=== PATIENT | female | born 1940 | race Caucasian/White ===

== ENCOUNTER 2017-02-04 12:27 | Emergency (ER) | payer MEDICARE ==
[2017-02-04 12:51] VITALS: BP 131/76
[2017-02-04] MEDS ORDERED: HYDROcodone/ACETAMIN 5-325 MG* 1 TAB PO ONE (12:58)
--- NOTE | 2017-02-04 13:11 | UC ---
Back Pain HPI - HPI Summary HPI Summary: 77 yo female with LBP radiating down both legs x 1-2 days onset after trimming trees hx spinal stenosis hx DDD sees Dr. Ford at pain [facility] for steroid injections it's been a long time since she has needed one no fever or chill no uti symptoms her symptoms are typical of her spinal stenosis when it flares - History of Current Complaint Chief Complaint: UCBackPain Stated Complaint: BACK PAIN Time Seen by Provider: 02/04/17 12:51 Hx Obtained From: Patient Hx Last Menstrual Period: n/a Onset/Duration: Sudden Onset, Lasting Days Timing: Constant Severity Initially: Severe Severity Currently: Severe - 8 Pain Scale Used: 0-10 Numeric Back Pain: Is Diffuse, Radiates To - down both legs Character: Dull, Aching Aggravating: Movement Alleviating: Nothing Related History: Similar Episode Dx As - spinal stenosis - Allergies/Home Medications Allergies/Adverse Reactions: Allergies Allergy/AdvReac Type Severity Reaction Status Date / Time Azithromycin [From Zithromax] Allergy Severe Swelling Verified 02/04/17 12:34 Of Face,Lips,& Throat Losartan Allergy Severe Swelling Verified 02/04/17 12:34 Of Face,Lips,& Throat Sulfa Antibiotics Allergy Severe Swelling Verified 02/04/17 12:34 Of Face,Lips,& Throat Cephalosporins Allergy Unknown Verified 02/04/17 12:34 Reaction Details Clarithromycin [From Biaxin] Allergy Unknown Verified 02/04/17 12:34 Reaction Details Fentanyl Allergy Unknown Verified 02/04/17 12:34 Reaction Details Lisinopril Allergy Unknown Verified 02/04/17 12:34 Reaction Details Ofloxacin Allergy Unknown Verified 02/04/17 12:34 Reaction Details Silver Sulfadiazine Allergy Unknown Verified 02/04/17 12:34 Reaction Details Soybean-containing Drug Allergy Unknown Verified 02/04/17 12:34 Products Reaction Details Tramadol Allergy Unknown Verified 02/04/17 12:34 Reaction Details PMH/Surg Hx/FS Hx/Imm Hx Endocrine History: Diabetes, Dyslipidemia Cardiovascular History: Hypertension Respiratory History: COPD GI/ History: Gastroesophageal Reflux Psychological History: Depression - Surgical History Surgical History: Yes Surgery Procedure, Year, and Place: [facility] KNEE [facility]PLACED([facility] ONE KNEE REPLACED IN [place]; parathyroid(2009, [facility] [place] gallbladder LONG TIME AGO. LEON CARPAL TUNNEL RELEASE; HYSTERECTOMY - Family History Known Family History: Positive: Hypertension - Social History Alcohol Use: None Substance Use Type: None Smoking Status (MU): Never Smoked Tobacco Have You Smoked in the Last Year: No - Immunization History Most Recent Influenza Vaccination: 2016 Most Recent Tetanus Shot: UTD Most Recent Pneumonia Vaccination: UTD Review of Systems Constitutional: Negative Skin: Negative Eyes: Negative ENT: Negative Respiratory: Negative Cardiovascular: Negative Gastrointestinal: Negative Genitourinary: Negative Motor: Negative Neurovascular: Negative Musculoskeletal: Arthralgia, Myalgia Neurological: Negative Psychological: Negative All Other Systems Reviewed And Are Negative: Yes Physical Exam Triage Information Reviewed: Yes Appearance: Well-Appearing, No Pain Distress, Well-Nourished Vital Signs: Initial Vital Signs Temp 97.4 F 02/04/17 12:41 Pulse 83 02/04/17 12:41 Resp 18 02/04/17 12:41 BP 131/76 02/04/17 12:41 Pulse Ox 95 02/04/17 12:41 Vital Signs Reviewed: Yes Eyes: Positive: Conjunctiva Clear ENT: Positive: Hearing grossly normal. Negative: Nasal congestion, Nasal drainage, Trismus, Muffled/hoarse voice Neck: Positive: Supple, Nontender Respiratory: Positive: Lungs clear, Normal breath sounds, No respiratory distress, No accessory muscle use Cardiovascular: Positive: RRR, No Murmur. Negative: Tachycardia, Bradycardia Musculoskeletal: Positive: Strength Intact, No Edema Neurological: Positive: Alert, Muscle Tone Normal Psychological Exam: Normal Skin Exam: Normal Back Pain Course/Dx - Differential Dx/Diagnosis Provider Diagnoses: acute exacerbation of spinal stenosis/DDD Discharge - Discharge Plan Condition: Stable Disposition: HOME Prescriptions: HYDROcodone/ACETAMIN 5-325 MG* [[place] 5-325 TAB*] 1 tab PO Q4H PRN #15 tab MDD 5 PRN Reason: Pain Patient Education Materials: Lumbar Spinal Stenosis (ED), Degenerative Disc Disease (ED) Referrals: Sinan Juarez MD [Primary Care Provider] - If Needed Additional Instructions: call your pain specialist for follow up (Dr. Ford)
== END 2017-02-04 13:15 | disposition home or self-care (01) ==
LOC: UCCORT 12:27
DX: M48.06 Spinal stenosis, lumbar region (principal); M51.36 Other intervertebral disc degeneration, lumbar region; Z88.1 Allergy status to other antibiotic agents; Z88.2 Allergy status to sulfonamides; Z88.8 Allergy status to other drugs, medicaments and biological substances
CPT/HCPCS: 99212; G0463

== ENCOUNTER 2017-12-30 09:10 | Emergency (ER) | payer MEDICARE ==
--- OUTSIDE RECORDS SUMMARY | 2017-12-30 09:20 | XMS REPORT ---
:1940 External Reference #:[id number] Author Organization [facility] Address [address] [address] Phone [phone] Care Team Providers Name Role Phone iSnan Juarez MD Care Team Information Area Counselor Unavailable Payers Type Date Identification Numbers Payment Provider Subscriber Commercial Effective: Policy Number: BCBS Medicare Jadyn Correa 2014 [id number] [facility] Number: [id number] [address] [address] PayID: [id number] JEFF Burris [phone] Problems Date Description Provider Status Onset: 01/08/2014 Allergic rhinitis Sinan Juarez MD Active Onset: 05/07/2013 Disorder of magnesium metabolism Sinan Juarez MD Active Onset: 10/11/2012 Mixed hyperlipidemia Sinan Juarez MD Active Onset: 04/11/2012 Urinary incontinence Sinan Juarez MD Active Onset: 10/20/2010 Type 2 diabetes mellitus Sinan Juarez MD Active Onset: 12/16/2009 Vitamin D deficiency Sinan Juarez MD Active Onset: 06/16/2009 Degenerative joint disease Sinan Juarez MD Active involving multiple joints Onset: 07/10/2005 Irritable bowel syndrome Active Onset: 07/10/2005 Peripheral venous insufficiency Active Onset: 07/10/2005 Lumbosacral spondylosis without Active myelopathy Onset: 10/28/2004 Hormone replacement therapy Sinan Juarez MD Active Onset: 07/05/2014 Hypoxemia Sinan Juarez MD Active Onset: 02/19/2015 Obstructive sleep apnea syndrome Sinan Juarez MD Active Onset: 02/19/2015 Essential tremor Sinan Juarez MD Active Onset: 06/16/2015 Essential hypertension Sinan Juarez MD Active Onset: 03/24/2016 Mild recurrent major depression Sinan Juarez MD Active Onset: 10/28/2004 Gastroesophageal reflux disease Sinan Juarez MD Active Onset: 12/19/2006 Depressive disorder Sinan Juarez MD Inactive Inactive: 03/24/2016 Onset: 07/19/2005 Angioedema Sinan Juarez MD Inactive Inactive: 03/24/2016 Onset: 09/03/2011 Acute sinusitis Inactive Inactive: 03/24/2016 Onset: 07/10/2005 Pure hypercholesterolemia Inactive Inactive: 03/24/2016 Onset: 07/10/2005 Morbid obesity Inactive Inactive: 03/24/2016 Onset: 11/19/2014 Type II diabetes mellitus Sinan Juarez MD Inactive uncontrolled Inactive: 03/24/2016 Onset: 07/05/2014 Benign essential hypertension Sinan Juarez MD Inactive Inactive: 03/24/2016 Onset: 10/05/2007 Localized, primary osteoarthritis Sinan Juarez MD Resolved of the lower leg Resolved: 10/13/2017 Onset: 07/27/2007 Primary hyperparathyroidism Sinan Juarez MD Resolved Resolved: 10/13/2017 Social History Type Date Description Comments Marital Status Lives With Alone Occupation Retired Cigarette Use Never Smoked Cigarettes ETOH Use Rarely consumes alcohol Smoking Patient has never smoked Allergies, Adverse Reactions, Alerts Date Description Reaction Status Severity Comments 07/04/2014 Cephalosporins active SOB/Angioedema 10/20/2010 Ofloxacin insomnia active 01/26/2014 Clarithromycin active 02/14/2006 Fentanyl active Throat Swelling 01/12/2005 Silver Sulfadiazine active Edema 07/04/2014 Biaxin active ? RXN 07/05/2014 Azithromycin active ? RXN 07/05/2014 Ofloxacin active Insomnia 05/12/2016 Soybean-containing Drug Anaphylaxis active Severe Products 05/12/2016 Tramadol lip swelling active 05/12/2016 Lisinopril eye swelling active Medications Medication Date Status Form Strength Qnty SIG Indications Ordering Provider Doxycycline 12/26 Hx Capsules 100mg 20cap 1 by mouth R05 Digiovann Monohydrate /2017 s twice a day a, - for 10 days Mia, 01/05 - only fill PHOTOGRAPHY MANAGER if worsening by 7/4 or not improving by 7/6 Citalopram 10/17 Active Tablets 20mg 90tab 1 by mouth F33.0 Digiovann Hydrobromide s every day aSinan MD Cholestyramine 04/04 Active Packet 4gm 60uni Take 1 K58.9 Digiovann ts Packet By a, Mouth Daily Sinan In Evening as Directed Estropipate 04/01 Active Tablets 0.75mg 180ta 2 pills by Z79.890 Digiovann bs mouth once a a, day MD Sinan Clotrimazole 01/27 Active Cream 1% 15gm 1 R21 King, application Aranza to affected PA area twice daily Fluticasone 11/26 Active Suspension 50mcg/Act 1unit 1 spray each J06.9 Digiovann Propionate /2016 s nostril a, daily Mia, PHOTOGRAPHY MANAGER J30.9 Freestyle 11/15/2016 Active Strips 100units use as E11.9 Digiovanna, Lite Test directed MD Sinan twice a day Amlodipine 10/21/2016 Active Tablets 5m 90tabs take one I10 Digiovanna, Besylate g tablet by MD Sinan mouth every day Ventolin HFA 06/14/2016 Active Aerosol 10 8gm 2 puffs every J45.40 Digiovanna, 8( 4 hours as MD Sinan 90 needed Ba se ) mc g/ Ac t Aspirin 03/10/[address] 81 OTC 1 by mouth Digiovanna, mg every day MD Sinan Glucometer 11/19/2014 Active 1units Check E11.65 Digiovanna, fingerstick MD Sinan blood sugar each moring, fasting E11.9 Test Strips For 11/19/2014 Active 50units Check blood E11.65 Ann, Glucometer sugar each am MD Sinan - fasting E11.9 Lancets For 11/19/2014 Active 50units Use each am to E11.65 Ann, Glucometer check fasting MD Sinan blood sugar E11.9 Metformin HCL 11/19/2014 Active Tablets 850mg 180tabs take one E11.65 Digiovanna, tablet by MD Sinan mouth twice a day with a meal E11.9 Glipizide ER 11/19/2014 Active Tablets ER 10mg 90tabs take one E11.65 Digiovanna, 24HR tablet by MD Sinan mouth every day E11.9 Nystatin-Triamcinolone 10/11/2014 Active Ointment 046363-1.1Unit/GM-% 60gm apply to B37.2 King, veronica Aranza, opal PA bid-tid Albuterol Sulfate 04/18/2014 Active Nebulizer (2.5mg/3ML) 0.083% 75ml 1 vial J20.9 Digiovann via a, nebulizer Sinan, every 4 MD hours as needed wheezing J45.40 [facility] Vitamin D3 04/11/2012 Active Capsules 1000Unit 1 po qd E55.9 Sinan Juarez MD Nabumetone 07/14/2011 Active Tablets 500mg 180t take one M15.0 Digiovanna, abs tablet by MD Sinan mouth twice a day with food M15.9 Simvastatin 12/11/2008 Active Tablets 20mg 90tabs take one E78.2 Digiovanna, tablet by MD Sinan mouth every day E78.0 Desloratadine Active Tablets 5mg 1 by mouth T78.3xxD Unknown every day Levocetirizine Active Tablets 5mg 90tab 1 by mouth T78.3xxD Digiovanna, Dihydrochloride s every day MD Sinan J30.9 Epinephrine Active Solution 0.3mg/0.3ML 2units inject T78.3xxD Ann, Auto-Inject if MD Sinan needed then call 911. Famotidine Active Tablets 20mg 90tabs one by K21.9 Niiovandarrick, mouth MD Sinan once a day Diphenhydram Active Capsules 25mg 1 by Unknown ine HCL mouth every 6 hours as needed itching Hydroxyzine Active Tablets 25mg 270tabs 3 Digiovanna, HCL tablet MD Sinan before bed Metoprolol Active Tablets ER 50mg 90tabs 1 by I10 Digdaniele , Succinate ER 24HR mouth MD Sinan every at night G25.0 Oxybutynin Active Tablets ER 5mg 90tabs take one R32 Digiovanna, Chloride ER 24HR tablet by MD Sinan mouth every day Torsemide Active Tablets 10mg 90tabs take one I10 Digiovanna , tablet by MD Sinan mouth every day R60.9 Citalopram Hx Tablets 10mg 90tabs take one tablet F33.0 Digiovan Hydrobromide 018 - by mouth every na, day Daphne Menon MD Doxycycline Hyclate Hx Tablets 100mg 20tabs 1 by mouth twice J01.90 Digiovan 017 - a day x 10 days na, (w/ food but not Gatito Menon milk) Premarin Hx Tablets 0.3mg 90tabs 1 pill by mouth Z79.89 Digiovan 017 - once a day 0 na, Gatito Menon MD Mucus Relief ER Hx Tablets ER 600mg 60tabs 1 by mouth every J06.9 Digiovan 017 - 12HR 12 hours for 5 na, days then as Mia 017 needed for , PHOTOGRAPHY MANAGER persistent congestion Unisom Hx Tablets 25mg 1 by mouth every Digiovan 017 - night na, Gatito Menon MD Magnesium Hx Tablets 400mg 1 by mouth every E83.40 Digiovan 017 - day na, Gatito Menon MD Doxycycline Hyclate Hx Capsules 100mg 20caps 1 tablet by J01.00 Gatito Malik - mouth twice Aranza, daily for 10 PA 017 days J20.9 Amoxicillin 06/10/2016 - Hx Tablets 500mg 20tabs 1 by mouth R05 Schafer, 06/20/2016 twice a day DO Pola Amlodipine 04/08/2016 - Hx Tablets 2.5mg 90tabs 1 by mouth I10 Digiovanna Besylate 10/21/2016 every day , MD Sinan Prednisone 03/22/2016 - Hx Tablets 10mg as directed T78.3 Unknown 03/25/2016 x 3 Days xxD Diphenoxylate-Atro 03/10/2016 - Hx Tablets 2.5-0.0 1 qid prn R19.7 Digiovanna pine 06/21/2017 25mg loose stools , MD Sinan Freestyle Lite 01/05/2016 - Hx Strip 50units use to test E11.9 Digiovanna Test 11/15/2016 each morning , MD Sinan Magnesium Oxide 11/04/2015 - Hx Tablets 420mg 1 a day E83.4 Digiovanna 03/28/2017 2 Sinan MD Nebulizer 10/02/2015 - Hx Misc 1units Nebulizer + J20.9 Digiovanna 03/10/2016 tubing , MD Sinan Prednisone 10/02/2015 - Hx Tablets 20mg 10tabs 1 pill by J20.9 Digiovanna 10/12/2015 mouth twice , Sinan, a day with MD food for 5 days Mucinex 05/06/2015 - Hx Tablets ER 600mg 40tabs 1 by mouth R06.2 Digiovanna 05/15/2015 12HR every 12 , hours for 5 Mia, days then as PHOTOGRAPHY MANAGER needed for persistent congestion Tramadol 05/06/2015 - Hx Tablets 37.5-32 30tabs 1 by mouth B02.9 Digiovanna Hydrochloride/Acet 06/21/2017 5mg every 8 , Sinan, aminophen hours as MD needed for pain Famciclovir 04/30/2015 - Hx Tablets 500mg 21tabs 1 by mouth B02.9 Digiovanna 05/07/2015 every 8 , hours for 7 Mia, days PHOTOGRAPHY MANAGER Levofloxacin 04/23/2015 - Hx Tablets 250mg 5tabs 1 pill by J01.9 Digiovanna 04/28/2015 mouth once 0 , Sinan, daily for 5 MD days Prednisone 04/23/2015 - Hx Tablets 20mg 4tabs 1 pill by J20.9 Digiovanna 04/25/2015 mouth twice , Sinan, a day with food for 2 days Levofloxacin 04/13/2015 - Hx Tablets 750mg 7tabs 1 by mouth Digiovanna 04/20/2015 every day , MD Sinan Zostavax 02/19/2015 - Hx Solution 85914Tn 1units 1 dose Digiovanna 03/01/2015 Rec t/0.65M , Cely Menon MD Cyclobenzaprine 12/10/2014 - Hx Tablets 5mg 30tabs 1-2 by mouth S33.5 Digiovanna HCL 03/10/2016 every 8 xxA , Sinan, hours as MD needed for pain Fluconazole 10/25/2014 - Hx Tablets 100mg 3tabs 1 by mouth 616.1 Schafer, 10/28/2014 daily as 0 Pola, needed DO Triamcinolone 10/25/2014 - Hx Cream 0.1% 30gm apply to 616.1 Schafer, Acetonide 11/03/2014 affected 0 Pola, area bid-tid DO Hydrocodone-Acetam 10/25/2014 - Hx Tablets 5-325mg 30tabs 1/2 or 1 by M15.0 Digiovanna inophen 06/16/2015 mouth every , Sinan, 8 hours as MD needed for severe back pain M47.26 Discontinue 10/12/2014 - Hx 799.02 Digiovandarrick, Home Oxygen 10/19/2014 MD Sinan Aleve 07/22/2014 - Hx Capsules 220 OTC 2 by mouth Digiovanna, 03/10/2016 mg twice a day MD Sinan as needed Albuterol 07/08/2014 - Hx Nebulizer (2. 25unit use 1 vial 786.09 Digiovanna, Sulfate 06/21/2014 5mg s in nebulizer MD Sinan /3M every 3 L) hours if 0.0 needed for 83% sob Albuterol 07/05/2014 - Hx Nebulizer (5m 25unit 1 vial via Digiovanna, Sulfate 07/08/2014 g/M s nebulizer MD Sinan L) every 3 0.5 hours as % needed for wheezing or SOB Proair HFA 07/05/2014 - Hx Aerosol 108 1units 2 puffs J45.40 Digiovanna , 06/14/2016 (90 every 3 MD Sinan Bas hours as e) needed mcg /Ac t Metoprolol 06/18/2014 - Hx Tablets ER 25m Once Daily Unknown Succinate ER 10/11/2014 24HR g Premarin 05/14/2014 - Hx Tablets 0.6 30tabs take one Z79.890 Digiovanna , 03/28/2017 25m tablet by MD Sinan g mouth every day Pindolol 04/29/2014 - Hx Tablets 5mg 135tab 1 by mouth 401.1 Arun Allen MD 10/11/2014 s every in the morning and 1 by mouth every at night 333.1 Anexsia 01/14/2014 - Hx Tablets 5-325mg 30tabs 1/2 or 1 Digiovanna, 11/18/2014 tablet by Sinan He MD mouth every 8 hours as needed for severe arthritis or back pain Montelukast 11/02/2013 - Hx Tablets 10mg 90tabs take 1 Digiovanna, Sodium 06/21/2014 tablet by Sinan He MD mouth at bedtime Ventolin HFA 01/04/2013 - Hx Aerosol 108mcg/Act 1units 2 puffs by Ann, 07/05/2014 mouth every MD Sinan 3 hours as needed sob Loratadine 12/12/2012 - Hx Tablets 10mg 30tabs Take One J3 Digiovanna, 03/10/2016 Tablet By 0. MD Sinan Mouth Every 9 Day Vesicare 04/11/2012 - Hx Tablets 10mg 30tabs 1 by mouth 78 Digiovanna, 06/27/2012 every day 8. Sinan He MD 30 Citalopram 11/17/2011 - Hx Tablets D10 mg 90tabs take one F3 Digiovanna , Hydrobromide 08/09/2017 tablet by 3. MD Sinan mouth every 0 day Pantoprazole 07/14/2011 - Hx Tablets DR 40mg 30tabs Take One 53 Digiovanna, Sodium 05/15/2015 Tablet By 0. MD Sinan Mouth Every 81 Morning Losartan 12/16/2009 - Hx Tablets 100mg 90tabs 1 by mouth I1 Digiovanna, Potassium 03/24/2016 every day 0 MD Sinan Epinephrine 07/19/2005 - Hx Solution 0.3mg/0.3M 1Pack as directed Digiovanna, 03/10/2016 Auto-Inject L Sinan He MD Toprol XL - Hx Tablets ER 25mg 1 by mouth 40 Arun Allen 07/05/2014 24HR qam; 2 PO 1. MD qpm 1 Metoprolol - Hx 50mg 1 opo qAM, 40 Hubert Bassett 01/21/2015 2 po qPM 1. MD 1 Venlafaxine HCL - Hx Tablets 37.5mg Unknown 06/21/2014 Premarin - Hx Solution 25mg Unknown 11/18/2014 Rec Anexsia - Hx Tablets 7.5-650mg Q8HR prn Unknown 10/25/2014 Pain Pindolol - Hx Tablets 5mg 1 by mouth 40 Ann, 02/19/2015 every in 1. MD Sinan the morning 1 and 1 by mouth every at night 333.1 Toprol XL - Hx Tablets ER 25mg 1 by mouth Hubert Bassett 01/21/2015 24HR qam; 2 PO MD qpm Metoprolol - Hx Tablets ER 100mg 1 by mouth I10 Elian Bassetta Succinate ER 10/15/2016 24HR each PM G25.0 Metoprolol - Hx Tablets ER 50mg 1 by mouth G25.0 Elian Bassetta Succinate ER 10/13/2015 24HR every Am I10 Advair Diskus - Hx Aerosol 100-50mcg/Dose 1 puff twice J45.40 Unknown 03/10/2016 a day Prednisone - Hx Tablets 20mg 2 tablets Unknown 03/10/2016 daily for 5 days. Epipen 2-Jordan - Hx Solution 0.3mg/0.3ML use as Serjio 03/10/2016 Auto-Inject directed as Allergy needed for and reaction to Asthma yellow jacket sting Breo Ellipta - Hx Aerosol 100-25mcg/Inh 1 inhalation J45.40 Unknown 03/28/2017 qd Immunizations CPT Code Status Date Vaccine Reaction Lot # [id number] Given 03/24/2017 Fluzone Highdose Age 65 And Over Preservative & Antibiotic Free 92534 Given 02/19/2015 Prevnar 13 Pneumococal Conjugate [facility]# [id number] [id number] Vaccine 96470 Given 05/06/2013 Afluria Or Fluvirin Flu Vac Intramuscular 29372 Given 04/11/2012 Afluria Or Fluvirin Flu Vac Intramuscular 02210 Given 04/05/2011 Afluria Or Fluvirin Flu Vac Intramuscular 27674 Given 03/23/2010 Afluria Or Fluvirin Flu Vac Intramuscular 99964 Given 04/11/2008 Afluria Or Fluvirin Flu Vac Intramuscular 61696 Given 03/29/2007 Afluria Or Fluvirin Flu Vac Intramuscular 77955 Given 05/16/2006 Afluria Or Fluvirin Flu Vac Intramuscular 04314 Given 12/29/2005 Tetanus And Diptheria Toxoids For Adult Use-preservative free 15657 Given 04/22/2005 Pneumococcal 23 Immunization Adult Or Immunosuppressed Patient 14076 Given 04/22/2005 Pneumococcal 23 Immunization Adult Or Immunosuppressed Patient 08140 Given 04/22/2005 Afluria Or Fluvirin Flu Vac Intramuscular 36048 Given 04/22/2005 Afluria Or Fluvirin Flu Vac Intramuscular 98979 Given 04/30/2004 Afluria Or Fluvirin Flu Vac Intramuscular Vital Signs Date Vital Result Comment 12/26/2017 Body Temperature 97.5 F Heart Rate 80 /min BP Systolic 140 mmHg BP Diastolic 80 mmHg Respiratory Rate 18 /min Height 64.5 inches 5'4.50" O2 % BldC Oximetry 95 % Ra 10/13/2017 Weight 215.00 lb Heart Rate 72 /min BP Systolic 120 mmHg BP Diastolic 76 mmHg Respiratory Rate 18 /min Height 64.5 inches 5'4.50" BMI (Body Mass Index) 36.3 kg/m2 06/22/2017 Body Temperature 97.8 F Heart Rate 87 /min BP Systolic 130 mmHg BP Diastolic 76 mmHg Respiratory Rate 18 /min O2 % BldC Oximetry 92 % Ra 05/13/2017 Body Temperature 99.0 F Heart Rate 94 /min BP Systolic 120 mmHg BP Diastolic 80 mmHg Respiratory Rate 18 /min O2 % BldC Oximetry 92 % Ra 04/19/2017 Heart Rate 74 /min BP Systolic 130 mmHg BP Diastolic 80 mmHg Respiratory Rate 18 /min 03/28/2017 Weight 219.00 lb Heart Rate 72 /min BP Systolic 122 mmHg BP Diastolic 76 mmHg Respiratory Rate 18 /min 01/27/2017 Heart Rate 68 /min BP Systolic 130 mmHg BP Diastolic 70 mmHg Respiratory Rate 18 /min 01/18/2017 Body Temperature 98.2 F Heart Rate 76 /min BP Systolic 140 mmHg BP Diastolic 80 mmHg Respiratory Rate 18 /min Height 65 inches 5'5" O2 % BldC Oximetry 9394 % 01/04/2017 Weight 220.00 lb Heart Rate 74 /min BP Systolic 120 mmHg BP Diastolic 80 mmHg Respiratory Rate 18 /min Height 65 inches 5'5" BMI (Body Mass Index) 36.6 kg/m2 12/17/2016 Weight 219.00 lb Heart Rate 78 /min BP Systolic 138 mmHg BP Diastolic 88 mmHg Height 65 inches 5'5" BMI (Body Mass Index) 36.4 kg/m2 11/26/2016 Body Temperature 97.2 F Heart Rate 83 /min BP Systolic 122 mmHg BP Diastolic 68 mmHg Respiratory Rate 18 /min Height 65 inches 5'5" O2 % BldC Oximetry 86 % recheck 98% 11/15/2016 Heart Rate 18 /min BP Systolic 134 mmHg BP Diastolic 74 mmHg Respiratory Rate 18 /min Height 65 inches 5'5" 10/05/2016 Weight 228.00 lb Heart Rate 74 /min BP Systolic 122 mmHg BP Diastolic 80 mmHg Respiratory Rate 18 /min Height 65 inches 5'5" BMI (Body Mass Index) 37.9 kg/m2 09/27/2016 Body Temperature 97.8 F Heart Rate 80 /min BP Systolic 136 mmHg BP Diastolic 70 mmHg Respiratory Rate 20 /min O2 % BldC Oximetry 94 % 06/14/2016 Body Temperature 97.3 F Heart Rate 72 /min BP Systolic 136 mmHg BP Diastolic 80 mmHg Respiratory Rate 18 /min 06/10/2016 Body Temperature 97.8 F Heart Rate 68 /min BP Systolic 130 mmHg BP Diastolic 70 mmHg Respiratory Rate 18 /min Height 65 inches 5'5" 04/11 O2 % BldC Oximetry 92 % 05/12/2016 Heart Rate 72 /min BP Systolic 126 mmHg BP Diastolic 74 mmHg Respiratory Rate 16 /min Height 65 inches 5'5" 04/1104/29/2016 Body Temperature 98.0 F Heart Rate 76 /min BP Systolic 140 mmHg BP Diastolic 80 mmHg BP Systolic Recheck 132 mmHg BP Diastolic Recheck 82 mmHg Respiratory Rate 18 /min Height 65 inches 04/1104/22/2016 Heart Rate 76 /min BP Systolic 132 mmHg 136/102 BP Diastolic 100 mmHg 136/102 Respiratory Rate 18 /min 04/08/2016 Body Temperature 97.4 F Heart Rate 77 /min BP Systolic 162 mmHg BP Diastolic 90 mmHg BP Systolic Recheck 152 mmHg BP Diastolic Recheck 100 mmHg Respiratory Rate 18 /min Height 64.5 inches 5'4.50" O2 % BldC Oximetry 95 % 03/24/2016 Weight 224.00 lb Heart Rate 74 /min BP Systolic 130 mmHg BP Diastolic 80 mmHg Respiratory Rate 18 /min Height 64.5 inches 5'4.50" BMI (Body Mass Index) 37.9 kg/m2 03/10/2016 Body Temperature 97.5 F Weight 225.00 lb Heart Rate 76 /min BP Systolic 132 mmHg BP Diastolic 82 mmHg Respiratory Rate 18 /min 02/11/2016 Heart Rate 76 /min BP Systolic 140 mmHg BP Diastolic 90 mmHg Respiratory Rate 18 /min 12/22/2015 Body Temperature 97.9 F Heart Rate 72 /min BP Systolic 134 mmHg BP Diastolic 78 mmHg Respiratory Rate 18 /min Height 64.6 inches 5'4.60" 11/04/2015 Heart Rate 74 /min BP Systolic 120 mmHg BP Diastolic 80 mmHg Respiratory Rate 18 /min Height 64.6 inches 5'4.60" 10/15/2015 Body Temperature 97.5 F Weight 229.00 lb Heart Rate 73 /min BP Systolic 132 mmHg BP Diastolic 74 mmHg Respiratory Rate 18 /min Height 64.6 inches 5'4.60" O2 % BldC Oximetry 9697 % BMI (Body Mass Index) 38.6 kg/m2 10/02/2015 Weight 228.00 lb Heart Rate 82 /min BP Systolic 120 mmHg BP Diastolic 70 mmHg Respiratory Rate 20 /min Height 64.6 inches 5'4.60" O2 % BldC Oximetry 93 % Ra/Has Nail Arabic On O2 Saturation Level with Exercise 90 % Ra w/ walking BMI (Body Mass Index) 38.4 kg/m2 06/16/2015 Heart Rate 68 /min BP Systolic 152 mmHg L/Reg BP Diastolic 98 mmHg L/Reg BP Systolic Recheck 138 mmHg L at rest seated BP Diastolic Recheck 88 mmHg L at rest seated Respiratory Rate 21 /min Height 64.6 inches 5'4.60" 05/15/2015 Body Temperature 97.0 F Heart Rate 64 /min BP Systolic 142 mmHg BP Diastolic 90 mmHg Respiratory Rate 18 /min O2 % BldC Oximetry 9394 % 05/06/2015 Body Temperature 96.9 F Heart Rate 80 /min BP Systolic 138 mmHg BP Diastolic 78 mmHg O2 % BldC Oximetry 9394 % Ra 04/30/2015 Body Temperature 98.5 F Heart Rate 76 /min BP Systolic 144 mmHg BP Diastolic 84 mmHg Respiratory Rate 19 /min 04/23/2015 Body Temperature 97.6 F Heart Rate 78 /min BP Systolic 152 mmHg L/LG BP Diastolic 82 mmHg L/LG Respiratory Rate 20 /min 04/18/2015 Body Temperature 97.4 F Heart Rate 88 /min BP Systolic 132 mmHg L/Reg BP Diastolic 82 mmHg L/Reg Respiratory Rate 18 /min O2 % BldC Oximetry 96 % Ra 03/11/2015 Weight 220.00 lb Heart Rate 78 /min BP Systolic 132 mmHg BP Diastolic 80 mmHg Respiratory Rate 18 /min 02/19/2015 Weight 220.00 lb Heart Rate 74 /min BP Systolic 134 mmHg BP Diastolic 82 mmHg Respiratory Rate 18 /min 12/20/2014 Weight 213.00 lb Up 3# Heart Rate 78 /min BP Systolic 136 mmHg R/Reg BP Diastolic 82 mmHg R/Reg Respiratory Rate 22 /min Height 64.6 inches 5'4.60" BMI (Body Mass Index) 35.9 kg/m2 12/10/2014 Heart Rate 72 /min BP Systolic 128 mmHg BP Diastolic 76 mmHg Respiratory Rate 18 /min Height 64.25 inches 5'4.25" 11/19/2014 Weight 210.00 lb Down 6# Heart Rate 74 /min BP Systolic 182 mmHg L/Reg BP Diastolic 96 mmHg L/Reg BP Systolic Recheck 160 mmHg L at rest BP Diastolic Recheck 90 mmHg L at rest Respiratory Rate 22 /min Height 64.25 inches 5'4.25" BMI (Body Mass Index) 35.8 kg/m2 10/25/2014 Weight 216.00 lb Heart Rate 70 /min BP Systolic 144 mmHg BP Diastolic 80 mmHg Respiratory Rate 18 /min Height 64.5 inches 5'4.50" BMI (Body Mass Index) 36.5 kg/m2 10/11/2014 Weight 221.00 lb Down 24# Heart Rate 74 /min BP Systolic 120 mmHg BP Diastolic 80 mmHg Height 64.5 inches 5'4.50" O2 % BldC Oximetry 95 % BMI (Body Mass Index) 37.3 kg/m2 07/19/2014 Body Temperature 97.1 F Heart Rate 84 /min BP Systolic 116 mmHg BP Diastolic 66 mmHg Respiratory Rate 22 /min Height 64.5 inches 5'4.50" O2 Saturation Level with Exercise 95 % 07/05/2014 Heart Rate 90 /min BP Systolic 136 mmHg BP Diastolic 82 mmHg Respiratory Rate 20 /min Height 64.5 inches 5'4.50" O2 % BldC Oximetry 9093 % Ra 06/14/2014 Body Temperature 97.1 F Weight 245.00 lb Heart Rate 82 /min BP Systolic 130 mmHg BP Diastolic 90 mmHg Respiratory Rate 22 /min Height 64.5 inches 5'4.50" O2 % BldC Oximetry 91 % 06/06/2014 Body Temperature 97.0 F Heart Rate 78 /min BP Systolic 142 mmHg BP Diastolic 88 mmHg Respiratory Rate 18 /min Height 64.5 inches 5'4.50" 05/14/2014 BP Systolic 140 mmHg BP Diastolic 80 mmHg 05/14/2014 Weight 240.00 lb Up 14# Heart Rate 74 /min BP Systolic 146 mmHg L/LG BP Diastolic 92 mmHg L/LG Respiratory Rate 22 /min Height 64.5 inches 5'4.50" 05/03/2014 Body Temperature 95.8 F Heart Rate 72 /min BP Systolic 138 mmHg BP Diastolic 92 mmHg Respiratory Rate 18 /min Height 64.5 inches 5'4.50" O2 % BldC Oximetry 92 % 04/10/2014 Heart Rate 76 /min BP Systolic 150 mmHg BP Diastolic 100 mmHg Respiratory Rate 20 /min Height 64.5 inches 5'4.50" 01/08/2014 BP Systolic 132 mmHg L at rest BP Diastolic 88 mmHg L at rest 01/08/2014 Weight 226.00 lb Heart Rate 84 /min BP Systolic 144 mmHg L/LG BP Diastolic 88 mmHg L/LG Respiratory Rate 21 /min Height 64.5 inches 5'4.50" 11/24/2013 Body Temperature 97.5 F Heart Rate 80 /min BP Systolic 146 mmHg BP Diastolic 82 mmHg Respiratory Rate 20 /min Height 64.5 inches 5'4.50" 11/02/2013 Body Temperature 97.7 F Heart Rate 70 /min BP Systolic 142 mmHg BP Diastolic 80 mmHg Respiratory Rate 18 /min Height 64.5 inches 5'4.50" 10/26/2013 Body Temperature 97.7 F Heart Rate 74 /min BP Systolic 152 mmHg L/LG BP Diastolic 84 mmHg L/LG Respiratory Rate 18 /min Height 64.5 inches 5'4.50" 10/05/2013 Body Temperature 97.8 F Heart Rate 72 /min BP Systolic 130 mmHg BP Diastolic 80 mmHg Respiratory Rate 18 /min Height 64.5 inches 5'4.50" 09/28/2013 Body Temperature 96.6 F Heart Rate 84 /min BP Systolic 132 mmHg BP Diastolic 88 mmHg Respiratory Rate 20 /min 09/03/2013 BP Systolic 136 mmHg L at rest BP Diastolic 86 mmHg L at rest 09/03/2013 Heart Rate 78 /min BP Systolic 142 mmHg L/LG BP Diastolic 92 mmHg L/LG Height 64.25 inches 5'4.25" Results Test Date Test Result H/L Range Note Laboratory test finding 10/19/2017 Tryptase 9.3 ug/L 2.2-13.2 1, 2 Immunoglobulin E,Total 60 IU/mL 0-100 1, 3 Complement C1Q, Quantitative 14.2 mg/dL 11.8-24.4 1, 4 Complement C4, Serum 31 mg/dL 14-44 1, 5 C1 Esterase Inhibitor 29 mg/dL 21-39 1, 6 C1 Esterase Inhibitor Function > 86 %meanno . 1, 7 [place] <0.10 kU/L Class 0 1, 8 Soybean <0.10 kU/L Class 0 1, 9 Hazelnut Tree T004 Ige <0.10 kU/L Class 0 1, 10 [place] Nut F018 <0.10 kU/L Class 0 1, 11 [place] Nut F203 <0.10 kU/L Class 0 1, 12 Cashew Nut F202 <0.10 kU/L Class 0 1, 13 F010 Sesame Seed <0.10 kU/L Class 0 1, 14 [place] Ige T010 <0.10 kU/L Class 0 1, 15 Macadamia Nut, Ige < 0.10 kU/L Class 0 1, 16 CBS W/Automated Diff 10/19/2017 White Blood Count 8.3 K/uL 3.1-10.7 1 Red Blood Count 4.87 M/uL 3.90-5.40 1 Hemoglobin 14.1 gm/dL 11.6-15.8 1 Hematocrit 41.7 % 36.0-46.1 1 Mean Cell Volume 85.6 fl 80.9-99.0 1 Mean Corpuscular HGB 29.0 pg 25.9-32.7 1 Mean Corpuscular HGB Conc 33.8 g/dL 30.8-34.3 1 Platelet Count 251 K/uL 155-360 1 Red Cell Distri Width SD 40.9 fl 3-47 1 Red Cell Distri Width %CV 13.3 % 11.7-14.4 1 Mean Platelet Volume 10.1 fL 8.9-12.4 1 Neut% 63.8 % 40.4-72.8 1 Lymph % 24.9 % 20.0-42.0 1 [place] % 6.3 % 4.3-13.2 1 Eo% 4.8 % 0.0-6.6 1 Bas% 0.2 % 0.0-1.1 1 Neut# 5.31 K/uL 1.8-7.0 1 Lymph # 2.07 K/uL 1.0-4.0 1 [place] # 0.52 K/uL 0.3-0.9 1 Eos # 0.40 K/uL 0.0-0.5 1 Baso # 0.02 K/uL 0.0-0.1 1 Basic (BMP) 10/07/2017 Sodium 137 mmol/L 135-146 17, 18 Potassium 4.6 mmol/L 3.5-5.2 17 Chloride# 100 mmol/L 97-110 17, 19 Carbon Dioxide 29 mmol/L 24-34 17 Glucose 113 mg/dL High 70-105 17 BUN 29 mg/dL High 6-26 17 Creatinine 0.9 mg/dL 0.5-1.4 17 Calcium 9.6 mg/dL 8.5-10.2 17 Non Pamela Egfr >60 >60 17, 20 Pamela Egfr >60 >60 17, 21 Anion Gap 8 mmol/L 5-15 17, 22 Lipid Treatment 10/07/2017 Cholesterol 179 mg/dL 50-199 17 Triglycerides 252 mg/dL High 30-200 17 HDL 54 mg/dL 35-85 17, 23 Chol/ HDL Ratio 3.3 ratio Low 3.7-5.6 17 VLDL 50 mg/dL High 2-29 17 LDL (Calc) 74 mg/dL 20-99 17, 24 Alt 12 U/L 3-42 17 Ast 12 U/L 8-42 17 Hemoglobin A1c 10/07/2017 Hemoglobin A1c 6.3 % High 4.1-5.9 17 Estimated Average Glucose Calc 134 mg/dL 71-140 17 CBC With Auto Diff 06/22/2017 WBC 14.6 K/uL High 4.1-11.0 25 RBC 4.80 M/uL 4.00-5.40 25 Hemoglobin 14.0 gm/dL 12.0-16.0 25 Hematocrit 41.6 % 36.0-47.0 25 MCV 86.8 fL 80.0-97.0 25 MCH 29.2 pg 27.0-32.0 25 MCHC 33.6 g/dL 32.0-36.0 25 RDW 14.1 % 11.5-14.5 25 PLT Count 335 K/ul 140-400 25 MPV 9.2 FL 7.1-10.7 25 Neutrophil 89.9 % High 35.0-75.0 25 Lymphocyte 6.5 % Low 16.0-52.0 25 Monocyte 1.9 % Low 2.0-10.0 25 Eosinophil 1.0 % 0.0-5.0 25 Basophil 0.7 % 0.0-4.0 25 Abs Neutrophils 13.1 K/uL High 2.1-8.0 25 Abs Lymphocytes 0.9 K/uL 0.8-5.5 25 Abs Monocytes 0.3 K/uL 0.1-1.0 25 Abs Eosinophils 0.1 K/uL 0.0-0.5 25 Abs Basophils 0.1 K/uL 0.0-0.3 25 Comprehensive Met Panel-FCM 06/22/2017 Sodium 134 mmol/L Low 135-146 25 , 26 Potassium 4.7 mmol/L 3.5-5.2 25 Chloride# 98 mmol/L 97-110 25, 27 Carbon Dioxide 22 mmol/L Low 24-34 25 Glucose 180 mg/dL High 70-105 25 Creatinine 1.0 mg/dL 0.5-1.4 25 Calcium 9.7 mg/dL 8.5-10.2 25 Total Protein 6.8 g/dL 6.0-8.0 25 Albumin 4.5 g/dL 3.6-4.9 25 Globulin 2.3 g/dL 2.0-3.5 25 A/G Ratio 2.0 Ratio 1.0-2.2 25 Total Bilirubin 0.4 mg/dL 0.1-1.3 25 Alkaline Phosphatase 67 U/L 24-140 25 Alt 16 U/L 3-42 25 Ast 13 U/L 8-42 25 Pamela Egfr >60 >60 25, 28 Non Pamela Egfr 55 Low >60 25, 29 Anion Gap 14 mmol/L 7-16 25, 30 BUN 38 mg/dL High 6-26 25 Laboratory test finding 06/22/2017 Esr 37 mm/hr High 0-20 25 CPK 20 U/L 12-199 25 Laboratory test finding 06/22/2017 Troponin I <0.06 ng/mL (0.00-0.10) 25 , 31 Laboratory test finding 04/28/2017 Vit D25oh 31 ng/mL 31-100 32 Magnesium 1.8 mg/dL 1.5-2.7 32 TSH 2.94 uIU/mL 0.35-4.94 32 Basic (BMP) 04/28/2017 Sodium 140 mmol/L 135-146 32, 33 Potassium 4.2 mmol/L 3.5-5.2 32 Chloride# 104 mmol/L 97-110 32, 34 Carbon Dioxide 28 mmol/L 24-34 32 Glucose 107 mg/dL High 70-105 32 Creatinine 0.9 mg/dL 0.5-1.4 32 Calcium 9.1 mg/dL 8.5-10.2 32 Non Pamela Egfr 60 Low >60 32, 35 Pamela Egfr >60 >60 32, 36 Anion Gap 8 mmol/L 7-16 32, 37 BUN 31 mg/dL High 6-26 32 Lipid Treatment 04/28/2017 Cholesterol 194 mg/dL 50-199 32 Triglycerides 189 mg/dL 30-200 32 HDL 63 mg/dL 35-85 32, 38 Chol/ HDL Ratio 3.1 ratio Low 3.7-5.6 32 VLDL 38 mg/dL High 2-29 32 LDL (Calc) 93 mg/dL 20-99 32, 39 Alt 16 U/L 3-42 32 Ast 12 U/L 8-42 32 Hemoglobin A1c 04/28/2017 Hemoglobin A1c 6.4 % High 4.1-5.9 32 Estimated Average Glucose Calc 137 71-140 32 CBC With Auto Diff 04/28/2017 WBC 10.2 K/uL 4.1-11.0 32 RBC 4.59 M/uL 4.00-5.40 32 Hemoglobin 13.7 gm/dL 12.0-16.0 32 Hematocrit 40.4 % 36.0-47.0 32 MCV 88.1 fL 80.0-97.0 32 MCH 29.8 pg 27.0-32.0 32 MCHC 33.9 g/dL 32.0-36.0 32 RDW 13.2 % 11.5-14.5 32 PLT Count 253 K/ul 140-400 32 MPV 8.6 FL 7.1-10.7 32 Neutrophil 66.6 % 35.0-75.0 32 Lymphocyte 24.8 % 16.0-52.0 32 Monocyte 5.0 % 2.0-10.0 32 Eosinophil 3.1 % 0.0-5.0 32 Basophil 0.5 % 0.0-4.0 32 Abs Neutrophils 6.8 K/uL 2.1-8.0 32 Abs Lymphocytes 2.5 K/uL 0.8-5.5 32 Abs Monocytes 0.5 K/uL 0.1-1.0 32 Abs Eosinophils 0.3 K/uL 0.0-0.5 32 Abs Basophils 0.1 K/uL 0.0-0.3 32 Comprehensive Metabolic Panel 02/27/2017 Glucose 129 mg/dL High 74-106 40 BUN 30 mg/dL High 7-18 40 Creatinine 0.9 mg/dL 0.6-1.3 40 Glom Filtration Rate, Estimate >60 mL/min >60 40 If >60 mL/min >60 40, 41 BUN/Creat 33.3 ratio 40 Sodium 135 mmol/L Low 136-145 40 Potassium 4.0 mmol/L 3.5-5.1 40 Chloride 101 mmol/L 98-107 40 Carbon Dioxide 26 mmol/L 21-32 40 Anion Gap 8 mEq/L 8-16 40 Calcium 8.2 mg/dL Low 8.5-10.1 40 Total Protein 7.0 g/dL 6.4-8.2 40 Albumin 3.2 g/dL Low 3.4-5.0 40 Globulin 3.8 g/dL 1.9-4.3 40 Alb/Glob 0.8 ratio 40 Bilirubin,Total 0.4 mg/dL 0.2-1.0 40 Sgot/Ast 11 U/L Low 15-37 40, 42 SGPT/Alt 19 U/L 12-78 40 Alkaline Phosphatase 68 U/L 45-117 40 Laboratory test finding 02/27/2017 CK 26 U/L 26-192 40 Troponin-I < 0.015 ng/mL 40, 43 CBS W/Automated Diff 02/27/2017 White Blood Count 14.2 K/uL High 3.1-10.7 40 Red Blood Count 4.27 M/uL 3.90-5.40 40 Hemoglobin 12.6 gm/dL 11.6-15.8 40 Hematocrit 35.9 % Low 36.0-46.1 40 Mean Cell Volume 84.1 fl 80.9-99.0 40 Mean Corpuscular HGB 29.5 pg 25.9-32.7 40 Mean Corpuscular HGB Conc 35.1 g/dL High 30.8-34.3 40 Platelet Count 288 K/uL 150-400 40 Red Cell Distri Width SD 41.5 fl 3-47 40 Red Cell Distri Width %CV 13.9 % 11.7-14.4 40 Mean Platelet Volume 10.2 fL 8.9-12.4 40, 44 Neut# 10.83 K/uL High 1.8-7.0 40 Lymph # 1.93 K/uL 1.0-4.0 40 [place] # 1.28 K/uL High 0.3-0.9 40 Eos # 0.10 K/uL 0.0-0.5 40 Baso # 0.02 K/uL 0.0-0.1 40 Slide Review 02/27/2017 Slide Review DIFF ORDERED 40 Differential-WBC Confirm 02/27/2017 Total Cells Counted 100 #CELLS 40 Neutrophils% 73 % 33-73 40 Lymph% 17 % Low 20-42 40 Monocyte% 9 % 0-10 40 Eosinophil% 1 % 0-5 40 Platelet Estimate NORMAL 40 Hypochromia 0-1+ 40 Anisocytosis 0-1+ 40 Microcytosis 1+ 40 CBC With Auto Diff 01/27/2017 WBC 10.5 K/uL 4.1-11.0 RBC 4.89 M/uL 4.00-5.40 Hemoglobin 13.8 gm/dL 12.0-16.0 Hematocrit 42.3 % 36.0-47.0 MCV 86.5 fL 80.0-97.0 MCH 28.3 pg 27.0-32.0 MCHC 32.7 g/dL 32.0-36.0 RDW 13.7 % 11.5-14.5 PLT Count 305 K/ul 140-400 Neutrophil 71.4 % 35.0-75.0 Lymphocyte 17.9 % 16.0-52.0 Monocyte 5.7 % 2.0-10.0 Eosinophil 4.4 % 0.0-5.0 Basophil 0.6 % 0.0-4.0 Abs Neutrophils 7.5 K/uL 2.1-8.0 Abs Lymphocytes 1.9 K/uL 0.8-5.5 Abs Monocytes 0.6 K/uL 0.1-1.0 Abs Eosinophils 0.5 K/uL 0.0-0.5 Abs Basophils 0.1 K/uL 0.0-0.3 Lyme Igm/Igg AB -RL 01/27/2017 Lyme Igm/Igg AB @ NEGATIVE (Neg) 45 Basic (BMP) 12/31/2016 Sodium 143 mmol/L 135-146 46, 47 Potassium 4.5 mmol/L 3.5-5.2 46 Chloride# 104 mmol/L 97-110 46, 48 Carbon Dioxide 28 mmol/L 24-34 46 Glucose 89 mg/dL 70-105 46 BUN 23 mg/dL 6-26 46 Creatinine 0.8 mg/dL 0.5-1.4 46 Calcium 9.2 mg/dL 8.5-10.2 46 Non Pamela Egfr >60 >60 46, 49 Pamela Egfr >60 >60 46, 50 Anion Gap 16 mmol/L 7-16 46, 51 Lipid Treatment 12/31/2016 Cholesterol 176 mg/dL 50-199 46 Triglycerides 249 mg/dL High 30-200 46 HDL 58 mg/dL 35-85 46, 52 Chol/ HDL Ratio 3.0 ratio Low 3.7-5.6 46 VLDL 50 mg/dL High 2-29 46 LDL (Calc) 68 mg/dL 20-99 46, 53 Alt 12 U/L 3-42 46 Ast 11 U/L 8-42 46 Hemoglobin A1c 12/31/2016 Hemoglobin A1c 6.7 % High 4.1-5.9 46 Estimated Average Glucose Calc 146 High 71-140 46 Laboratory test finding 12/31/2016 Magnesium 1.6 mg/dL 1.5-2.7 46 Laboratory test finding 09/28/2016 TSH 3.69 uIU/mL 0.35-4.94 54 Hemoglobin A1c 8.3 % High 4.1-5.9 54 Lipid Treatment 09/28/2016 Cholesterol 182 mg/dL 50-199 54 Triglycerides 351 mg/dL High 30-200 54 HDL 45 mg/dL 35-85 54, 55 Chol/ HDL Ratio 4.1 ratio 3.7-5.6 54 VLDL 70 mg/dL High 2-29 54 LDL (Calc) 67 mg/dL 20-99 54, 56 Alt 14 U/L 3-42 54 Ast 14 U/L 8-42 54 Laboratory test finding 09/28/2016 Vit D,25 Hydroxy 27 ng/mL Low 31-100 54 Magnesium 1.3 mg/dL Low 1.5-2.7 54 CBC With Auto Diff 09/28/2016 WBC 9.1 K/uL 4.1-11.0 54 RBC 4.27 M/uL 4.00-5.40 54 Hemoglobin 12.7 gm/dL 12.0-16.0 54 Hematocrit 37.2 % 36.0-47.0 54 MCV 87.1 fL 80.0-97.0 54 MCH 29.8 pg 27.0-32.0 54 MCHC 34.2 g/dL 32.0-36.0 54 RDW 12.9 % 11.5-14.5 54 PLT Count 208 K/ul 140-400 54 Neutrophil 62.0 % 35.0-75.0 54 Lymphocyte 26.1 % 16.0-52.0 54 Monocyte 6.2 % 2.0-10.0 54 Eosinophil 4.8 % 0.0-5.0 54 Basophil 0.9 % 0.0-4.0 54 Abs Neutrophils 5.6 K/uL 2.1-8.0 54 Abs Lymphocytes 2.4 K/uL 0.8-5.5 54 Abs Monocytes 0.6 K/uL 0.1-1.0 54 Abs Eosinophils 0.4 K/uL 0.0-0.5 54 Abs Basophils 0.1 K/uL 0.0-0.3 54 Basic (BMP) 09/28/2016 Sodium 140 mmol/L 135-146 54, 57 Potassium 4.5 mmol/L 3.5-5.2 54 Chloride# 103 mmol/L 97-110 54, 58 Carbon Dioxide 28 mmol/L 24-34 54 Glucose 181 mg/dL High 70-105 54 BUN 22 mg/dL 6-26 54 Creatinine 0.9 mg/dL 0.5-1.4 54 Calcium 9.0 mg/dL 8.5-10.2 54 Non Pamela Egfr >60 >60 54, 59 Pamela Egfr >60 >60 54, 60 Anion Gap 14 mmol/L 7-16 54, 61 CBC With Auto Diff 06/10/2016 WBC 11.0 K/uL 4.1-11.0 RBC 4.53 M/uL 4.00-5.40 Hemoglobin 13.7 gm/dL 12.0-16.0 Hematocrit 40.3 % 36.0-47.0 MCV 89.0 fL 80.0-97.0 MCH 30.2 pg 27.0-32.0 MCHC 33.9 g/dL 32.0-36.0 RDW 13.2 % 11.5-14.5 PLT Count 309 K/ul 140-400 Neutrophil 67.5 % 35.0-75.0 Lymphocyte 21.2 % 16.0-52.0 Monocyte 6.7 % 2.0-10.0 Eosinophil 4.0 % 0.0-5.0 Basophil 0.6 % 0.0-4.0 Abs Neutrophils 7.4 K/uL 2.1-8.0 Abs Lymphocytes 2.3 K/uL 0.8-5.5 Abs Monocytes 0.7 K/uL 0.1-1.0 Abs Eosinophils 0.4 K/uL 0.0-0.5 Abs Basophils 0.1 K/uL 0.0-0.3 Comprehensive Metabolic (CMP) 06/10/2016 Sodium 137 mmol/L 134-142 Potassium 4.3 mmol/L 3.5-5.2 Chloride 101 mmol/L 97-109 Carbon Dioxide 27 mmol/L 24-34 Glucose 191 mg/dL High 70-105 BUN 41 mg/dL High 6-26 Creatinine 1.1 mg/dL 0.5-1.4 Calcium 9.4 mg/dL 8.5-10.2 Total Protein 6.7 g/dL 6.0-8.0 Albumin 4.2 g/dL 3.6-4.9 Globulin 2.5 g/dL 2.0-3.5 A/G Ratio 1.7 Ratio 1.0-2.2 Total Bilirubin 0.3 mg/dL 0.1-1.3 Alkaline Phosphatase 66 U/L 24-140 Alt 16 U/L 3-42 Ast 14 U/L 8-42 Anion Gap 13 mmol/L 6-14 Pamela Egfr 57 Low >60 62 Non Pamela Egfr 47 Low >60 63 Laboratory test finding 06/10/2016 TSH 2.55 uIU/mL 0.35-4.94 CBS W/Automated Diff 05/09/2016 White Blood Count 9.3 K/uL 3.1-10.7 64 Red Blood Count 4.25 M/uL 3.90-5.40 64 Hemoglobin 12.9 gm/dL 11.6-15.8 64 Hematocrit 38.0 % 36.0-46.1 64 Mean Cell Volume 89.4 fl 80.9-99.0 64 Mean Corpuscular HGB 30.4 pg 25.9-32.7 64 Mean Corpuscular HGB Conc 33.9 g/dL 30.8-34.3 64 Platelet Count 242 K/uL 155-360 64 Red Cell Distri Width SD 42.5 fl 3-47 64 Red Cell Distri Width %CV 13.2 % 11.7-14.4 64 Mean Platelet Volume 10.6 fL 8.9-12.4 64 Neut% 60.1 % 40.4-72.8 64 Lymph % 27.5 % 17.0-46.1 64 [place] % 6.2 % 4.3-13.2 64 Eo% 5.8 % 0.0-6.6 64 Bas% 0.4 % 0.0-1.1 64 Neut# 5.59 K/uL 1.8-7.0 64 Lymph # 2.56 K/uL 1.8-7.0 64 [place] # 0.58 K/uL 0.3-0.9 64 Eos # 0.54 K/uL High 0.0-0.5 64 Baso # 0.04 K/uL 0.0-0.1 64 Comprehensive Metabolic Panel 05/09/2016 Glucose 157 mg/dL High 74-106 64 BUN 24 mg/dL High 7-18 64 Creatinine 0.8 mg/dL 0.6-1.3 64 Glom Filtration Rate, Estimate >60 mL/min >60 64 If >60 mL/min >60 64, 65 BUN/Creat 30.0 ratio 64 Sodium 141 mmol/L 136-145 64 Potassium 3.7 mmol/L 3.5-5.1 64 Chloride 106 mmol/L 98-107 64 Carbon Dioxide 25 mmol/L 21-32 64 Anion Gap 10 mEq/L 8-16 64 Calcium 8.3 mg/dL Low 8.5-10.1 64 Total Protein 6.7 g/dL 6.4-8.2 64 Albumin 3.3 g/dL Low 3.4-5.0 64 Globulin 3.4 g/dL 1.9-4.3 64 Alb/Glob 1.0 ratio 64 Bilirubin,Total 0.4 mg/dL 0.2-1.0 64 Sgot/Ast 13 U/L Low 15-37 64, 66 SGPT/Alt 18 U/L 12-78 64 Alkaline Phosphatase 72 U/L 45-117 64 Basic (BMP) 10/13/2015 Sodium 135 mmol/L 134-142 67 Potassium 4.4 mmol/L 3.5-5.2 67 Chloride 101 mmol/L 97-109 67 Carbon Dioxide 28 mmol/L 24-34 67 Glucose 148 mg/dL High 70-105 67 BUN 30 mg/dL High 6-26 67 Creatinine 0.9 mg/dL 0.5-1.4 67 Calcium 9.3 mg/dL 8.5-10.2 67 Anion Gap 10 mmol/L 6-14 67 Non Pamela Egfr 59 Low >60 67, 68 Pamela Egfr >60 >60 67, 69 Laboratory test finding 10/13/2015 Hemoglobin A1c 7.0 % High 4.1-5.9 67 CBC With Auto Diff 10/13/2015 WBC 8.9 K/uL 4.1-11.0 67 RBC 4.60 M/uL 4.00-5.40 67 Hemoglobin 13.7 gm/dL 12.0-16.0 67 Hematocrit 40.6 % 36.0-47.0 67 MCV 88.3 fL 80.0-97.0 67 MCH 29.7 pg 27.0-32.0 67 MCHC 33.6 g/dL 32.0-36.0 67 RDW 12.5 % 11.5-14.5 67 PLT Count 254 K/ul 140-400 67 Neutrophil 61.4 % 35.0-75.0 67 Lymphocyte 23.6 % 16.0-52.0 67 Monocyte 8.1 % 2.0-10.0 67 Eosinophil 6.1 % High 0.0-5.0 67 Basophil 0.8 % 0.0-4.0 67 Abs Neutrophils 5.5 K/uL 2.1-8.0 67 Abs Lymphocytes 2.1 K/uL 0.8-5.5 67 Abs Monocytes 0.7 K/uL 0.1-1.0 67 Abs Eosinophils 0.5 K/uL 0.0-0.5 67 Abs Basophils 0.1 K/uL 0.0-0.3 67 Lipid Treatment 10/13/2015 Cholesterol 183 mg/dL 50-199 67 Triglycerides 350 mg/dL High 30-200 67 HDL 41 mg/dL 35-85 67, 70 Chol/ HDL Ratio 4.5 ratio 3.7-5.6 67 VLDL 70 mg/dL High 2-29 67 LDL (Calc) 72 mg/dL 20-99 67, 71 Alt 11 U/L 3-42 67 Ast 9 U/L 8-42 67 Laboratory test finding 10/13/2015 Vit D,25 Hydroxy 33 ng/mL 31-100 67 Magnesium 1.5 mg/dL 1.5-2.7 67 Comprehensive Metabolic Panel 09/26/2015 Glucose 120 mg/dL High 74-106 BUN 20 mg/dL High 7-18 Creatinine 0.8 mg/dL 0.6-1.3 Glom Filtration Rate, Estimate >60 mL/min >60 If >60 mL/min >60 72 BUN/Creat 25.0 ratio Sodium 143 mmol/L 136-145 Potassium 4.1 mmol/L 3.5-5.1 Chloride 106 mmol/L 98-107 Carbon Dioxide 28 mmol/L 21-32 Anion Gap 9 mEq/L 8-16 Calcium 8.3 mg/dL Low 8.5-10.1 Total Protein 7.0 g/dL 6.4-8.2 Albumin 3.6 g/dL 3.4-5.0 Globulin 3.4 g/dL 1.9-4.3 Alb/Glob 1.1 ratio Bilirubin,Total 0.3 mg/dL 0.2-1.0 Sgot/Ast 12 U/L Low 15-37 73 SGPT/Alt 19 U/L 12-78 Alkaline Phosphatase 71 U/L 45-117 Laboratory test finding 09/26/2015 CK 94 U/L 26-192 Troponin-I < 0.015 ng/mL 74 CBC W/Automated Diff 09/26/2015 White Blood Count 9.4 K/uL 3.1-10.7 Red Blood Count 4.17 M/uL 3.90-5.40 Hemoglobin 12.8 gm/dL 11.6-15.8 Hematocrit 37.3 % 36.0-46.1 Mean Cell Volume 89.4 fl 80.9-99.0 Mean Corpuscular HGB 30.7 pg 25.9-32.7 Mean Corpuscular HGB Conc 34.3 g/dL 30.8-34.3 Platelet Count 208 K/uL 155-360 Red Cell Distri Width SD 41.2 fl 3-47 Red Cell Distri Width %CV 13.0 % 11.7-14.4 Mean Platelet Volume 10.3 fL 8.9-12.4 Neut% 66.5 % 40.4-72.8 Lymph % 23.3 % 17.0-46.1 [place] % 7.8 % 4.3-13.2 Eo% 2.0 % 0.0-6.6 Bas% 0.4 % 0.0-1.1 Neut# 6.27 K/uL 1.8-7.0 Lymph # 2.20 K/uL 1.8-7.0 [place] # 0.74 K/uL 0.3-0.9 Eos # 0.19 K/uL 0.0-0.5 Baso # 0.04 K/uL 0.0-0.1 Laboratory test finding 09/26/2015 NT-proBNP 729.0 pg/mL High <450 Liver Function Tests 06/10/2015 Total Protein 6.8 g/dL 6.4-8.2 75 Albumin 3.4 g/dL 3.4-5.0 75 Globulin 3.4 g/dL 1.9-4.3 75 Alb/Glob 1.0 ratio 75 Bilirubin,Total 0.6 mg/dL 0.2-1.0 75 Bilirubin,Direct 0.1 mg/dL 0.0-0.2 75 Bilirubin,Indirect 0.5 mg/dL 0.0-0.9 75 Sgot/Ast 13 U/L Low 15-37 75, 76 SGPT/Alt 19 U/L 12-78 75 Alkaline Phosphatase 75 U/L 45-117 75 Basic Metabolic Panel 06/10/2015 Glucose 143 mg/dL High 74-106 75 BUN 17 mg/dL 7-18 75 Creatinine 0.7 mg/dL 0.6-1.3 75 Glom Filtration Rate, Estimate >60 mL/min >60 75 If >60 mL/min >60 75, 77 BUN/Creat 24.2 ratio 75 Sodium 139 mmol/L 136-145 75 Potassium 4.5 mmol/L 3.5-5.1 75 Chloride 106 mmol/L 98-107 75 Carbon Dioxide 25 mmol/L 21-32 75 Anion Gap 8 mEq/L 8-16 75 Calcium 9.0 mg/dL 8.5-10.1 75 Laboratory test finding 06/10/2015 Magnesium 1.7 mg/dL Low 1.8-2.4 75 LDL Cholesterol Profile 06/10/2015 Cholesterol 184 mg/dL <200 75, 78 Triglycerides 207 mg/dL High <150 75, 79 HDL Cholesterol 56 mg/dL >40 75, 80 LDL-Cholesterol 87 mg/dL < 100 75, 81 Glycohemoglobin A1c 06/10/2015 Glycohemoglobin (A1c) 7.3 % High 4.2-6.3 75, 82 eAG 163 mg/dL 75 Laboratory test 06/10/2015 Vitamin D,25-Hydroxy 22.3 ng/mL Low 30.0-100.0 75, 83 finding CBC With Auto Diff 05/15/2015 WBC 11.3 K/uL High 4.1-11.0 RBC 4.71 M/uL 4.00-5.40 Hemoglobin 13.9 gm/dL 12.0-16.0 Hematocrit 41.6 % 36.0-47.0 MCV 88.3 fL 80.0-97.0 MCH 29.5 pg 27.0-32.0 MCHC 33.4 g/dL 32.0-36.0 RDW 12.7 % 11.5-14.5 PLT Count 267 K/ul 140-400 Neutrophil 71.8 % 35.0-75.0 Lymphocyte 19.8 % 16.0-52.0 Monocyte 5.4 % 2.0-10.0 Eosinophil 2.3 % 0.0-5.0 Basophil 0.7 % 0.0-4.0 Abs Neutrophils 8.1 K/uL High 2.1-8.0 Abs Lymphocytes 2.2 K/uL 0.8-5.5 Abmon 0.6 K/uL 0.1-1.0 Abs Eosinophils 0.3 K/uL 0.0-0.5 Abs Basophils 0.1 K/uL 0.0-0.3 Basic ([facility]) 05/15/2015 Sodium 141 mmol/L 134-142 Potassium 5.2 mmol/L 3.5-5.2 Chloride 103 mmol/L 97-109 Carbon Dioxide 31 mmol/L 24-34 Glucose 113 mg/dL High 70-105 BUN 23 mg/dL 6-26 Creatinine 0.7 mg/dL 0.5-1.4 Calcium 9.4 mg/dL 8.5-10.2 Anion Gap 12 mmol/L 6-14 Non Pamela Egfr >60 >60 84 Pamela Egfr >60 >60 85 Basic ([facility]) 02/12/2015 Sodium 140 mmol/L 134-142 86 Potassium 4.5 mmol/L 3.5-5.2 86 Chloride 104 mmol/L 97-109 86 Carbon Dioxide 27 mmol/L 24-34 86 Glucose 136 mg/dL High 70-105 86 BUN 19 mg/dL 6-26 86 Creatinine 0.7 mg/dL 0.5-1.4 86 Calcium 9.0 mg/dL 8.5-10.2 86 Anion Gap 14 mmol/L 6-14 86 Non Pamela Egfr >60 >60 86, 87 Pamela Egfr >60 >60 86, 88 Laboratory test finding 02/12/2015 Hemoglobin A1c 6.6 % High 4.1-5.9 86 Lipid Treatment 02/12/2015 Cholesterol 175 mg/dL 50-199 86 Triglycerides 231 mg/dL High 30-200 86 HDL 40 mg/dL 35-85 86, 89 Chol/ HDL Ratio 4.4 ratio 3.7-5.6 86 VLDL 46 mg/dL High 2-29 86 LDL (Calc) 89 mg/dL 20-99 86, 90 Alt 11 U/L 3-42 86 Ast 10 U/L 8-42 86 Laboratory test finding 02/12/2015 Magnesium 1.5 mg/dL 1.5-2.7 86 Laboratory test finding 11/12/2014 Hemoglobin A1c 13.0 % High 4.1-5.9 91 Magnesium 1.4 mg/dL Low 1.5-2.7 91 Vit D,25 Hydroxy 29 ng/mL Low 31-100 91 TSH 3.91 uIU/mL 0.35-4.94 91 Lipid Treatment 11/12/2014 Cholesterol 190 mg/dL 50-199 91 Triglycerides 367 mg/dL High 30-200 91 HDL 42 mg/dL 35-85 91, 92 Chol/ HDL Ratio 4.5 ratio 3.7-5.6 91 VLDL 73 mg/dL High 2-29 91 LDL (Calc) 75 mg/dL 20-99 91, 93 Alt 9 U/L 3-42 91 Ast 10 U/L 8-42 91 Basic (BMP) 11/12/2014 Sodium 134 mmol/L 134-142 91 Potassium 4.4 mmol/L 3.5-5.2 91 Chloride 97 mmol/L 97-109 91 Carbon Dioxide 30 mmol/L 24-34 91 Glucose 245 mg/dL High 70-105 91 BUN 18 mg/dL 6-26 91 Creatinine 0.8 mg/dL 0.5-1.4 91 Calcium 9.5 mg/dL 8.5-10.2 91 Anion Gap 11 mmol/L 6-14 91 Non Pamela Egfr >60 >60 91, 94 Pamela Egfr >60 >60 91, 95 CBS W/Automated Diff 06/17/2014 Baso # 0.01 K/uL 0.0-0.1 Eos # 0.00 K/uL 0.0-0.5 Hematocrit 35.2 % Low 36.0-46.1 Hemoglobin 11.8 gm/dL 11.6-15.8 Lymph # 0.58 K/uL Low 0.8-3.4 Mean Cell Volume 90.3 fl 80.9-99.0 Mean Corpuscular HGB 30.3 pg 25.9-32.7 Mean Corpuscular HGB Conc 33.5 g/dL 30.8-34.3 Mean Platelet Volume 10.5 fL 8.9-12.4 [place] # 0.42 K/uL 0.3-0.9 Neut# 10.57 K/uL High 1.0-7.0 Platelet Count 301 K/uL 155-360 Red Blood Count 3.90 M/uL 3.90-5.40 Red Cell Distri Width %CV 13.0 % 11.7-14.4 Red Cell Distri Width SD 41.6 fl 3-47 White Blood Count 11.6 K/uL High 3.1-10.7 Laboratory test finding 06/17/2014 Alb/Glob 0.9 ratio Albumin 3.1 g/dL Low 3.4-5.0 Alkaline Phosphatase 93 U/L 45-117 Anion Gap 12 mEq/L 8-16 BUN 19 mg/dL High 7-18 BUN/Creat 19.0 ratio Band% 4 % 0-8 Bilirubin,Total 0.3 mg/dL 0.2-1.0 Calcium 8.6 mg/dL 8.5-10.1 Carbon Dioxide 24 mmol/L 21-32 Chloride 102 mmol/L 98-107 Creatinine 1.0 mg/dL 0.6-1.3 Globulin 3.6 g/dL 1.9-4.3 Glom Filtration Rate, Estimate 57 mL/min >60 Glucose 290 mg/dL High 74-106 If >60 mL/min >60 96 Lymph% 7 % Low 17-56 Monocyte% 3 % 0-10 Neutrophils% 86 % High 33-73 Platelet Estimate Normal Potassium 4.2 mmol/L 3.5-5.1 RBC Morphology Normal SGPT/Alt 25 U/L 12-78 Sgot/Ast 11 U/L Low 15-37 97 Sodium 134 mmol/L Low 136-145 Total Cells Counted 100 #CELLS Total Protein 6.7 g/dL 6.4-8.2 Laboratory test finding 06/03/2014 Ceruloplasmin 27.4 mg/dL 16.0-45.0 Copper, Serum 113 g/dL 72-166 98 Folic Acid 18.5 ng/mL High 3.1-17.5 99 Methylmalonic Acid (S) 207 nmol/L 0-378 100 Vitamin B12 569.0 pg/mL 200.0-900.0 Lipid Panel 05/08/2014 Chol/HDL Ratio 3.1 ratio Cholesterol 179.0 mg/dL 50.0-199.0 HDL 58.0 mg/dL 29.0-86.0 LDL, Calculated 74.4 mg/dL 20.0-129.0 Triglycerides 233.0 mg/dL 30.0-249.0 vLDL 46.6 ng/dL Laboratory test finding 05/08/2014 % A1c 6.4 % 4.1-6.5 Alt 21.0 U/L 9.0-52.0 Ast 17.0 U/L 14.0-36.0 BUN 19.0 mg/dL High 7.0-18.0 BUN/Creat Ratio 27.1 ratio High 12.0-20.0 Calcium 9.0 mg/dL 8.7-10.5 Chloride 104.0 mmol/L 98.0-107.0 Co2 25.0 mmol/L 22.0-30.0 Creatinine-Serum 0.7 mg/dL 0.7-1.2 Glucose 105.0 mg/dL 75.0-110.0 Magnesium 1.5 Low 1.7-2.3 Potasium 4.4 mmol/L 3.6-5.0 Sodium 138.0 mmil/L 137.0-145.0 eGFR 86.5 Laboratory test finding 01/08/2014 Culture Urine See Note 101, 102 Lipid Panel 01/02/2014 Chol/HDL Ratio 3.2 ratio Cholesterol 187.0 mg/dL 50.0-199.0 HDL 58.0 mg/dL 29.0-86.0 LDL, Calculated 85.0 mg/dL 20.0-129.0 Triglycerides 220.0 mg/dL 30.0-249.0 vLDL 44.0 ng/dL Laboratory test finding 01/02/2014 % A1c 6.9 % High 4.1-6.5 Alt 13.0 U/L 9.0-52.0 Ast 12.0 U/L Low 14.0-36.0 BUN 13.0 mg/dL 7.0-18.0 BUN/Creat Ratio 18.6 ratio 12.0-20.0 Calcium 9.1 mg/dL 8.7-10.5 Chloride 105.0 mmol/L 98.0-107.0 Co2 27.0 mmol/L 22.0-30.0 Creatinine-Serum 0.7 mg/dL 0.7-1.2 Glucose 136.0 mg/dL High 75.0-110.0 Magnesium 1.5 Low 1.7-2.3 Potasium 4.7 mmol/L 3.6-5.0 Sodium 140.0 mmil/L 137.0-145.0 Vitamin D 28.5 ng/mL Low 30.0-100.0 eGFR 86.7 Laboratory test finding 07/31/2013 Afb Concentrate Smear See Note 103 Afb Culture See Note 104 Afb Smear And Culture See Note 105 Fungal Culture; Other Sources See Note 106 Fungal Fluorochrome Stain See Note 107 Laboratory test finding 07/31/2013 % A1c 7.5 % High 4.1-6.5 BUN 24.0 mg/dL High 7.0-18.0 BUN/Creat Ratio 30.0 ratio High 12.0-20.0 Calcium 9.3 mg/dL 8.7-10.5 Chloride 104.0 mmol/L 98.0-107.0 Co2 26.0 mmol/L 22.0-30.0 Creatinine-Serum 0.8 mg/dL 0.7-1.2 Glucose 121.0 mg/dL High 75.0-110.0 Magnesium 1.5 1.7-2.3 Potasium 4.3 mmol/L 3.6-5.0 Sodium 139.0 mmil/L 137.0-145.0 eGFR 74.3 1 [id number] J30.89 J45.30 G47.30 2 PLEASE FAX RESULTS TO [phone] PLEASE FAX RESULTS TO [phone] PLEASE FAX RESULTS TO [phone] PLEASE FAX RESULTS TO [phone] 6 PLEASE FAX RESULTS TO [phone] INFCE Result Units: %mean normal Abnormal <41 Equivocal 41 - 67 Normal >67 8 PLEASE FAX RESULTS TO [phone] Levels of Specific IgE Class Description of Class ----- < 0.10 0 Negative 0.10 - 0.31 0/I Equivocal/Low 0.32 - 0.55 I Low 0.56 - 1.40 II Moderate 1.41 - 3.90 III High 3.91 - 19.00 IV Very High 19.01 - 100.00 V Very High >100.00 Very High 10 Test(s) [id number] [employer] were developed and had performance characteristics determined by [employer]. These tests have not been cleared or approved by the [place]. Food and Drug Administration. The FDA has determined that such clearance or approval is not necessary. These tests are used for clinical purposes. These should not be regarded as investigational or for research. 11 PLEASE FAX RESULTS TO [phone] 12 PLEASE FAX RESULTS TO [phone] 13 PLEASE FAX RESULTS TO [phone] 14 PLEASE FAX RESULTS TO [phone] 15 PLEASE FAX RESULTS TO [phone] 16 Performed at: - [facility] [address] [id number] Journalism Professor: Lindsey Lopez MD, Phone: [phone] Performed at: - [facility] [address] [id number] Journalism Professor: Benjamin Holbrook MD, Phone: [phone] 17 10/12 preOV 18 Updated reference range on new analyzer 19 Updated reference range on new analyzer 20 Concerning GFR Guidelines: Normal function or mild renal disease, if clinically at risk: >/=60 mL/min Moderately decreased: 30-59 Severely decreased: 15-29 Renal failure: <15 Glomerular Filtration Rate (GFR) is estimated based on the MDRD equation, which assumes a steady state for creatinine as recommended by the National Kidney Disease Education Program in conjunction with the National Institutes of Health and the National Kidney Foundation. Clinical conditions in which it may be necessary to measure GFR by using clearance methods include extremes of age and body size, severe malnutrition or obesity, diseases of skeletal muscle, paraplegia or quadriplegia, vegetarian diet, rapidly changing kidney function, and calculation of the dose of potentially toxic drugs that are excreted by the kidneys. 21 Concerning GFR Guidelines for Americans: Normal function or mild renal disease, if clinically at risk: >/=60 mL/min Moderately decreased: 30-59 Severely decreased: 15-29 Renal failure: <15 22 Updated Reference Range 23 Per NCEP ATP III Guidelines: Results lower than 40 mg/dL are suggestive of increased risk for coronary artery disease. Results > or=to 60 mg/dL are considered a negative risk factor. 24 Per NCEP ATP III Guidelines: Normal Population <130 Patients with medical conditions: CHD/DM Optimal: <100 Borderline high: 130-159 High: 160-189 Very high: >189 25 labs today results to Dr Juarez 26 Updated reference range on new analyzer 27 Updated reference range on new analyzer 28 Concerning GFR Guidelines for Americans: Normal function or mild renal disease, if clinically at risk: >/=60 mL/min Moderately decreased: 30-59 Severely decreased: 15-29 Renal failure: <15 29 Concerning GFR Guidelines: Normal function or mild renal disease, if clinically at risk: >/=60 mL/min Moderately decreased: 30-59 Severely decreased: 15-29 Renal failure: <15 Glomerular Filtration Rate (GFR) is estimated based on the MDRD equation, which assumes a steady state for creatinine as recommended by the National Kidney Disease Education Program in conjunction with the National Institutes of Health and the National Kidney Foundation. Clinical conditions in which it may be necessary to measure GFR by using clearance methods include extremes of age and body size, severe malnutrition or obesity, diseases of skeletal muscle, paraplegia or quadriplegia, vegetarian diet, rapidly changing kidney function, and calculation of the dose of potentially toxic drugs that are excreted by the kidneys. 30 Updated reference range on new analyzer 31 TROPONIN LEVELS TWO TIMES THE UPPER LIMIT OF NORMAL ARE MORE PREDICTIVE OF MYOCARDIAL INJURY THAN LESSER ELEVATIONS. ([facility] 361:9, 2009) Unless otherwise specified, testing performed by [facility] [place] [address] 32 05/13 preOV 33 Updated reference range on new analyzer 34 Updated reference range on new analyzer 35 Concerning GFR Guidelines: Normal function or mild renal disease, if clinically at risk: >/=60 mL/min Moderately decreased: 30-59 Severely decreased: 15-29 Renal failure: <15 Glomerular Filtration Rate (GFR) is estimated based on the MDRD equation, which assumes a steady state for creatinine as recommended by the National Kidney Disease Education Program in conjunction with the National Institutes of Health and the National Kidney Foundation. Clinical conditions in which it may be necessary to measure GFR by using clearance methods include extremes of age and body size, severe malnutrition or obesity, diseases of skeletal muscle, paraplegia or quadriplegia, vegetarian diet, rapidly changing kidney function, and calculation of the dose of potentially toxic drugs that are excreted by the kidneys. 36 Concerning GFR Guidelines for Americans: Normal function or mild renal disease, if clinically at risk: >/=60 mL/min Moderately decreased: 30-59 Severely decreased: 15-29 Renal failure: <15 37 Updated reference range on new analyzer 38 Per NCEP ATP III Guidelines: Results lower than 40 mg/dL are suggestive of increased risk for coronary artery disease. Results > or=to 60 mg/dL are considered a negative risk factor. 39 Per NCEP ATP III Guidelines: Normal Population <130 Patients with medical conditions: CHD/DM Optimal: <100 Borderline high: 130-159 High: 160-189 Very high: >189 40 BACK PAIN 41 Note: Persistent reduction for 3 months or more in an eGFR <60 mL/min/1.73 m2 defines CKD. Patients with eGFR values >/=60 mL/min/1.73 m2 may also have CKD if evidence of persistent proteinuria is present. The original MDRD equation for estimated GFR is not valid for patients less than 18 years of age. Additional information may be found at www.kdoqi.org. 42 Values below the stated reference ranges of AST and ALT can be seen in normal populations. Clinical correlation is suggested. 43 0.0 - 0.045 ng/mL: Normal 0.046 - 0.5 ng/mL: Suggestive 0.6 - 1.5 ng/mL: Consistent 44 02/27/17 0441: NEUT% previously reported as: 76.6 H % Amended result called to: [] - 02/27/17 at 0441 02/27/17 0441: LYMPH % previously reported as: 13.6 L % Amended result called to: [] - 02/27/17 at 0441 02/27/17 0441: MONO % previously reported as: 9.0 % Amended result called to: [] - 02/27/17 at 0441 02/27/17 0441: EO% previously reported as: 0.7 % Amended result called to: [] - 02/27/17 at 0441 02/27/17 0441: BAS% previously reported as: 0.1 % Amended result called to: [] - 02/27/17 at 0441 45 A Negative serologic test for Lyme Disease indicates no serologic evidence of infection with B burgdorferi at the time this specimen was collected. A repeat specimen should be collected in 2 to 4 weeks if clinically indicated. Unless otherwise specified, testing performed by [facility] [address] [place] [id number] 46 01/10 preOV 47 Updated reference range on new analyzer 48 Updated reference range on new analyzer 49 Concerning GFR Guidelines: Normal function or mild renal disease, if clinically at risk: >/=60 mL/min Moderately decreased: 30-59 Severely decreased: 15-29 Renal failure: <15 Glomerular Filtration Rate (GFR) is estimated based on the MDRD equation, which assumes a steady state for creatinine as recommended by the National Kidney Disease Education Program in conjunction with the National Institutes of Health and the National Kidney Foundation. Clinical conditions in which it may be necessary to measure GFR by using clearance methods include extremes of age and body size, severe malnutrition or obesity, diseases of skeletal muscle, paraplegia or quadriplegia, vegetarian diet, rapidly changing kidney function, and calculation of the dose of potentially toxic drugs that are excreted by the kidneys. 50 Concerning GFR Guidelines for Americans: Normal function or mild renal disease, if clinically at risk: >/=60 mL/min Moderately decreased: 30-59 Severely decreased: 15-29 Renal failure: <15 51 Updated reference range on new analyzer 52 Per NCEP ATP III Guidelines: Results lower than 40 mg/dL are suggestive of increased risk for coronary artery disease. Results > or=to 60 mg/dL are considered a negative risk factor. 53 Per NCEP ATP III Guidelines: Normal Population <130 Patients with medical conditions: CHD/DM Optimal: <100 Borderline high: 130-159 High: 160-189 Very high: >189 spring preOV 55 Per NCEP ATP III Guidelines: Results lower than 40 mg/dL are suggestive of increased risk for coronary artery disease. Results > or=to 60 mg/dL are considered a negative risk factor. 56 Per NCEP ATP III Guidelines: Normal Population <130 Patients with medical conditions: CHD/DM Optimal: <100 Borderline high: 130-159 High: 160-189 Very high: >189 57 Updated reference range on new analyzer 58 Updated reference range on new analyzer 59 Concerning GFR Guidelines: Normal function or mild renal disease, if clinically at risk: >/=60 mL/min Moderately decreased: 30-59 Severely decreased: 15-29 Renal failure: <15 Glomerular Filtration Rate (GFR) is estimated based on the MDRD equation, which assumes a steady state for creatinine as recommended by the National Kidney Disease Education Program in conjunction with the National Institutes of Health and the National Kidney Foundation. Clinical conditions in which it may be necessary to measure GFR by using clearance methods include extremes of age and body size, severe malnutrition or obesity, diseases of skeletal muscle, paraplegia or quadriplegia, vegetarian diet, rapidly changing kidney function, and calculation of the dose of potentially toxic drugs that are excreted by the kidneys. 60 Concerning GFR Guidelines for Americans: Normal function or mild renal disease, if clinically at risk: >/=60 mL/min Moderately decreased: 30-59 Severely decreased: 15-29 Renal failure: <15 61 Updated reference range on new analyzer 62 Concerning GFR Guidelines for Americans: Normal function or mild renal disease, if clinically at risk: >/=60 mL/min Moderately decreased: 30-59 Severely decreased: 15-29 Renal failure: <15 63 Concerning GFR Guidelines: Normal function or mild renal disease, if clinically at risk: >/=60 mL/min Moderately decreased: 30-59 Severely decreased: 15-29 Renal failure: <15 Glomerular Filtration Rate (GFR) is estimated based on the MDRD equation, which assumes a steady state for creatinine as recommended by the National Kidney Disease Education Program in conjunction with the National Institutes of Health and the National Kidney Foundation. Clinical conditions in which it may be necessary to measure GFR by using clearance methods include extremes of age and body size, severe malnutrition or obesity, diseases of skeletal muscle, paraplegia or quadriplegia, vegetarian diet, rapidly changing kidney function, and calculation of the dose of potentially toxic drugs that are excreted by the kidneys. 64 ALLERGIC REACTION, FACIAL SWELLING 65 Note: Persistent reduction for 3 months or more in an eGFR <60 mL/min/1.73 m2 defines CKD. Patients with eGFR values >/=60 mL/min/1.73 m2 may also have CKD if evidence of persistent proteinuria is present. The original MDRD equation for estimated GFR is not valid for patients less than 18 years of age. Additional information may be found at www.kdoqi.org. 66 Values below the stated reference ranges of AST and ALT can be seen in normal populations. Clinical correlation is suggested. 67 late 10/10 preOC 68 Concerning GFR Guidelines: Normal function or mild renal disease, if clinically at risk: >/=60 mL/min Moderately decreased: 30-59 Severely decreased: 15-29 Renal failure: <15 Glomerular Filtration Rate (GFR) is estimated based on the MDRD equation, which assumes a steady state for creatinine as recommended by the National Kidney Disease Education Program in conjunction with the National Institutes of Health and the National Kidney Foundation. Clinical conditions in which it may be necessary to measure GFR by using clearance methods include extremes of age and body size, severe malnutrition or obesity, diseases of skeletal muscle, paraplegia or quadriplegia, vegetarian diet, rapidly changing kidney function, and calculation of the dose of potentially toxic drugs that are excreted by the kidneys. 69 Concerning GFR Guidelines for Americans: Normal function or mild renal disease, if clinically at risk: >/=60 mL/min Moderately decreased: 30-59 Severely decreased: 15-29 Renal failure: <15 70 Per NCEP ATP III Guidelines: Results lower than 40 mg/dL are suggestive of increased risk for coronary artery disease. Results > or=to 60 mg/dL are considered a negative risk factor. 71 Per NCEP ATP III Guidelines: Normal Population <130 Patients with medical conditions: CHD/DM Optimal: <100 Borderline high: 130-159 High: 160-189 Very high: >189 72 Note: Persistent reduction for 3 months or more in an eGFR <60 mL/min/1.73 m2 defines CKD. Patients with eGFR values >/=60 mL/min/1.73 m2 may also have CKD if evidence of persistent proteinuria is present. The original MDRD equation for estimated GFR is not valid for patients less than 18 years of age. Additional information may be found at www.kdoqi.org. 73 Values below the stated reference ranges of AST and ALT can be seen in normal populations. Clinical correlation is suggested. 74 0.0 - 0.045 ng/mL: Normal 0.046 - 0.5 ng/mL: Suggestive 0.6 - 1.5 ng/mL: Consistent 75 HAS 06/16 76 Values below the stated reference ranges of AST and ALT can be seen in normal populations. Clinical correlation is suggested. 77 Note: Persistent reduction for 3 months or more in an eGFR <60 mL/min/1.73 m2 defines CKD. Patients with eGFR values >/=60 mL/min/1.73 m2 may also have CKD if evidence of persistent proteinuria is present. The original MDRD equation for estimated GFR is not valid for patients less than 18 years of age. Additional information may be found at www.kdoqi.org. 78 Reference Guidelines*: Desirable: ........... < 200 mg/dL Borderline High: ..... 200-239 mg/dL High: ................ >=240 mg/dL * The National Cholesterol Education Program (NCEP) 79 Reference Guidelines*: Normal: ............. < 150 mg/dL Borderline High: .... 150-199 mg/dL High: ............... 200-499 mg/dL Very High: .......... > 500 mg/dL * Source: National Cholesterol Education Program (NCEP) 80 Reference Guidelines*: Low HDL: ..... < 40 mg/dL Normal: ..... 40-60 mg/dL Desirable: ... > 60 mg/dL *The National Cholesterol Education Program(NCEP) 81 Reference Guidelines*: Optimal:........... <100 mg/dL Near Optimal....... 100-129 mg/dL Borderline High.... 130-159 mg/dL High............... 160-189 mg/dL Very High.......... >=190 mg/dL * Source: National Cholesterol Education Program (NCEP) 82 Elevated levels of HbA1c suggest the need for more aggressive treatment of glycemia. The [place] Diabetes Association recommends that a primary goal of therapy should be a HbA1c of <7% and that physicians should re-evaluate the treatment regimen in patients with HbA1c values consistently >8%. 83 Vitamin D deficiency has been defined by the [place] [employer] and an Endocrine Society practice guideline as a level of serum 25-OH vitamin D less than 20 ng/mL (1,2). The Endocrine Society went on to further define vitamin D insufficiency as a level between 21 and 29 ng/mL (2). 1. IOM ([place] [employer]). 2010. Dietary reference intakes for calcium and D. [place]: The National Academies Press. 2. Maddy MF, Bjorn NC, Nancy LAM, et al. Evaluation, treatment, and prevention of vitamin D deficiency: an Endocrine Society clinical practice guideline. JCEM. 2010; 96(7):1911-30. Performed at: RN - [facility] [address] [id number] Journalism Professor: Lindsey Lopez MD, Phone: [phone] 84 Concerning GFR Guidelines: Normal function or mild renal disease, if clinically at risk: >/=60 mL/min Moderately decreased: 30-59 Severely decreased: 15-29 Renal failure: <15 Glomerular Filtration Rate (GFR) is estimated based on the MDRD equation, which assumes a steady state for creatinine as recommended by the National Kidney Disease Education Program in conjunction with the National Institutes of Health and the National Kidney Foundation. Clinical conditions in which it may be necessary to measure GFR by using clearance methods include extremes of age and body size, severe malnutrition or obesity, diseases of skeletal muscle, paraplegia or quadriplegia, vegetarian diet, rapidly changing kidney function, and calculation of the dose of potentially toxic drugs that are excreted by the kidneys. 85 Concerning GFR Guidelines for Americans: Normal function or mild renal disease, if clinically at risk: >/=60 mL/min Moderately decreased: 30-59 Severely decreased: 15-29 Renal failure: <15 86 02/08 preOV 87 Concerning GFR Guidelines: Normal function or mild renal disease, if clinically at risk: >/=60 mL/min Moderately decreased: 30-59 Severely decreased: 15-29 Renal failure: <15 Glomerular Filtration Rate (GFR) is estimated based on the MDRD equation, which assumes a steady state for creatinine as recommended by the National Kidney Disease Education Program in conjunction with the National Institutes of Health and the National Kidney Foundation. Clinical conditions in which it may be necessary to measure GFR by using clearance methods include extremes of age and body size, severe malnutrition or obesity, diseases of skeletal muscle, paraplegia or quadriplegia, vegetarian diet, rapidly changing kidney function, and calculation of the dose of potentially toxic drugs that are excreted by the kidneys. 88 Concerning GFR Guidelines for Americans: Normal function or mild renal disease, if clinically at risk: >/=60 mL/min Moderately decreased: 30-59 Severely decreased: 15-29 Renal failure: <15 89 Per NCEP ATP III Guidelines: Results lower than 40 mg/dL are suggestive of increased risk for coronary artery disease. Results > or=to 60 mg/dL are considered a negative risk factor. 90 Per NCEP ATP III Guidelines: Normal Population <130 Patients with medical conditions: CHD/DM Optimal: <100 Borderline high: 130-159 High: 160-189 Very high: >189 91 preOV 11/08 92 Per NCEP ATP III Guidelines: Results lower than 40 mg/dL are suggestive of increased risk for coronary artery disease. Results > or=to 60 mg/dL are considered a negative risk factor. 93 Per NCEP ATP III Guidelines: Normal Population <130 Patients with medical conditions: CHD/DM Optimal: <100 Borderline high: 130-159 High: 160-189 Very high: >189 94 Concerning GFR Guidelines: Normal function or mild renal disease, if clinically at risk: >/=60 mL/min Moderately decreased: 30-59 Severely decreased: 15-29 Renal failure: <15 Glomerular Filtration Rate (GFR) is estimated based on the MDRD equation, which assumes a steady state for creatinine as recommended by the National Kidney Disease Education Program in conjunction with the National Institutes of Health and the National Kidney Foundation. Clinical conditions in which it may be necessary to measure GFR by using clearance methods include extremes of age and body size, severe malnutrition or obesity, diseases of skeletal muscle, paraplegia or quadriplegia, vegetarian diet, rapidly changing kidney function, and calculation of the dose of potentially toxic drugs that are excreted by the kidneys. 95 Concerning GFR Guidelines for Americans: Normal function or mild renal disease, if clinically at risk: >/=60 mL/min Moderately decreased: 30-59 Severely decreased: 15-29 Renal failure: <15 96 Note: Persistent reduction for 3 months or more in an eGFR <60 mL/min/1.73 m2 defines CKD. Patients with eGFR values >/=60 mL/min/1.73 m2 may also have CKD if evidence of persistent proteinuria is present. The original MDRD equation for estimated GFR is not valid for patients less than 18 years of age. Additional information may be found at www.kdoqi.org. 97 Values below the stated reference ranges of AST and ALT can be seen in normal populations. Clinical correlation is suggested. 98 Detection Limit=5 Performed at: [facility] [address] [id number] Journalism Professor: Lindsey Lopez MD, Phone: [phone] Performed at: [facility] [id number] Journalism Professor: Benjamin Holbrook MD, Phone: [phone] QUERY: Is the Patient Fasting? Y 100 Please note reference interval change Performed at: [facility] [id number] Journalism Professor: Benjamin Holbrook MD, Phone: [phone] no rx needed 102 COLONY COUNT ! >100,000 CFU/ml Organism 1 ! MIXED URETHRAL TATIANA 103 NO ACID FAST BACILLI OBSERVED ON SMEAR 104 REFERENCE LAB#:[id number] No acid-fast bacilli isolated after 6 weeks. 105 07/31/13 LAB.[facility] ORDER # 1 PER MICRO 106 REFERENCE LAB#:[id number] Result 1 Paecilomyces species Scant growth Result 2 Cleo albicans Moderate growth Performed at: - [facility] [id number] Journalism Professor: Lindsey Lopez MD, Phone: [phone] 107 NO YEAST OR MOLD OBSERVED ON SMEAR Procedures Date CPT Code Description Status Comment 12/26/2017 06864 Measure Blood Oxygen Level Completed Single Determination 06/22/2017 24161 Measure Blood Oxygen Level Completed Single Determination 06/22/2017 81897 Electrocardiogram Complete Completed 05/13/2017 36518 Measure Blood Oxygen Level Completed Single Determination 01/18/2017 28532 Measure Blood Oxygen Level Completed Single Determination 2017 Colonoscopy Completed (10/2006) 10/31: DR DENSON - HP RECTAL POLYP,REDO 10 YEARS 01/10: DR DENSON - MILD TICS, IH, BX NEG Path: Colon BX, - Colonoscopy 11/26/2016 77795 Measure Blood Oxygen Level Completed Single Determination 11/15/2016 Mammogram Completed 12/08: NORMAL 01/08: NORMAL - Mammogram 11/10:NORMAL Mammogram 09/27/2016 90241 X-Ray Chest Two Views Frontal & Completed Lateral 06/10/2016 92187 Measure Blood Oxygen Level Completed Single Determination 06/10/2016 52610 X-Ray Chest Two Views Frontal & Completed Lateral 04/22/2016 40210 Remove Impacted Cerumen Completed Requiring Instrumentation 04/08/2016 01326 Measure Blood Oxygen Level Completed Single Determination 10/15/2015 38183 Measure Blood Oxygen Level Completed Single Determination 10/02/2015 39184 Measure Blood Oxygen Level Completed Single Determination 05/15/2015 68788 Measure Blood Oxygen Level Completed Single Determination 05/06/2015 34464 Measure Blood Oxygen Level Completed Single Determination 04/18/2015 39121 Measure Blood Oxygen Level Completed Single Determination 04/18/2015 59045 Destruction Lesion/Any Method Completed Premalignant Lesions 03/11/2015 97815 Remove Impacted Cerumen Completed Requiring Instrumentation 02/19/2015 69902 Screening Hearing Test Completed 01/01/2015 Mammogram Completed 07/19/2014 70228 Measure Blood Oxygen Level Completed Single Determination 12/10/2013 48171 Mammography Unilateral Completed 02/07/2013 23561 Spirometry /PFT W/O Completed Bronchodialator 06/16/2009 99764 Electrocardiogram Complete Completed Encounters Type Date Location Provider CPT E/M Dx Office Visit 10/13/2017 10:30a [facility] [place] [place] [address] I10 E78.2 E11.9 E83.40 E55.9 M15.9 R32 J30.9 F33.0 E21.0 G47.33 G25.0 K21.9 T78.3xxD Z68.36 Office Visit 06/22/2017 1:45p [facility] [place] [address] T78.00xA L50.0 R07.2 Office Visit 05/13/2017 11:30a [facility] [place] [address] J01.90 H26.9 I10 E78.2 E11.9 G47.33 E55.9 E83.42 M15.9 K58.9 M47.817 G25.0 K21.9 Z79.890 Office Visit 04/19/2017 11:00a [facility] [place] [address] H26.9 Z01.810 I10 E78.2 E11.9 K58.9 G47.33 K21.9 Office Visit 03/28/2017 2:30p [facility] Sinan Juarez MD G0439 Z00.00 E66.9 Office Visit 01/27/2017 10:30a [facility] [place] [place] [address] R21 Office Visit 01/18/2017 11:15a [facility] [place] [place] [address] R60.0 Z91.018 Office Visit 01/04/2017 3:00p [facility] [place] [address] R10.9 I10 E78.2 E11.9 G47.33 E55.9 E83.42 G25.0 M47.817 T78.3xxD K21.9 Z79.890 F33.0 Office Visit 12/17/2016 9:45a [facility] Francadarrick Mia, JOEY [address] R19.7 Office Visit 11/26/2016 9:30a [facility] [place] [address] J06.9 Office Visit 11/15/2016 9:45a [facility] [place] [address] N64.4 B37.2 Office Visit 10/05/2016 9:00a [facility] [place] [address] I10 E78.2 E11.9 G47.33 E55.9 T78.3xxD E83.40 M47.817 G25.0 J20.9 F33.0 Office Visit 09/27/2016 1:00p [facility] [place] [address] R05 J01.00 Office Visit 06/14/2016 11:15a [facility] [place] [place] [address] K13.79 Office Visit 06/10/2016 1:00p [facility] [place] [address] R61 R05 Office Visit 05/12/2016 2:30p [facility] [place] [place] [address] T78.3xxD Office Visit 04/29/2016 1:00p [facility] [place] [place] [address] T78.3xxD Office Visit 04/22/2016 11:15a [facility] [place] [address] I10 H91.93 H61.21 Office Visit 04/08/2016 1:45p [facility] [place] [address] I10 T78.3xxD Office Visit 03/24/2016 10:45a [facility] Sinan Juarez MD G0438 T78.3xxD I10 Z00.00 Z68.37 G25.0 F33.0 Office Visit 03/10/2016 4:15p [facility] [place] [address] T78.3xxD R19.7 I10 E11.9 E78.2 G47.33 E55.9 E83.42 K21.9 F32.9 Z79.890 J45.40 Office Visit 02/11/2016 9:45a [facility] [place] [address] T78.3xxA M65.341 Office Visit 12/22/2015 11:00a [facility] [place] [address] S50.12xA Office Visit 11/04/2015 1:00p [place] [address] I10 G47.33 I42.2 E55.9 E83.42 K21.9 R32 E78.2 M47.817 R25.1 Office Visit 10/15/2015 9:45a [facility] [place] [address] R53.83 M79.606 R07.89 Office Visit 10/02/2015 10:00a [place] [address] J20.9 I10 Office Visit 06/16/2015 10:45a [place] [address] E11.9 I10 G47.33 E78.0 K21.9 G25.0 E55.9 R32 E83.42 Office Visit 05/15/2015 9:00a [facility] [place] [address] J32.9 E11.9 Office Visit 05/06/2015 2:45p Mia Bullock, JOEY 28099 R06.2 B02.9 Office Visit 04/30/2015 4:00p [place] [address] B02.9 Office Visit 04/23/2015 11:15a [place] [address] J01.90 J20.9 Office Visit 04/18/2015 11:15a [place] [address] J20.9 L57.0 Office Visit 02/19/2015 9:30[place] [address] 250.00 272.2 401.1 530.81 275.2 268.9 715.00 311 327.23 333.1 V07.4 389.9 V03.82 788.30 Office Visit 12/20/2014 10:30a Sinan Bullock [place] [id number] 250.02 847.2 Office Visit 12/10/2014 4:00p [place] [id number] 847.2 Office Visit 11/19/2014 11:30a [facility] [place] [id number] 250.00 250.02 401.1 272.2 275.2 715.00 799.02 530.81 311 Office Visit 10/25/2014 1:15p [facility] [place] [address] 616.10 Office Visit 10/11/2014 10:30a [facility] [place] [address] 455.6 307.49 112.3 Office Visit 07/19/2014 2:30p [facility] Sinan Juarez MD [id number] 799.02 307.49 Office Visit 07/05/2014 4:30p [facility] Sinan Juarez [place] [id number] 799.02 307.49 786.09 401.1 Plan of Care Future Appointment(s):03/13/2018 9:00 am - Schedule, Laboratory at [facility]2017 2:30 pm - Sinan Juarez MD at [facility]12/26/2017 - Mia Juarez , [id number] CoughNew Medication:Doxycycline Monohydrate 100 mgComments:Recommend Mucinex 600mg every 12 hours until symptoms have totally resolved.Increase fluids.Humidifier.Tylenol 1000mg as needed for headache or pain Only fill Doxycycline prescription if symptoms worsen in next 1-2 days or don't improve in next 3-4 days.Follow up:PRN for no improvement in 1-2 weeks
[2017-12-30 09:35] VITALS: BP 119/60
--- NOTE | 2017-12-30 09:42 | UC ---
Back Pain HPI - HPI Summary HPI Summary: PATIENT WOKE UP 2 NIGHTS AGO TO USE THE RESTROOM. HAD SOME SLIGHT DIZZINESS WHICH SHE ATTRIBUTES TO STANDING UP TOO QUICKLY. THAT RESOLVED BUT WHEN SHE WENT TO THE RESTROOM SHE SLIPPED ON SOME WATER AND FELL ON HER BACKSIDE. SHE COMES IN WITH PERSISTENT RIGHT HIP PAIN AND LOW BACK PAIN. SHE DENIES NUMBNESS , TINGLING OR SADDLE ANESTHESIA. NO LOSS OF BOWEL OR BLADDER CONTROL. SHE DOES HAVE A HISTORY OF CHRONIC LOW BACK PAIN. - History of Current Complaint Chief Complaint: UCBackPain Stated Complaint: BACK INJURY S/P FALL Time Seen by Provider: 12/30/17 09:40 Hx Obtained From: Patient, Family/[employer] - DAUGHTER Hx Last Menstrual Period: n/a Onset/Duration: Sudden Onset, Lasting Days, Still Present Timing: Constant Severity Initially: Moderate Severity Currently: Moderate Pain Intensity: 8 Pain Scale Used: 0-10 Numeric Character: Sharp, Aching Aggravating Factor(s): Movement, Bending Alleviating Factor(s): Rest Associated Signs And Symptoms: Negative: Swelling, Redness, Bruising, Fever, Weakness, Numbness, Tingling, Bladder Incontinence, Bowel Incontinence - Allergies/Home Medications Allergies/Adverse Reactions: Allergies Allergy/AdvReac Type Severity Reaction Status Date / Time azithromycin Allergy Swelling Verified 12/30/17 09:39 Of Face,Lips,& Throat Cephalosporins Allergy Swelling Verified 12/30/17 09:39 Of Face,Lips,& Throat clarithromycin Allergy Swelling Verified 12/30/17 09:39 Of Face,Lips,& Throat fentanyl Allergy Swelling Verified 12/30/17 09:39 lisinopril Allergy Unknown Verified 12/30/17 09:39 Reaction Details losartan Allergy Swelling Verified 12/30/17 09:39 Of Face,Lips,& Throat ofloxacin Allergy Swelling Verified 12/30/17 09:39 silver sulfadiazine Allergy Unknown Verified 12/30/17 09:39 Reaction Details soybean Allergy Unknown Verified 12/30/17 09:39 Reaction Details Sulfa (Sulfonamide Allergy Swelling Verified 12/30/17 09:39 Antibiotics) Of Face,Lips,& Throat tramadol Allergy Unknown Verified 12/30/17 09:39 Reaction Details Home Medications: Home Medications DOXYcycline CAP(*) [DOXYcycline 100MG CAP(*)] 100 mg PO BID 12/30/17 [History Confirmed 12/30/17] Metoprolol Succinate XL TAB* [Toprol XL TAB*] 50 mg PO QAM 12/30/17 [History Confirmed 12/30/17] PMH/Surg Hx/FS Hx/Imm Hx - Additional Past Medical History Additional PMH: SCOLIOSIS Endocrine History: Diabetes Cardiovascular History: Hypertension, Congestive Heart Failure - Surgical History Surgical History: Yes Surgery Procedure, Year, and Place: ONE KNEE REPLACED(2004,[facility]) ONE KNEE REPLACED IN [place]; parathyroid(2009, [facility] [place]); gallbladder LONG TIME AGO. LEON CARPAL TUNNEL RELEASE; HYSTERECTOMY - Family History Known Family History: Positive: Hypertension - Social History Alcohol Use: None Substance Use Type: None Smoking Status (MU): Never Smoked Tobacco Have You Smoked in the Last Year: No - Immunization History Most Recent Influenza Vaccination: 2015 Most Recent Tetanus Shot: UTD Most Recent Pneumonia Vaccination: UTD Review of Systems Constitutional: Negative Skin: Negative Respiratory: Negative Cardiovascular: Negative Gastrointestinal: Negative Genitourinary: Negative Musculoskeletal: Arthralgia, Decreased ROM, Myalgia All Other Systems Reviewed And Are Negative: Yes Physical Exam Triage Information Reviewed: Yes Appearance: Well-Appearing, No Pain Distress, Well-Nourished Vital Signs: Initial Vital Signs Temp 98.4 F 12/30/17 09:21 Pulse 80 12/30/17 09:21 Resp 18 12/30/17 09:21 BP 119/60 12/30/17 09:21 Pulse Ox 99 12/30/17 09:21 Vital Signs Reviewed: Yes Eyes: Positive: Conjunctiva Clear ENT: Positive: Hearing grossly normal Neck: Positive: Supple Respiratory: Positive: No respiratory distress, No accessory muscle use Cardiovascular: Positive: Pulses Normal Abdomen Description: Positive: Soft Musculoskeletal: Positive: No Edema, ROM Limited @ - DECREASED ROM BACK. HAS POINT TENDERNESS LOW BACK OVER SPINE, Other: - NO PAIN WITH HIP MOVEMENT BUT TENDER LATERALLY. NO BRUISING OR SWELLING Neurological: Positive: Alert Psychological: Positive: Age Appropriate Behavior Skin: Negative: rashes Diagnostics - Radiology RIGHT HIP XRAY Xray Interpretation: Positive (See Comments) - OSTEOARTHRITIS Radiology Interpretation Completed By: Radiologist L-SPINE CT W/O CONTRAST Xray Interpretation: Positive (See Comments) - 1. DEGENERATIVE DISC DISEASE AND OSTEOARTHRITIS. 2. THERE IS SEVERE NARROWING OF THE CENTRAL CANAL AT L4-L5 WITH MODERATE NARROWING AT L3-L4 AND MILD NARROWING AT L2-L3. 3. THERE IS MULTILEVEL NEURAL FORAMINAL NARROWING Radiology Interpretation Completed By: Radiologist Back Pain Course/Dx - Course Course Of Treatment: PT REQUESTING HYDROCODONE FOR PAIN. STATES SHE HAS USED IT IN THE PAST WITH GOOD EFFECT. DISCUSSED CONCERN FOR SEDATION AND INCREASED RISK OF FALLS. PT STILL WOULD LIKE IT. ADVISED TO USE SPARINGLY AND F/U WITH PCP. PHYSICAL THERAPY REFERRAL GIVEN. - Differential Dx/Diagnosis Provider Diagnoses: 1. ACUTE ON CHRONIC LOW BACK PAIN. 2. RIGHT HIP CONTUSION Discharge - Sign-Out/Discharge Documenting (check all that apply): Discharge/Admit/Transfer - Discharge Plan Condition: Stable Disposition: HOME Prescriptions: HYDROcodone/ACETAMIN 5-325 MG* [[place] 5-325 TAB*] 1 tab PO Q6H PRN #20 tab MDD 4 PRN Reason: Pain Patient Education Materials: Acute Low Back Pain (ED), Chronic Back Pain (ED), Hip Contusion (ED) Referrals: Sinan Juarez MD [Primary Care Provider] - If Needed Additional Instructions: NO ACUTE CHANGES SEEN ON LUMBAR SPINE CT OR RIGHT HIP X-RAY ALTHOUGH THE IMAGING DOES SHOW YOUR KNOWN DEGENERATIVE DISC DISEASE, OSTEOARTHRITIS, SPINAL STENOSIS. HYDROCODONE NEEDED FOR DISCOMFORT HOWEVER PLEASE BE AWARE THAT THIS MEDICATION MAY CAUSE DIZZINESS, SEDATION OR INSTABILITY. BE EXTRA CAREFUL WHEN MOVING AROUND WITH THIS MEDICATION ON BOARD IT MAY INCREASE HER RISK OF FALLS. FOLLOW-UP WITH YOUR PCP FOR FURTHER MANAGEMENT OF YOUR CHRONIC BACK PAIN. PHYSICAL THERAPY REFERRAL GIVEN TODAY FOR YOU TO USE IF YOU DESIRE. - Billing Disposition and Condition Condition: STABLE Disposition: Home
--- NOTE | 2017-12-30 10:08 | RAD ---
HISTORY: fall, pain, right buttock pain COMPARISONS: None VIEWS: 3, Frontal view of the pelvis with frontal and frog-leg views of the right hip FINDINGS: BONE DENSITY: Normal. BONES: There is no displaced fracture. JOINTS: There is moderate osteoarthritis of the hips and SI joints bilaterally. ALIGNMENT: There is no dislocation. SOFT TISSUES: Unremarkable. OTHER FINDINGS: Degenerative changes are noted of the spine. IMPRESSION: OSTEOARTHRITIS. NO RADIOGRAPHIC EVIDENCE FOR HIP FRACTURE. X-RAYS MAY BE NEGATIVE WITH NONDISPLACED HIP FRACTURE, IF THERE IS PERSISTENT CLINICAL CONCERN, RECOMMEND CONSIDERATION OF MRI. IN THE SETTING OF CONTRAINDICATION TO MRI OR LIMITATION IN EMERGENT ACCESS TO MRI, CT WOULD BE SUGGESTED.
--- NOTE | 2017-12-30 10:23 | RAD ---
HISTORY: fall, pain, leg pain COMPARISONS: MRI dated November 05, 2015 TECHNIQUE: Multiple contiguous axial CT scans were obtained of the lumbar spine without intravenous contrast, with coronal and sagittal multiplanar reformations. FINDINGS: SPINAL CANAL: Evaluation of the central canal is limited on CT technique; however, there is no obvious canalicular mass or epidural hemorrhage. ALIGNMENT: There is grade 1 anterolisthesis of L4 on L5. VERTEBRAL BODIES: There is diffuse osteopenia. There is multilevel anterolateral marginal osteophyte formation. There is no displaced fracture. There are sclerotic reactive end plate changes most pronounced at L3-L4 and L4-L5. JOINTS: There is facet osteoarthritis most pronounced at L4-L5 and L5-S1. MUSCULATURE: There is moderate fatty infiltration. INTERVERTEBRAL DISCS: There is diffuse loss of intervertebral disc height throughout the spine. AXIAL IMAGES: T12-L1: There is no osseous neural foraminal narrowing or central canal stenosis. L1-L2: There is no osseous neural foraminal narrowing or central canal stenosis. L2-L3: There is a broad-based disc bulge. There is mild bilateral neural foraminal narrowing. There is mild narrowing of central canal.. L3-L4: There is a moderate disc bulge. There is ligament and bilateral facet hypertrophy. There is moderate bilateral neuroforaminal narrowing. There is moderate narrowing of the central canal. L4-L5: There is a broad-based disc bulge/rolled disc. There is bilateral facet hypertrophy. There is marginal osteophyte formation at the neuroforamina bilaterally. There is severe bilateral neural foraminal narrowing. There is severe narrowing of the central canal. L5-S1: There is bilateral facet hypertrophy. There is moderate bilateral neural foraminal narrowing. There is no significant central canal stenosis. SOFT TISSUES: There is atherosclerosis of the aorta. Renal cysts are noted. OTHER: There is osteoarthritis of the SI joints. IMPRESSION: 1. DEGENERATIVE DISC DISEASE AND OSTEOARTHRITIS. 2. THERE IS SEVERE NARROWING OF THE CENTRAL CANAL AT L4-L5 WITH MODERATE NARROWING AT L3-L4 AND MILD NARROWING AT L2-L3. 3. THERE IS MULTILEVEL NEURAL FORAMINAL NARROWING DESCRIBED ABOVE.
== END 2017-12-30 11:01 | disposition home or self-care (01) ==
LOC: UCCORT 09:10
DX: M54.9 Dorsalgia, unspecified (principal); G89.29 Other chronic pain; S70.01XA Contusion of right hip, initial encounter; W01.0XXA Fall on same level from slipping, tripping and stumbling without subsequent striking against object, initial encounter; Y93.01 Activity, walking, marching and hiking; Y92.002 Bathroom of unspecified non-institutional (private) residence as the place of occurrence of the external cause; Z88.1 Allergy status to other antibiotic agents; Z88.2 Allergy status to sulfonamides; Z88.8 Allergy status to other drugs, medicaments and biological substances; E11.9 Type 2 diabetes mellitus without complications; I10 Essential (primary) hypertension; M41.9 Scoliosis, unspecified; I50.9 Heart failure, unspecified
CPT/HCPCS: 72131; 99212; G0463

== ENCOUNTER 2018-01-17 10:29 | Emergency (ER) | payer MEDICARE ==
[2018-01-17 10:45] VITALS: BP 119/61
--- NOTE | 2018-01-17 11:31 | UC ---
Back Pain HPI - HPI Summary HPI Summary: lower back pain x years getting worse over the past few weeks was seen here at the urgent care 2 weeks ago , started on physical therapy , take norco as needed for pain pt. could not tolerated physical therapy requesting a referral to pain clinic - History of Current Complaint Chief Complaint: UCBackPain Stated Complaint: BACK PAIN Time Seen by Provider: 01/17/18 10:52 Hx Obtained From: Patient Hx Last Menstrual Period: n/a Onset/Duration: Gradual Onset, Lasting Weeks - 2, Still Present Timing: Constant Severity Initially: Severe Severity Currently: Severe Pain Intensity: 8 Pain Scale Used: 0-10 Numeric Back Pain: Is Diffuse - lower back pain Character: Throbbing Aggravating Factor(s): Movement, Lifting, Bending, Walking, Cough Alleviating Factor(s): Nothing Associated Signs And Symptoms: Positive: Weakness - lower ext, Numbness - bilateral lower legs, Tingling - bilateral lower legs. Negative: Swelling, Redness, Bruising, Fever - Allergies/Home Medications Allergies/Adverse Reactions: Allergies Allergy/AdvReac Type Severity Reaction Status Date / Time azithromycin Allergy Swelling Verified 01/17/18 10:45 Of Face,Lips,& Throat Cephalosporins Allergy Swelling Verified 01/17/18 10:45 Of Face,Lips,& Throat clarithromycin Allergy Swelling Verified 01/17/18 10:45 Of Face,Lips,& Throat fentanyl Allergy Swelling Verified 01/17/18 10:45 lisinopril Allergy Unknown Verified 01/17/18 10:45 Reaction Details losartan Allergy Swelling Verified 01/17/18 10:45 Of Face,Lips,& Throat ofloxacin Allergy Swelling Verified 01/17/18 10:45 silver sulfadiazine Allergy Unknown Verified 01/17/18 10:45 Reaction Details soybean Allergy Unknown Verified 01/17/18 10:45 Reaction Details Sulfa (Sulfonamide Allergy Swelling Verified 01/17/18 10:45 Antibiotics) Of Face,Lips,& Throat tramadol Allergy Unknown Verified 01/17/18 10:45 Reaction Details PMH/Surg Hx/FS Hx/Imm Hx - Additional Past Medical History Additional PMH: [facility] ONE KNEE REPLACED IN [place]; parathyroid(2009 , [facility] [place]); gallbladder LONG TIME AGO LEON CARPAL TUNNEL RELEASE; HYSTERECTOMY - Surgical History Surgical History: Yes Surgery Procedure, Year, and Place: ONE KNEE REPLACED(2004,) ONE KNEE REPLACED IN [place]; parathyroid(2010, [facility] [place]); gallbladder LONG TIME AGO. LEON CARPAL TUNNEL RELEASE; HYSTERECTOMY - Family History Known Family History: Positive: Hypertension - Social History Alcohol Use: None Substance Use Type: None Smoking Status (MU): Never Smoked Tobacco Have You Smoked in the Last Year: No - Immunization History Most Recent Influenza Vaccination: 2016 Most Recent Tetanus Shot: UTD Most Recent Pneumonia Vaccination: UTD Review of Systems Constitutional: Negative Skin: Negative Eyes: Negative ENT: Negative Respiratory: Negative Is Patient Immunocompromised?: No All Other Systems Reviewed And Are Negative: Yes Physical Exam Triage Information Reviewed: Yes Appearance: Pain Distress, Obese Vital Signs: Initial Vital Signs Temp 98.6 F 01/17/18 10:39 Pulse 81 01/17/18 10:39 Resp 16 01/17/18 10:39 BP 119/61 01/17/18 10:39 Pulse Ox 97 01/17/18 10:39 Vital Signs Reviewed: Yes Eyes: Positive: Conjunctiva Clear ENT: Positive: Normal ENT inspection, Hearing grossly normal, Pharynx normal Neck: Positive: Supple, Nontender, No Lymphadenopathy Respiratory: Positive: Chest non-tender, Lungs clear, Normal breath sounds Cardiovascular: Positive: RRR, No Murmur, Pulses Normal Musculoskeletal: Positive: Other: - lower back: no focal tenderness, pain with flexion and rotation , limited rom on flexion . Back Pain Course/Dx - Differential Dx/Diagnosis Provider Diagnoses: lower back pain. lumbar stenosis Discharge - Sign-Out/Discharge Documenting (check all that apply): Patient Departure - Discharge Plan Condition: Stable Disposition: HOME Prescriptions: HYDROcodone/ACETAMIN 5-325 MG* [[place] 5-325 TAB*] 1 tab PO Q6H PRN #30 tab MDD 4 PRN Reason: Pain Patient Education Materials: Lumbar Spinal Stenosis (ED), Back Pain (ED) Referrals: Sinan Ford MD [Medical Doctor] - As Soon As Possible Sinan Juarez MD [Primary Care Provider] - Savage Beth MD [Medical Doctor] - As Soon As Possible - Billing Disposition and Condition Condition: STABLE Disposition: Home
== END 2018-01-17 11:16 | disposition home or self-care (01) ==
LOC: UCCORT 10:29
DX: M48.061 Spinal stenosis, lumbar region without neurogenic claudication (principal); Z88.6 Allergy status to analgesic agent; Z88.1 Allergy status to other antibiotic agents; Z88.8 Allergy status to other drugs, medicaments and biological substances
CPT/HCPCS: 99212; G0463

== ENCOUNTER 2018-12-08 09:55 | Emergency (ER) | payer MEDICARE ==
--- OUTSIDE RECORDS SUMMARY | 2018-12-08 10:18 | XMS REPORT | Continuity of Care Document ---
:1940 External Reference #:[id number] Author Name Hermelinda Clark Care Team Providers Name Role Phone Arun Allen MD Care Team Information [employer] Unavailable Sinan Juarez MD Primary Care Physician Unavailable Payers Date Identification Numbers Payment Provider Subscriber Effective: Policy Number: [id number] Medicare Blue Ppo Jadyn Correa 2012 Group Number: [id number] [address] [address] PayID: [id number] [place] [address] Family History Date Family Member(s) Observation Comments General None Social History Type Date Description Comments Sex Unknown Marital Status Lives With Alone Occupation Retired Occupation Retired Tobacco Use Start: Unknown Never Smoked Cigarettes Tobacco Use Start: Unknown Never Smoked Cigarettes Tobacco Use Start: Unknown Never Smoked Cigars Tobacco Use Start: Unknown Never Smoked Cigars Tobacco Use Start: Unknown Never Smoked A Pipe Tobacco Use Start: Unknown Never Smoked A Pipe Smokeless Tobacco Never Used Smokeless Tobacco Smokeless Tobacco Never Used Smokeless Tobacco ETOH Use Denies alcohol use ETOH Use Denies alcohol use Tobacco Use Start: Unknown Patient has never smoked Tobacco Use Start: Unknown Patient has never smoked Smoking Status Reviewed: 11/22/18 Patient has never smoked Allergies, Adverse Reactions, Alerts Active Allergies Reaction Severity Comments Date Sulfa Antibiotics swelling 10/25/2012 Sulfa Antibiotics 09/18/2018 Silver Sulfadiazine 10/25/2012 Prevacid 10/25/2012 Zithromax 10/25/2012 Biaxin 10/25/2012 Ceftin 10/25/2012 Ofloxacin 10/25/2012 Tramadol 05/12/2016 Medications Active Medications SIG Qnty Indications Ordering Date Provider Clotrimazole use three times a Unknown Anti-Fungal day 1% Cream Nystatin-Triamcinolone use three times a Unknown day until clear 407353-7.1Unit/GM-% Cream Prilosec 1 by mouth every Unknown 20mg Capsules DR day Benadryl Allergy 1 four times a day Unknown 25mg for 3 days Tablets Desloratadine 1 by mouth every Unknown 5mg Tablets day Amiodarone HCL 1 by mouth every Unknown 200mg day Tablets Xarelto 1 by mouth every Unknown 20mg Tablets day Vicodin 1/2-1 every 8 Unknown 5-300mg Tablets hours as needed Estropipate 2 by mouth every 30tabs Unknown 0.75mg day Tablets Epipen 2-Jordan use as directed Unknown 0.3mg/0.3ML Solution Auto-Inject Cholestyramine Light 1 packet by mouth Unknown 4gm every day Packet Albuterol Sulfate 1 application Unknown every 4 hours as (2.5mg/3ML) 0.083% needed Nebulizer Metoprolol Succinate 1 by mouth every Unknown ER day 25mg Tablets ER 24HR Metformin HCL 1 by mouth twice a Unknown 850mg day Tablets Citalopram 1 by mouth every Unknown Hydrobromide day 20mg Tablets Amlodipine Besylate 1 by mouth every Unknown 5mg day Tablets Hydroxyzine Pamoate 1 caps by mouth 30caps Unknown 25mg every day Capsules Oxybutynin Chloride by mouth every day 30tabs Unknown 5mg Tablets Levocetirizine 1 by mouth every Unknown Dihydrochloride day 5mg Tablets Torsemide 1 by mouth every Unknown 10mg Tablets day Famotidine take one tablet by Unknown 20mg Tablets mouth twice a day Glipizide 1 po qd Unknown 10mg Tablets Atorvastatin Calcium 1 by mouth every Unknown 10mg day Tablets Ventolin HFA 2 puffs po qid prn 2units Unknown 108(90Base) mcg/Act Aerosol Aspirin Ec Lo-Dose 1 tablet daily. 90tabs Unknown 81mg Tablets DR Shahid Cobian 1 qd Unknown 1000U History Medications Ultracet 1-2 tabs by 30tabs Laura Curtis, 03/29/2016 - 37.5-325mg mouth every 4-6 M.D. 05/11/2016 Tablets hours as needed pain Ultracet 1-2 tabs by 30tabs Laura Curtis, 04/30/2015 - 37.5-325mg mouth every 4-6 M.D. 09/26/2015 Tablets hours as needed pain Tessalon Perles 1 by mouth every 30caps Kofi Brody, 09/11/2013 - 100mg 8 hours as M.D. 07/10/2014 Capsules needed for cough Howard 1 po q6 hr prn 30tabs Laura Curtis, 01/01/2013 - 5-325mg Tablets pain M.D. 09/11/2013 Unisom Sleepmelts Unknown - 09/04/2018 Tablets Magnesium Unknown - 09/12/2018 Loratadine 1 by mouth every Unknown - 10mg Tablets day 09/11/2018 Amlodipine Besylate 1 by mouth every Unknown - 2.5mg day 09/18/2018 Tablets Metoprolol Tartrate 1 by mouth twice Unknown - 100mg a day 09/18/2018 Tablets Loratadine Childrens Unknown - 09/26/2015 Tablet Advair Diskus 1 puff by mouth 60units Unknown - twice a day 09/13/2018 500-50mcg/Dose Aerosol Metformin HCL 1 by mouth twice 180tabs Unknown - 500mg a day 09/18/2018 Tablets Amlodipine Besylate 1 po qd 90tabs Unknown - 5mg 09/26/2015 Tablets Amlodipine Besylate 1 po qd 90tabs Unknown - 5mg 09/26/2015 Tablets Epipen 2-Jordan sc prn 2units Unknown - 0.3mg/0.3ML 09/26/2015 Device Losartan Potassium 1 po qd 90tabs Unknown - 100mg 03/26/2016 Tablets Tylenol/Codeine #3 1-2 po q 4-6 hr 20tabs Unknown - prn pain 09/26/2015 300-30mg Tablets Premarin 1 po qd 90tabs Unknown - 1.25mg Tablets 09/06/2018 Pantoprazole Sodium 1 po qd 30tabs Unknown - 40mg 09/26/[address] Kelley 1 po bid 60tabs Unknown - 500mg Tablets 09/06/2018 Citalopram 1 po qd 90tabs Unknown - Hydrobromide 09/18/2018 10mg Tablets Charlene 1 po qd prn 30tabs Unknown - 180mg Tablets 09/26/2015 Vesicare 1 po qd 30tabs Unknown - 10mg Tablets 09/26/2015 Medications Administered in Office Medication SIG Qnty Indications Ordering Provider Date Depomedrol 40MG Laura Curtis M.D. 09/28/2017 Injection Depomedrol 40MG Laura Curtis M.D. 04/20/2017 Injection Depomedrol 40MG ROLDAN Her 04/07/2017 Injection Depomedrol 40MG Laura Curtis M.D. 12/16/2016 Injection Depomedrol 40MG Laura Curtis M.D. 05/12/2016 Injection Depomedrol 40MG Laura Curtis M.D. 04/14/2016 Injection Depomedrol 40MG Laura Curtis M.D. 02/04/2016 Injection Depomedrol 80MG Laura Curtis M.D. 04/30/2015 Injection Depomedrol 80MG Laura Curtis M.D. 11/13/2014 Injection Depomedrol 80MG Laura Curtis M.D. 07/10/2014 Injection Denisarol 80MG Laura Curtis M.D. 10/24/2013 Injection Denisarol 80MG Laura Curtis M.D. 10/24/2013 Injection Depomedrol 80MG Laura Curtis M.D. 07/11/2013 Injection Depomedrol 80MG Laura Curtis M.D. 04/11/2013 Injection Depomedrol 80MG Laura Curtis M.D. 01/01/2013 Injection Depomedrol 80MG Laura Curtis M.D. 10/25/2012 Injection Vital Signs Date Vital Result Comment 11/22/2018 1:20pm Height 65 inches 5'5" Weight 210.00 lb BP Systolic 141 mmHg BP Diastolic 88 mmHg Respiratory Rate 18 /min Body Temperature 96.9 F Pain Level 4 BMI (Body Mass Index) 34.9 kg/m2 09/18/2018 1:36pm Height 65 inches 5'5" Weight 210.00 lb BP Systolic Sitting 124 mmHg BP Diastolic Sitting 72 mmHg Respiratory Rate 16 /min Body Temperature 99.2 F Pain Level 5 Pressure BMI (Body Mass Index) 34.9 kg/m2 09/18/2018 1:22pm Height 65 inches 5'5" Weight 210.00 lb BP Systolic Sitting 124 mmHg BP Diastolic Sitting 72 mmHg Respiratory Rate 16 /min Body Temperature 99.2 F Pain Level 5 pressure BMI (Body Mass Index) 34.9 kg/m2 09/28/2017 9:50am Height 65 inches 5'5" Heart Rate 85 /min BP Systolic 134 mmHg BP Diastolic 76 mmHg Respiratory Rate 16 /min Body Temperature 97.0 F Pain Level 10 04/20/2017 1:56pm Height 65 inches 5'5" Weight 230.00 lb Respiratory Rate 16 /min Body Temperature 97.8 F Pain Level 5 BMI (Body Mass Index) 38.3 kg/m2 04/07/2017 8:21am Height 65 inches 5'5" Weight 230.00 lb Heart Rate 76 /min Respiratory Rate 18 /min Body Temperature 96.4 F Pain Level 3 BMI (Body Mass Index) 38.3 kg/m2 12/16/2016 1:36pm Height 65 inches 5'5" BP Systolic 118 mmHg BP Diastolic 82 mmHg Body Temperature 97.6 F Pain Level 10 05/12/2016 10:06am Height 65 inches 5'5" Weight 229.00 lb Pain Level 3 BMI (Body Mass Index) 38.1 kg/m2 04/14/2016 9:15am Height 65 inches 5'5" Weight 229.00 lb Pain Level 3 BMI (Body Mass Index) 38.1 kg/m2 03/29/2016 9:59am Height 65 inches 5'5" Weight 229.00 lb Pain Level 2 BMI (Body Mass Index) 38.1 kg/m2 02/04/2016 1:26pm Heart Rate 88 /min BP Systolic Sitting 138 mmHg BP Diastolic Sitting 90 mmHg 09/29/2015 8:30am Height 65 inches 5'5" Weight 229.00 lb Heart Rate 80 /min BP Systolic Sitting 130 mmHg BP Diastolic Sitting 80 mmHg Respiratory Rate 18 /min BMI (Body Mass Index) 38.1 kg/m2 04/30/2015 9:18am Weight 210.00 lb Heart Rate 88 /min BP Systolic Sitting 132 mmHg BP Diastolic Sitting 88 mmHg 11/13/2014 3:59pm Heart Rate 82 /min BP Systolic Sitting 124 mmHg BP Diastolic Sitting 82 mmHg 07/10/2014 11:40am Heart Rate 80 /min BP Systolic Sitting 124 mmHg BP Diastolic Sitting 82 mmHg 11/20/2013 2:31pm Weight 210.00 lb Body Temperature 98.7 F 10/24/2013 1:35pm Weight 210.00 lb Heart Rate 88 /min BP Systolic Sitting 124 mmHg BP Diastolic Sitting 86 mmHg 09/11/2013 1:44pm Weight 210.00 lb Heart Rate 80 /min BP Systolic Sitting 122 mmHg BP Diastolic Sitting 82 mmHg 10/25/2012 2:58pm Height 65 inches 5'5" Weight 210.00 lb Heart Rate 76 /min BP Systolic Sitting 128 mmHg BP Diastolic Sitting 82 mmHg BMI (Body Mass Index) 34.9 kg/m2 Results Test Date Facility Test Result H/L Range Note Laboratory test 04/02/2016 [facility] Point of Care 163 mg/dL High 74-106 [address] [place] [address] [phone] 1 Mill Supervisor: [id number] ANN-MARIE IVERSON Procedures Date Code Description Status 11/22/201875112 Inject Tendon Sheath Or Ligament Aponeurosis Eg Plantar Completed Fascia 09/18/2018 60869 Nasal Endoscopy, Diagnostic Completed 09/28/201775139 Inject Tendon Sheath Or Ligament Aponeurosis Eg Plantar Completed Fascia 04/20/2017 54318 Inject/Drain Joint/Bursa Small W/O US Completed 04/07/201790133 Inject Tendon Sheath Or Ligament Aponeurosis Eg Plantar Completed Fascia 12/16/2016 62957 Inject Tendon Sheath Or Ligament Aponeurosis Eg Plantar Completed Fascia 05/12/2016 81285 Inject Tendon Sheath Or Ligament Aponeurosis Eg Plantar Completed Fascia 04/14/2016 77604 Inject Tendon Sheath Or Ligament Aponeurosis Eg Plantar Completed Fascia 04/02/2016 47150 Trigger Finger Release Incision / Tendon Sheath Incision Completed 04/02/2016 67587 Trigger Finger Release Incision / Tendon Sheath Incision Completed 02/04/2016 43829 Inject Tendon Sheath Or Ligament Aponeurosis Eg Plantar Completed Fascia 04/30/2015 43707 Inject Tendon Sheath Or Ligament Aponeurosis Eg Plantar Completed Fascia 11/13/2014 89724 Inject Tendon Sheath Or Ligament Aponeurosis Eg Plantar Completed Fascia 07/10/2014 86498 Inject Tendon Sheath Or Ligament Aponeurosis Eg Plantar Completed Fascia 10/24/2013 18504 Inject Tendon Sheath Or Ligament Aponeurosis Eg Plantar Completed Fascia 10/24/2013 59224 Inject Tendon Sheath Or Ligament Aponeurosis Eg Plantar Completed Fascia 09/11/2013 37160 Fibroptic Laryngoscopy Completed 07/11/2013 84393 Inject Tendon Sheath Or Ligament Aponeurosis Eg Plantar Completed Fascia 07/11/2013 49305 Inject Tendon Sheath Or Ligament Aponeurosis Eg Plantar Completed Fascia 04/11/2013 30771 Inject Tendon Sheath Or Ligament Aponeurosis Eg Plantar Completed Fascia 04/11/2013 52299 Inject Tendon Sheath Or Ligament Aponeurosis Eg Plantar Completed Fascia 01/01/2013 10737 Rad Exam; Wrist, Comp, Min 3 Views Completed 01/01/2013 69619 Inject Tendon Sheath Or Ligament Aponeurosis Eg Plantar Completed Fascia 10/25/2012 09622 Rad Exam; Wrist, Comp, Min 3 Views Completed 10/25/2012 01885 Rad Exam; Elbow, Comp Completed 10/25/2012 09435 Injection Single Tendon Origin/Insertion Completed Encounters Type Date Location Provider Dx Diagnosis Office Visit 09/18/2018 [facility], 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 AT [facility] H92.02 Otalgia, left ear J32.9 Chronic sinusitis, unspecified R20.0 Anesthesia of skin Office Visit 04/07/2017 9:00a Orthopedic Ranjana Zarco, M65.322 [facility] finger, left C.M.A. index finger Office Visit 12/16/2016 1:15p Orthopedic Laura Curtis M65.342 [facility] M.D. finger, left C.M.A. ring finger Office Visit 05/12/2016 10:10a Orthopedic Laura Curtis M65.341 [facility] M.[facility] finger, right C.M.A. ring finger M65.311 Trigger thumb, right thumb Office Visit 09/29/2015 Mohan Lujan, R25.1 Tremor, 9:00a Neurologic M.D. unspecified [facility] Office Visit 04/30/2015 Escobar Sanchez M65.341 Trigger finger, 9:30a Services Of Tyler Curtis M.D. right ring finger AT [place] Office Visit 11/20/2013 [facility], 350.2 Face Pain 2:15p C.M.A. AT [place] Atypical [place] Office Visit 09/11/2013 [facility], 786.2 Cough 1:45p C.M.A. AT M.D. [place] Office Visit 04/11/2013 Orthopedic Laura 719.43 Pain Joint 11:30a Services Of Tyler Curtis M.D. Forearm AT [place] 727.04 Tenosynovitis Radial Styloid 727.03 Trigger Finger Acquired Office Visit 01/01/2013 10:15a Orthopedic Laura Curtis 719.43 Pain Joint [facility] Salas Forearm AT [place] Office Visit 10/25/2012 2:45p Orthopedic Laura Curtis 719.43 Pain Joint [facility] Sal[facility] Forearm AT [place] 726.31 Epicondylitis Medial 726.32 Epicondylitis Lateral Plan of Treatment 11/22/2018 - Laura Curtis M.D.M65.342 Trigger finger, left ring fingerFollow up:Follow up: As needed
== END 2018-12-08 10:04 | disposition left against medical advice (07) ==
LOC: UCCORT 09:55
DX: H57.89 Other specified disorders of eye and adnexa (principal); Z53.21 Procedure and treatment not carried out due to patient leaving prior to being seen by health care provider

== ENCOUNTER 2019-03-18 08:38 | Emergency (ER) | payer MEDICARE ==
--- OUTSIDE RECORDS SUMMARY | 2019-03-18 08:49 | XMS REPORT | Continuity of Care Document ---
:1940 External Reference #:[id number] Author Name Aranza Malik PA Address [address] [place] [address] Care Team Providers Name Role Phone Hubert Bassett MD - Cardiovascular Care Team Information Application Helper Disease [facility] - Allergy & Care Team Information Application Helper [phone] Immunology Frankie Parry - Cardiovascular Care Team Information Application Helper [phone] Disease Sinan Juarez MD - Family Care Team Information Application Helper Medicine Ramesh Sheridan DR Care Team Information Application Helper [phone] Wellington Crowell MD - Allergy & Care Team Information Application Helper Unavailable Immunology Problems Active Problems Provider Date Allergic rhinitis Sinan Juarez MD Onset: 01/08/2014 Disorder of magnesium metabolism Sinan Juarez MD Onset: 05/07/2013 Mixed hyperlipidemia Sinan Juarez MD Onset: 10/11/2012 Urinary incontinence Sinan Juarez MD Onset: 04/11/2012 Type 2 diabetes mellitus Sinan Juarez MD Onset: 10/20/2010 Vitamin D deficiency Sinan Juarez MD Onset: 12/16/2009 Degenerative joint disease involving Sinan Juarez MD Onset: 2008 multiple joints Irritable bowel syndrome Onset: 07/10/2005 Peripheral venous insufficiency Onset: 07/10/2005 Lumbosacral spondylosis without myelopathy Onset: 07/10/2005 Hormone replacement therapy Sinan Juarez MD Onset: 10/28/2004 Hypoxemia Sinan Juarez MD Onset: 07/05/2014 Obstructive sleep apnea syndrome Siann Juarez MD Onset: 02/19/2015 Essential tremor Sinan Juarez MD Onset: 02/19/2015 Essential hypertension Sinan Juarez MD Onset: 06/16/2015 Mild recurrent major depression Sinan Juarez MD Onset: 03/24/2016 Gastroesophageal reflux disease Sinan Juarez MD Onset: 10/28/2004 Atrial fibrillation Sinan Juarez MD Onset: 10/02/2018 Social History Type Date Description Comments Sex Unknown Tobacco Use Start: Unknown Never Smoked Cigarettes ETOH Use Rarely consumes alcohol Tobacco Use Start: Unknown Patient has never smoked Allergies, Adverse Reactions, Alerts Active Allergies Reaction Severity Comments Date Cephalosporins SOB/Angioedema 07/04/2014 Ofloxacin insomnia 10/20/2010 Clarithromycin 01/26/2014 Fentanyl Throat Swelling 02/14/2006 Silver Sulfadiazine Edema 01/12/2005 Biaxin ? RXN 07/04/2014 Azithromycin ? RXN 07/05/2014 Ofloxacin Insomnia 07/05/2014 Soybean-containing Drug Products Anaphylaxis Severe 05/12/2016 Tramadol lip swelling 05/12/2016 Lisinopril eye swelling 05/12/2016 Medications Active Medications SIG Qnty Indications Ordering Date Provider Cholestyramine 1 scoop once a day 1134gm K58.9 Digiovanna, 10/18/2018 4GM/Dose in fluid by mouth MD Sinan Powder Freestyle Lite Blood Check Finger 1units E11.9 Digiovanna, 10/13/2018 Glucose Monitoring Sticks Daily MD Sinan System Device Magnesium Oxide 1 by mouth every OTC E83.42 Digiovanna, 10/02/2018 400mg day MD Sinan Tablets Xarelto Take 1 Tablet By 30tabs I48.91 Digiovanna, 06/02/2018 20mg Tablets Mouth Every Day MD Sinan Hydrocodone-Acetamino 1/2 or 1 tab by 90tabs Digiovandarrick, 05/16/2018 phen mouth every 8 MD Sinan 5-325mg Tablets hours as needed for severe burn pain Citalopram take 1 tablet by 90tabs F33.0 Digiovanna, 10/17/2017 Hydrobromide mouth every day MD Sinan 20mg Tablets Estropipate 2 pills by mouth 180tabs Z79.890 Ann, 04/01/2017 0.75mg once a day MD Sinan Tablets Clotrimazole 1 application to 15gm R21 King, 01/27/2017 1% Cream affected area MAITE Cobian twice daily Fluticasone 1 spray each 1units J06.9 Ann, 11/26/2016 Propionate nostril daily Mia, [employer] 50mcg/Act Suspension J30.9 Freestyle Lite Test use as directed 100units E11.9 Sinan Juarez, twice a day Strips Amlodipine Besylate Take 1 Tablet By 90tabs I10 Sinan Juarez, 10/21 Mouth Every Day 5mg Tablets Ventolin HFA 2 puffs every 4 8gm J45.40 Sinan Juarez, 06/14/2016 hours as needed 108(90Base) mcg/Act Aerosol Aspirin 1 by mouth every OTC E11.9 Sinan Juarez, 03/10/2016 81mg Tablets day MD IGNACIO Glipizide ER take 1 tablet by 90tabs E11.65 Sinan Juarez, 2014 10mg mouth every day Tablets ER 24HR E11.9 Metformin HCL Take 1 Tablet By 180tabs E11.65 Sinan Juarez, 2014 850mg Mouth Twice Daily Tablets With A Meal. Maximum Daily Dose Is 2. Maximum Daily Dose Is 2 E11.9 Lancets For Use each am to 50units E11.65 Sinan Juarez, 11/19/2014 Glucometer check fasting blood sugar E11.9 Test Strips For Check blood sugar 50units E11.65 Sinan Juarez, Glucometer each am - fasting E11.9 Nystatin-Triamcinolone apply to affected 60gm B37.2 KingAranza, 10/11 area bid-tid [place] 859608-5.1Unit/GM-% Ointment Albuterol Sulfate 1 vial via 75ml J20.9 Ann, 04/18/2014 (2.5mg/3ML) 0.083% nebulizer every 4 MD Sinan Nebulizer hours as needed wheezing J45.40 [facility] Vitamin D3 1 po qd E55.9 Sinan Juarez MD 04/11/2012 1000Unit Capsules Amiodarone HCL 1 By Mouth Once A I48.0 Frankie Parry 100mg Tablets Day I48.91 Metoprolol Succinate ER 1 by mouth every day I10 Frankie Parry 25mg Tablets ER 24HR G25.0 I48.91 Atorvastatin Calcium take 1 tablet by mouth E78.2 Frankie Parry 10mg Tablets every evening E78.0 Hydroxyzine HCL take 1 tablet by 90tabs Sinan Juarez, 25mg mouth every night Tablets at bedtime Famotidine take 1 tablet by 90tabs K21.9 Sinan Juarez, 20mg Tablets mouth every day Torsemide take 1 tablet by 90tabs I10 Sinan Juarez, 10mg Tablets mouth every day R60.9 Prednisone 4 tabs po qd x 3d, Unknown 10mg Tablets 3 tabs po qd x 3 days,2 tabs po qd x 3days, then 1 tab Dailyuntil Gone Oxybutynin Chloride ER take one tablet by 90tabs R32 Ann, 5mg mouth every day MD Sinan Tablets ER 24HR Diphenhydramine HCL 1 by mouth every 6 Unknown 25mg hours as needed Capsules itching Epinephrine inject if needed 2units T78.3xxD Ann, 0.3mg/0.3ML then call 911. MD Sinan Solution Auto-Inject Levocetirizine 1 by mouth every 90tabs T78.3xxD Ann, Dihydrochloride day MD Sinan 5mg Tablets J30.9 Desloratadine 1 by mouth every day T78.3xxD Unknown 5mg Tablets History Medications Amoxicillin/Clavulanate 1 by mouth 20tabs L03.213 Jaycob 12/08/2018 - Potassium twice daily MD Mary Anne 02/14/2019 875-125mg Tablets x 10 days Immunizations CPT Code Status Date Vaccine Reaction Lot # 56483 Given 03/22/2018 Fluzone Highdose Age 65 And Over [facility] Preservative & Antibiotic Free 72151 Given 03/24/2017 Fluzone Highdose Age 65 And Over Preservative & Antibiotic Free 32013 Given 02/19/2015 Prevnar 13 Pneumococal Conjugate [facility]# 3817-4993-03 [id number] Vaccine 80562 Given 05/06/2013 Afluria Or Fluvirin Flu Vac Intramuscular 53993 Given 04/11/2012 Afluria Or Fluvirin Flu Vac Intramuscular 01459 Given 04/05/2011 Afluria Or Fluvirin Flu Vac Intramuscular 21903 Given 03/23/2010 Afluria Or Fluvirin Flu Vac Intramuscular 16146 Given 04/11/2008 Afluria Or Fluvirin Flu Vac Intramuscular 51283 Given 03/29/2007 Afluria Or Fluvirin Flu Vac Intramuscular 99158 Given 05/16/2006 Afluria Or Fluvirin Flu Vac Intramuscular 78757 Given 12/29/2005 Tetanus And Diptheria Toxoids For Adult Use-preservative free 51364 Given 04/22/2005 Pneumococcal 23 Immunization Adult Or Immunosuppressed Patient 13222 Given 04/22/2005 Pneumococcal 23 Immunization Adult Or Immunosuppressed Patient 93336 Given 04/22/2005 Afluria Or Fluvirin Flu Vac Intramuscular 82255 Given 04/22/2005 Afluria Or Fluvirin Flu Vac Intramuscular 49230 Given 04/30/2004 Afluria Or Fluvirin Flu Vac Intramuscular Vital Signs Date Vital Result Comment 02/14/2019 9:48am Body Temperature 97.7 F Heart Rate 74 /min BP Systolic 142 mmHg BP Diastolic 80 mmHg 12/08/2018 11:14am Heart Rate 86 /min BP Systolic 130 mmHg BP Diastolic 78 mmHg Respiratory Rate 18 /min Height 64.5 inches 5'4.50" O2 % BldC Oximetry 97 % Ra Results Test Date Facility Test Result H/L Range Note Laboratory test finding 02/14/2019 [facility] Magnesium <pending> Laboratory test finding 02/14/2019 [facility] Hemoglobin A1c <pending> Vit D 25Oh <pending> Laboratory test finding 02/14/2019 [facility] TSH <pending> Thyroid Auto Antibodies 02/14/2019 [facility] Thyroid Peroxidase <pending> Antibody-fcmg Thyroglobulin AB <pending> Laboratory test 02/14/2019 [facility] Complement C4 <pending> finding -RL Laboratory test 02/14/2019 [facility] Tryptase-RL <pending> finding Blood Culture 12/09/2018 [facility] Blood Culture NO GROWTH: 1, 2 (315)- - Aerobic FINAL <SEE NOTE> Blood Culture Anaerobic NO GROWTH: FINAL <SEE NOTE> 3 Comprehensive Metabolic 12/09/2018 [facility] Glucose 140 mg/dL High 74-106 Panel (315)- - BUN 43 mg/dL High 7-18 Creatinine 1.2 mg/dL Normal 0.6-1.3 Glom Filtration Rate, Estimate 46 mL/min >60 If 56 mL/min >60 4 BUN/Creat 35.8 ratio Sodium 138 mmol/L Normal 136-145 Potassium 4.2 mmol/L Normal 3.5-5.1 Chloride 102 mmol/L Normal 98-107 Carbon Dioxide 26 mmol/L Normal 21-32 Anion Gap 10 mEq/L Normal 8-16 Calcium 8.9 mg/dL Normal 8.5-10.1 Total Protein 7.3 g/dL Normal 6.4-8.2 Albumin 3.4 g/dL Normal 3.4-5.0 Globulin 3.9 g/dL Normal 1.9-4.3 Alb/Glob 0.9 ratio Bilirubin,Total 0.4 mg/dL Normal 0.2-1.0 Sgot/Ast 27 U/L Normal 15-37 SGPT/Alt 53 U/L Normal 12-78 Alkaline Phosphatase 110 U/L Normal 45-117 Lactic Acid 12/09/2018 [facility] Lactic Acid 1.1 mmol/L Normal 0.4-1.9 (315)- - Lab Reflex >2.0 for Sepsis? Y CBS W/Automated 12/09/2018 [facility] White Blood 11.2 K/ uL High 3.1-10.7 Diff (315)- - Count Red Blood Count 4.48 M/uL Normal 3.90-5.40 Hemoglobin 13.0 gm/dL Normal 11.6-15.8 Hematocrit 38.7 % Normal 36.0-46.1 Mean Cell Volume 86.4 fl Normal 80.9-99.0 Mean Corpuscular HGB 29.0 pg Normal 25.9-32.7 Mean Corpuscular HGB Conc 33.6 g/dL Normal 30.8-34.3 Platelet Count 309 K/uL Normal 155-360 Red Cell Distri Width SD 42.5 fl Normal 36-47 Red Cell Distri Width %CV 13.6 % Normal 11.7-14.4 Mean Platelet Volume 9.9 fl Normal 8.9-12.4 Neut% 72.5 % Normal 40.4-72.8 Lymph % 16.6 % Low 20.0-42.0 [place] % 7.1 % Normal 4.3-13.2 Eo% 2.9 % Normal 0.0-6.6 Bas% 0.5 % Normal 0.0-1.1 Immature Grans 0.4 % Normal 0.0-5.0 NRBC % 0.0 /100WBC < 10/ 100 WBC Neut# 8.12 K/uL High 1.8-7.0 Lymph # 1.86 K/uL Normal 1.0-4.0 [place] # 0.79 K/uL Normal 0.3-0.9 Eos # 0.32 K/uL Normal 0.0-0.5 Baso # 0.06 K/uL Normal 0.0-0.1 Immature Grans Absolute 0.04 K/uL NRBC # 0.00 K/uL Ua RFX Micro & 12/09/2018 [facility] Urine Color YELLOW Yellow Culture II (315)- - Urine Clarity CLEAR Clear Urine Glucose - Dipstick NEGATIVE mg/dL Negative Urine Bilirubin - Dipstick NEGATIVE Negative Urine Ketone NEGATIVE mg/dL Negative Urine Specific [place] 1.010 Normal 1.010-1.030 Urine Blood NEGATIVE Negative Urine PH 5.5 Low 6.5-7.5 Urine Protein - Dipstick NEGATIVE mg/dL Negative Urine Urobilinogen - Dipstick 0.2 E.U./dL Normal 0.2-1.0 Urine Nitrite - Dipstick NEGATIVE Negative Urine Leuk Esterase NEGATIVE Negative Source: URINE, CLEAN CAT <SEE NOTE> 5 Blood Culture 12/09/2018 [facility] Blood Culture NO GROWTH: FINAL 6 (315)- - Aerobic <SEE NOTE> Blood Culture Anaerobic NO GROWTH: FINAL <SEE NOTE> 7 Basic (BMP) 09/22/2018 [facility] Sodium 138 mmol/L 135-146 8, 9 Potassium 4.3 mmol/L 3.5-5.2 Chloride# 101 mmol/L 97-110 10 Carbon Dioxide 26 mmol/L 24-34 Glucose 151 mg/dL High 70-105 BUN 27 mg/dL High 6-26 Creatinine 1.0 mg/dL 0.5-1.4 Calcium 9.4 mg/dL 8.5-10.2 Non Pamela Egfr 56 Low >60 11 Pamela Egfr >60 >60 12 Anion Gap 11 mmol/L 5-15 13 Lipid Treatment 09/22/2018 [facility] Cholesterol 238 mg/dL High 50-199 Triglycerides 420 mg/dL High 30-200 HDL 43 mg/dL 35-85 14 Chol/ HDL Ratio 5.5 ratio 3.7-5.6 Alt 40 U/L 3-42 Ast 26 U/L 8-42 Laboratory test finding 09/22/2018 [facility] Magnesium 1.3 mg/dL Low 1.5- 2.7 CBC with Auto Diff-fcmg 09/22/2018 [facility] WBC 8.1 K/uL 4.1-11.0 RBC 4.57 M/uL 4.00-5.40 Hemoglobin 13.1 gm/dL 12.0-16.0 Hematocrit 38.9 % 36.0-47.0 MCV 85.2 fL 80.0-97.0 MCH 28.6 pg 27.0-32.0 MCHC 33.6 g/dL 32.0-36.0 RDW 13.7 % 11.5-14.5 PLT Count 298 K/ul 140-400 MPV 8.8 FL 7.1-10.7 Neutrophil 64.0 % 35.0-75.0 Lymphocyte 24.0 % 16.0-52.0 Monocyte 7.2 % 2.0-10.0 Eosinophil 3.9 % 0.0-5.0 Basophil 0.9 % 0.0-4.0 Abs Neutrophils 5.2 K/uL 2.1-8.0 Abs Lymphocytes 1.9 K/uL 0.8-5.5 Abs Monocytes 0.6 K/uL 0.1-1.0 Abs Eosinophils 0.3 K/uL 0.0-0.5 Abs Basophils 0.1 K/uL 0.0-0.3 Hemoglobin A1c 09/22/2018 [facility] Hemoglobin A1c 6.9 % High 4.1-5.9 Estimated Average Glucose Calc 151 mg/dL High 71-140 Laboratory test finding 09/22/2018 [facility] TSH 4.66 uIU/mL 0.35-4.94 Direct LDL 128 mg/dL High 20-99 15 1 STY LEFT EYE 2 NO GROWTH: FINAL REPORT 3 NO GROWTH: FINAL REPORT 4 Note: Persistent reduction for 3 months or more in an eGFR <60 mL/min/1.73 m2 defines CKD. Patients with eGFR values >/=60 mL/min/1.73 m2 may also have CKD if evidence of persistent proteinuria is present. The original MDRD equation for estimated GFR is not valid for patients less than 18 years of age. Additional information may be found at www.kdoqi.org. 5 URINE, CLEAN CATCH 6 NO GROWTH: FINAL REPORT 7 NO GROWTH: FINAL REPORT 8 10/13 preOV 9 Updated reference range on new analyzer 10 Updated reference range on new analyzer 11 Concerning GFR Guidelines: Normal function or mild renal disease, if clinically at risk: >/= 60 mL/min Moderately decreased: 30-59 Severely decreased: 15-29 [...] drugs that are excreted by the kidneys. 12 Concerning GFR Guidelines for Americans: Normal function or mild renal disease, if clinically at risk: >/= 60 mL/min Moderately decreased: 30-59 Severely decreased: 15-29 Renal failure: <15 13 Updated Reference Range 14 Per NCEP ATP III Guidelines: Results lower than 40 mg/dL are suggestive of increased risk for coronary artery disease. Results > or = to 60 mg/dL are considered a negative risk factor. 15 Per NCEP ATP III Guidelines: Normal population: <130 Patients with medical conditions: CHD/DM Optimal range: <100 Borderline high: 130-159 High: 160-189 Very high: >189 Procedures Date Code Description Status 10/02/2018 84491 Brief Emotional/Behav Assessment W/ Scoring Doc Per Completed Standard Inst 10/02/2018 [id number] Mammogram Completed 2017 [id number] Colonoscopy Completed 01/01/2015 [id number] Mammogram Completed Medical Devices Description No Information Available Encounters Type Date Location Provider Dx Diagnosis Office Visit 12/08/2018 [facility] Mary Anne Devries MD L03.213 Periorbital 10:45a cellulitis E11.9 Type 2 diabetes mellitus without complications Office Visit 10/02/2018 1:00p [facility] Sinan Juarez MD E83.42 Hypomagnesemia I10 Essential (primary) hypertension E78.2 Mixed hyperlipidemia E11.9 Type 2 diabetes mellitus without complications G47.33 Obstructive sleep apnea (adult) (pediatric) M15.9 Polyosteoarthritis, unspecified I48.91 Unspecified atrial fibrillation F33.0 Major depressive disorder, recurrent, mild G25.0 Essential tremor E66.9 Obesity, unspecified K21.9 Gastro-esophageal reflux disease without esophagitis Z13.31 Encounter for screening for depression E55.9 Vitamin D deficiency, unspecified Z68.38 Body mass index (BMI) 38.0-38.9, adult Assessments Date Code Description Provider 02/14/2019 N90.7 Vulvar cyst Aranza Malik PA 02/14/2019 J45.30 Mild persistent asthma, uncomplicated Schedule, Laboratory 02/14/2019 G47.30 Sleep apnea, unspecified Schedule, Laboratory 02/14/2019 J30.89 Other allergic rhinitis Schedule, Laboratory 02/14/2019 E83.42 Hypomagnesemia Schedule, Laboratory 02/14/2019 I10 Essential (primary) hypertension Schedule, Laboratory 02/14/2019 E78.2 Mixed hyperlipidemia Schedule, Laboratory 02/14/2019 E11.9 Type 2 diabetes mellitus without Schedule, Laboratory complications 02/14/2019 E55.9 Vitamin D deficiency, unspecified Schedule, Laboratory 12/08/2018 L03.213 Periorbital cellulitis Mary Anne Devries MD 12/08/2018 E11.9 Type 2 diabetes mellitus without Mary Anne Devries MD complications 10/02/2018 E83.42 Hypomagnesemia Sinan Juarez MD 10/02/2018 I10 Essential (primary) hypertension Sinan Juarez MD 10/02/2018 E78.2 Mixed hyperlipidemia Sinan Juarez MD 10/02/2018 E11.9 Type 2 diabetes mellitus without Sinan Juarez MD complications 10/02/2018 G47.33 Obstructive sleep apnea (adult) Sinan Juarez MD (pediatric) 10/02/2018 M15.9 Polyosteoarthritis, unspecified Sinan Juarez MD 10/02/2018 I48.91 Unspecified atrial fibrillation Sinan Juarez MD 10/02/2018 F33.0 Major depressive disorder, recurrent, mild Sinan Juarez MD 10/02/2018 G25.0 Essential tremor Sinan Juarez MD 10/02/2018 E66.9 Obesity, unspecified Sinan Juarez MD 10/02/2018 K21.9 Gastro-esophageal reflux disease without Sinan Juarez MD esophagitis 10/02/2018 Z13.31 Encounter for screening for depression Sinan Juarez MD 10/02/2018 E55.9 Vitamin D deficiency, unspecified Sinan Juarez MD 10/02/2018 Z68.38 Body mass index (BMI) 38.0-38.9, adult Sinan Juarez MD 09/22/2018 I10 Essential (primary) hypertension Sinan Juarez MD 09/22/2018 I10 Essential (primary) hypertension Schedule, Laboratory 09/22/2018 E78.2 Mixed hyperlipidemia Sinan Juarez MD 09/22/2018 E78.1 Pure hyperglyceridemia [facility] 09/22/2018 E78.2 Mixed hyperlipidemia Schedule, Laboratory 09/22/2018 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, Sinan Juarez MD unspecified 09/22/2018 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, Schedule, Laboratory unspecified 09/22/2018 G47.33 Obstructive sleep apnea (adult) Sinan Juarez MD (pediatric) 09/22/2018 G47.33 Obstructive sleep apnea (adult) Schedule, Laboratory (pediatric) 09/22/2018 E11.9 Type 2 diabetes mellitus without Sinan Juarez MD complications 09/22/2018 E11.9 Type 2 diabetes mellitus without Schedule, Laboratory complications 09/22/2018 Z68.37 Body mass index (BMI) 37.0-37.9, adult Sinan Juarez MD 09/22/2018 Z68.37 Body mass index (BMI) 37.0-37.9, adult Schedule, Laboratory 09/22/2018 E78.2 Mixed hyperlipidemia [facility] 09/22/2018 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, [facility] unspecified 09/22/2018 E11.9 Type 2 diabetes mellitus without [facility] complications 09/22/2018 Z68.37 Body mass index (BMI) 37.0-37.9, adult [facility] Plan of Treatment Future Appointment(s):02/21/2019 11:30 am - Sinan Juarez MD at [facility]2018 - Aranza Malik PAN90.7 Vulvar cystComments:Discussed tx options - will monitor for nowCan try warm compressesCall with pain, drainage, redness,fevers, chills, change in cyst, any questions/concernsFollow up:Prn Functional Status Description No Information Available Mental Status Description No Information Available Referrals Description No Information Available
--- OUTSIDE RECORDS SUMMARY | 2019-03-18 08:49 | XMS REPORT | Summary of Care ---
:1940 Author Organization [facility] Address [address] [place] [address] Care Team Providers Name Role Phone Sinan Juarez MD Primary Care Provider Reason for Visit Reason Comments New Patient Right hip and right shoulder pain. Patient has had right hip and right shoulder pain for years. Patient is here requesting injections in both. Encounter Details Date Type Department Care Team Description 03/07/2019 Office Visit [facility] - Teofilo Villa MD Right shoulder pain, unspecified chronicity (Primary Dx); [place] [address] [facility] Trochanteric bursitis, right hip [address] [facility] [place] [address] [place] [address] [phone] Allergies Active Allergy Reactions Severity Noted Date Comments Sulfa Antibiotics Swelling 07/06/2013 documented as of this encounter (statuses as of 03/07/2019) Medications Medication Sig Dispensed Refills Start Date End Date Status fluticasone-salmeterol Take 1 INHL by 0 Active diskus (ADVAIR DISKUS) inhalation TWICE 500-50 MCG/DOSE DAILY. Inhalation AEROSOL POWDER, BREATH ACTIVATED Solifenacin Succinate Take by mouth. 0 Active (VESICARE) 10 MG Oral Tab nabumetone (RELAFEN) 500 Take 500 mg by 0 Active MG Oral Tab mouth TWICE DAILY. Losartan Potassium 100 Take by mouth. 0 Active MG Oral Tab amLodipine (NORVASC) 5 Take 5 mg by 0 Active MG Oral Tab mouth DAILY. loratadine Take 10 mg by 0 Active (CLARITIN,ALAVERT) 10 MG mouth DAILY. Oral Tab simvastatin (ZOCOR) 20 Take by mouth 0 Active MG Oral Tab EVERY BEDTIME. Clindamycin HCl 300 MG Take by mouth. 0 Active Oral Cap estrogens, conjugated Take 1.25 mg by 0 Active (PREMARIN) 1.25 MG Oral mouth DAILY. Tab pantoprazole (PROTONIX) Take 40 mg by 0 Active 40 MG Oral Tab EC mouth DAILY. PrednisoLONE 5 MG Oral Take 10 mg by 0 Active Tab mouth. metoprolol (TOPROL XL) Take 150 mg by 0 Active 50 MG Oral TABLET SR 24 mouth DAILY. HR fluconazole (DIFLUCAN) Take 150 mg by 0 Active 150 MG Oral Tab mouth DAILY. metFORMIN (GLUCOPHAGE Take 500 mg by 0 Active XR) 500 MG Oral TABLET mouth. SR 24 HR nystatin (MYCOSTATIN) 1 Appl by 0 Active 799509 UNIT/GM Apply Topical route externally Cream TWICE DAILY. Influenza Vac Split Inject within a 0 Active High-Dose (FLUZONE muscle. HIGH-DOSE IM) ciprofloxacin (CIPRO) Take 250 mg by 0 Active 250 MG Oral Tab mouth TWICE DAILY. Citalopram & Diet Manage Take by mouth. 0 Active Prod 10 MG Oral Misc ATENOLOL PO Take by mouth. 0 Active Aspirin 81 MG Oral Tab Take 81 mg by 0 Active mouth. methylPREDNISolone 1 mL by 1 mL 0 04/15/2014 Active acetate (DEPO-MEDROL) 80 Injection route MG/ML Injection ONE TIME. SuspensionIndications: Hip pain, left, Trochanteric bursitis of left hip methylPREDNISolone 1 mL by 1 mL 0 02/26/2015 Active acetate (DEPO-MEDROL) 80 Injection route MG/ML Injection ONE TIME. SuspensionIndications: Trochanteric bursitis of left hip methylPREDNISolone 1 mL by 1 mL 0 06/09/2015 Active acetate (DEPO-MEDROL) 80 Injection route MG/ML Injection ONE TIME. SuspensionIndications: Trochanteric bursitis, left hip glipiZIDE (GLUCOTROL) 10 Take 10 mg by 0 Active MG Oral Tab mouth TWICE DAILY. citalopram (CELEXA) 20 Take 20 mg by 0 Active MG Oral Tab mouth. famotidine (PEPCID) 20 Take 20 mg by 0 Active MG Oral Tab mouth TWICE DAILY. torsemide (DEMADEX) 10 Take 10 mg by 0 Active MG Oral Tab mouth DAILY. hydrOXYzine HCL (ATARAX) Take 25 mg by 0 Active 25 MG Oral Tab mouth THREE TIMES DAILY NEEDED. rivaroxaban (XARELTO) 20 Take by mouth. 0 Active MG Oral Tab documented as of this encounter (statuses as of 03/07/2019) Active Problems Problem Noted Date Hip pain, left 04/02/2014 Trochanteric bursitis of left hip 04/02/2014 Hip pain, right 07/06/2013 documented as of this encounter (statuses as of 03/07/2019) Immunizations Name Administration Dates Next Due Depo Medrol (80mg) 06/09/2015, 02/26/2015, 04/15/2014, 04/02/2014, 01/01/2014, 01/01/2014, 07/06/2013 documented as of this encounter Social History Tobacco Use Types Packs/Day Years Used Date Never Smoker Smokeless Tobacco: Never Used Alcohol Use Drinks/Week oz/Week Comments No Sex Assigned at Date Recorded Not on file Job Start Date Occupation Industry Not on file Not on file Not on file Travel History Travel Start Travel End No recent travel history available. documented as of this encounter Last Filed Vital Signs Vital Sign Reading Time Taken Comments Blood Pressure 120/65 03/07/2019 1:04 PM EDT Pulse 85 03/07/2019 1:04 PM EDT Temperature - - Respiratory Rate - - Oxygen Saturation - - Inhaled Oxygen Concentration - - Weight 95.3 kg (210 lb) 03/07/2019 1:04 PM EDT Height 165.1 cm (5' 5") 03/07/2019 1:04 PM EDT Body Mass Index 34.95 03/07/2019 1:04 PM EDT documented in this encounter Progress Notes Teofilo Villa MD - 03/07/2019 1:00 PM EDT Name: Jadyn Correa : 1940 Date of Service: 03/07/2019 Referring Provider: Jeffeyr Primary Care Provider: Sinan Juarez Chief Complaint Patient presents with New Patient Right hip and right shoulder pain. Patient has had right hip and right shoulder pain for years. Patient is here requesting injections in both. Past Medical History: Diagnosis Date Hypertension Seasonal allergies Past Surgical History: Procedure Laterality Date US LIVER/GALL BLADDER HYSTERECTOMY, ABDOMINAL [place] FEMUR/KNEE SURG UNLISTED bilateral knee replacements [place] RECONSTRUCT SCAPHOID CARPAL W PROSTHESIS Current Outpatient Medications Medication Sig amLodipine (NORVASC) 5 MG Oral Tab Take 5 mg by mouth DAILY. Aspirin 81 MG Oral Tab Take 81 mg by mouth. ATENOLOL PO Take by mouth. ciprofloxacin (CIPRO) 250 MG Oral Tab Take 250 mg by mouth TWICE DAILY. Citalopram & Diet Manage Prod 10 MG Oral Misc Take by mouth. citalopram (CELEXA) 20 MG Oral Tab Take 20 mg by mouth. Clindamycin HCl 300 MG Oral Cap Take by mouth. estrogens, conjugated (PREMARIN) 1.25 MG Oral Tab Take 1.25 mg by mouth DAILY. famotidine (PEPCID) 20 MG Oral Tab Take 20 mg by mouth TWICE DAILY. fluconazole (DIFLUCAN) 150 MG Oral Tab Take 150 mg by mouth DAILY. fluticasone-salmeterol diskus (ADVAIR DISKUS) 500-50 MCG/DOSE Inhalation AEROSOL POWDER, BREATH ACTIVATED Take 1 INHL by inhalation TWICE DAILY. glipiZIDE (GLUCOTROL) 10 MG Oral Tab Take 10 mg by mouth TWICE DAILY. hydrOXYzine HCL (ATARAX) 25 MG Oral Tab Take 25 mg by mouth THREE TIMES DAILY NEEDED. Influenza Vac Split High-Dose (FLUZONE HIGH-DOSE IM) Inject within a muscle. loratadine (CLARITIN,ALAVERT) 10 MG Oral Tab Take 10 mg by mouth DAILY. Losartan Potassium 100 MG Oral Tab Take by mouth. metFORMIN (GLUCOPHAGE XR) 500 MG Oral TABLET SR 24 HR Take 500 mg by mouth. methylPREDNISolone acetate (DEPO-MEDROL) 80 MG/ML Injection Suspension 1 mL by Injection route ONE TIME. methylPREDNISolone acetate (DEPO-MEDROL) 80 MG/ML Injection Suspension 1 mL by Injection route ONE TIME. methylPREDNISolone acetate (DEPO-MEDROL) 80 MG/ML Injection Suspension 1 mL by Injection route ONE TIME. metoprolol (TOPROL XL) 50 MG Oral TABLET SR 24 HR Take 150 mg by mouth DAILY. nabumetone (RELAFEN) 500 MG Oral Tab Take 500 mg by mouth TWICE DAILY. nystatin (MYCOSTATIN) 569771 UNIT/GM Apply externally Cream 1 Appl by Topical route TWICE DAILY. pantoprazole (PROTONIX) 40 MG Oral Tab EC Take 40 mg by mouth DAILY. PrednisoLONE 5 MG Oral Tab Take 10 mg by mouth. rivaroxaban (XARELTO) 20 MG Oral Tab Take by mouth. simvastatin (ZOCOR) 20 MG Oral Tab Take by mouth EVERY BEDTIME. Solifenacin Succinate (VESICARE) 10 MG Oral Tab Take by mouth. torsemide (DEMADEX) 10 MG Oral Tab Take 10 mg by mouth DAILY. No current facility-administered medications for this visit. Allergies Allergen Reactions Sulfa Antibiotics Swelling Social History Socioeconomic History Marital status: Spouse name: Not on file Number of children: Not on file Years of education: Not on file Highest education level: Not on file Occupational History Not on file Social Needs Financial resource strain: Not on file Food insecurity: Worry: Not on file Inability: Not on file Transportation needs: Medical: Not on file Non-medical: Not on file Tobacco Use Smoking status: Never Smoker Smokeless tobacco: Never Used Substance and Sexual Activity Alcohol use: No Drug use: Not on file Sexual activity: Not on file Lifestyle Physical activity: Days per week: Not on file Minutes per session: Not on file Stress: Not on file Relationships Social connections: Talks on phone: Not on file Gets together: Not on file Attends congregation service: Not on file Active member of club or organization: Not on file Attends meetings of clubs or organizations: Not on file Relationship status: Not on file Intimate partner violence: Fear of current or ex partner: Not on file Emotionally abused: Not on file Physically abused: Not on file Forced sexual activity: Not on file Other Topics Concern Not on file Social History Narrative Not on file History reviewed. No pertinent family history. ROS: Review of systems intake completed by clinical staff. I have reviewed and agree with their documentation. 79-year-old woman with multiple medical problems seen by me greater than 3 years ago presents with right proximal lateral hip pain as well as right shoulder pain. No history of injury. History of right and left trochanteric bursitis helped by injection in the past. Shoulder pain has been getting increasingly symptomatic over the past couple of months. She has pain on overhead motion. Pain worse at night. Limited in adding medication because she is on so many already. Physical exam reveals an elderly woman in no acute distress. Alert and oriented. Hip tender at greater trochanteric bursa. Range of motion of the hip causes discomfort. Negative straight leg raising. Grossly neurovascular status intact right lower extremity. Right shoulder appears grossly normal. Positive impingement sign. No weakness. Negative instability testing. Grossly neurovascular status right upper extremity intact. X-rays of right hip show degenerative arthritis and trochanteric changes. X- ray of the right shoulder shows eburnation and bony changes greater tuberosity. Impression: Right trochanteric bursitis. Right shoulder pain/impingement. Procedure: In a sterile manner, I injected the right trochanteric bursa with 40 mg of Depo-Medrol and 3 cc of 1% lidocaine. Next, I injected the right shoulder subacromial space with 40 mg of Depo-Medrol and 3 cc of 1% lidocaine. Impression: ICD-9-CM ICD-10-CM 1. Right shoulder pain, unspecified chronicity 719.41 M25.511 XR SHOULDER MIN 2 VIEWS RIGHT (STANDARD) 2. Trochanteric bursitis, right hip 726.5 M70.61 Author: Teofilo Villa MD 03/07/2019 13:19 This record contains sections created with voice recognition software. It has been electronically signed. A reasonable attempt at proofreading has been made. Please call with any questions or corrections. documented in this encounter Plan of Treatment Name Type Priority Associated Diagnoses Date/Time XR SHOULDER MIN 2 Imaging Routine Right shoulder pain, 03/07/2019 1:04 PM VIEWS RIGHT (STANDARD) unspecified chronicity EDT Name Type Priority Associated Diagnoses Order Schedule XR SHOULDER MIN 2 Imaging Routine Right Shoulder Pain, Expected: 03/07/2019 , VIEWS RIGHT (STANDARD) Unspecified Chronicity Expires: 03/06/2020 Health Maintenance Due Date Last Done Comments MEDICARE ANNUAL WELLNESS VISIT 1940 DEPRESSION SCREENING 1950 HIV SCREENING 1953 ZOSTER IMMUNIZATION SERIES (1 of 2) 01/08/1988 FALL RISK ASSESSMENT 2003 PNEUMOCOCCAL 65+YRS (1 of 2 - 2003 PCV13) INFLUENZA VACCINE (#1) 2019 HPV IMMUNIZATION SERIES Aged Out No longer eligible based on patient's age to complete this topic MENINGOCOCCAL VACCINE IMM Aged Out No longer eligible based on patient's age to complete this topic documented as of this encounter Results Not on filedocumented in this encounter Visit Diagnoses Diagnosis Right shoulder pain, unspecified chronicity - Primary Trochanteric bursitis, right hip documented in this encounter Insurance Payer Benefit Plan / Subscriber ID Effective Dates Phone Address Type Group [employer] EXCELLUS xxxxxxxxxxxx 2015-Present [employer] MEDICARE BLUE PPO [phone]) Guarantor Name Account Type Relation to Date of Phone Billing Patient Address Jadyn Correa Personal/Family 1940 [address] [facility] (Home) [place] [phone] [place], [place] (Work) [id number] documented as of this encounter
[2019-03-18 09:47] VITALS: BP 150/84
--- NOTE | 2019-03-18 09:48 | UC ---
Complaint Female HPI - HPI Summary HPI Summary: 79-year-old woman comes in with a chief complaint of lower abdominal pain dysuria increased urinary frequency. This all started last night. Patient reports this feels like a UTI. No complaint of fevers. No flank pain. - History Of Current Complaint Chief Complaint: UCGU Stated Complaint: URINARY Time Seen by Provider: 03/18/19 09:37 Hx Last Menstrual Period: n/a Pain Intensity: 6 - Allergies/Home Medications Allergies/Adverse Reactions: Allergies Allergy/AdvReac Type Severity Reaction Status Date / Time azithromycin Allergy Swelling Verified 03/18/19 09:20 Of Face,Lips,& Throat Cephalosporins Allergy Swelling Verified 03/18/19 09:20 Of Face,Lips,& Throat clarithromycin Allergy Swelling Verified 03/18/19 09:20 Of Face,Lips,& Throat fentanyl Allergy Swelling Verified 03/18/19 09:20 lisinopril Allergy Unknown Verified 03/18/19 09:20 Reaction Details losartan Allergy Swelling Verified 03/18/19 09:20 Of Face,Lips,& Throat ofloxacin Allergy Swelling Verified 03/18/19 09:20 silver sulfadiazine Allergy Unknown Verified 03/18/19 09:20 Reaction Details soybean Allergy Unknown Verified 03/18/19 09:20 Reaction Details Sulfa (Sulfonamide Allergy Swelling Verified 03/18/19 09:20 Antibiotics) Of Face,Lips,& Throat tramadol Allergy Unknown Verified 11/21/18 10:31 Reaction Details Home Medications: Home Medications Albuterol 2.5MG/3ML (0.083%)* [Ventolin 2.5 MG/3 ML NEB.SMA*] 2.5 mg INH Q4H PRN 03/18/19 [History Confirmed 03/18/19] Albuterol HFA INHALER* [Ventolin HFA Inhaler*] 2 puff INH Q4H PRN 03/18/19 [ History Confirmed 03/18/19] Cholestyramine Resin* [Questran*] 4 gm PO DAILY 03/18/19 [History Confirmed ] Magnesium Oxide TAB* [MagOx 400 TAB*] 400 mg PO DAILY 03/18/19 [History Confirmed 03/18/19] Oxybutynin XL TAB* [Ditropan XL TAB*] 5 mg PO DAILY 03/18/19 [History Confirmed 03/18/19] PMH/Surg Hx/FS Hx/Imm Hx Previously Healthy: Yes Endocrine History: Diabetes, Dyslipidemia Cardiovascular History: Hypertension, Congestive Heart Failure Other History Of: Anticoagulant Therapy - since 06/08/2018 Dr Parry - Surgical History Surgical History: Yes Surgery Procedure, Year, and Place: ONE KNEE REPLACED(2004,[facility] [place]) ONE KNEE REPLACED IN [place]; parathyroid(2009, [facility]); gallbladder LONG TIME AGO. LEON CARPAL TUNNEL RELEASE; HYSTERECTOMY - Family History Known Family History: Positive: Hypertension - Social History Alcohol Use: None Substance Use Type: None Smoking Status (MU): Never Smoked Tobacco Have You Smoked in the Last Year: No - Immunization History Most Recent Influenza Vaccination: 2016 Most Recent Tetanus Shot: UTD Most Recent Pneumonia Vaccination: UTD Review of Systems All Other Systems Reviewed And Are Negative: Yes Constitutional: Positive: Negative Skin: Positive: Negative Eyes: Positive: Negative ENT: Positive: Negative Respiratory: Positive: Negative Cardiovascular: Positive: Negative Gastrointestinal: Positive: Abdominal Pain Genitourinary: Positive: Dysuria, Frequency, Urgency Motor: Positive: Negative Neurovascular: Positive: Negative Musculoskeletal: Positive: Negative Neurological: Positive: Negative Psychological: Positive: Negative Is Patient Immunocompromised?: No Physical Exam Triage Information Reviewed: Yes Appearance: Well-Appearing, No Pain Distress, Well-Nourished Vital Signs: Initial Vital Signs Temp 97 F 03/18/19 09:20 Pulse 74 03/18/19 09:20 Resp 18 03/18/19 09:20 Pulse Ox 97 03/18/19 09:20 Vital Signs Reviewed: Yes Eye Exam: Normal Eyes: Positive: Conjunctiva Clear Neck: Positive: Supple Respiratory: Positive: Lungs clear, Normal breath sounds, No respiratory distress Cardiovascular: Positive: RRR Abdomen Description: Positive: Soft, Other: - Mild tenderness to palpation in the suprapubic region midline lower abdomen. Negative: CVA Tenderness (R), CVA Tenderness (L) Musculoskeletal: Positive: Strength Intact, ROM Intact Neurological: Positive: Alert Psychological: Positive: Age Appropriate Behavior Skin Exam: Normal Complaint Female Dx - Course Course Of Treatment: Patient's symptoms and urine results are consistent with UTI. I discussed alternative causes of her symptoms to include diverticulitis or another abdominal pathology. I did discuss with her that if she did not improve or worsens she needs reevaluation in the emergency department. - Differential Dx/Diagnosis Provider Diagnosis: UTI (urinary tract infection), Abdominal pain Discharge ED - Sign-Out/Discharge Documenting (check all that apply): Patient Departure All imaging exams completed and their final reports reviewed: No Studies - Discharge Plan Condition: Stable Disposition: HOME Prescriptions: Nitrofurantoin Monohyd/M-Cryst [Macrobid 100 mg Capsule] 100 mg PO BID #14 cap Patient Education Materials: Urinary Tract Infection in Women (ED), Acute Abdominal Pain (ED) Referrals: Sinan Juarez MD [Primary Care Provider] - Additional Instructions: FOLLOW UP WITH YOUR DOCTOR. GO TO THE EMERGENCY DEPARTMENT IF YOU DO NOT IMPROVE OR WORSEN; FEVER, PAIN, YOU FEEL ILL OR ANY QUESTIONS OR CONCERNS. - Billing Disposition and Condition Condition: STABLE Disposition: Home
== END 2019-03-18 09:52 | disposition home or self-care (01) ==
LOC: UCCORT 08:38
DX: N39.0 Urinary tract infection, site not specified (principal); R10.30 Lower abdominal pain, unspecified; Z88.1 Allergy status to other antibiotic agents; E11.9 Type 2 diabetes mellitus without complications; I11.0 Hypertensive heart disease with heart failure; I50.9 Heart failure, unspecified; Z79.01 Long term (current) use of anticoagulants
CPT/HCPCS: 81003; 87077; 87086; 99212; G0463

== ENCOUNTER 2019-04-21 07:52 | Emergency (ER) | payer MEDICARE ==
--- OUTSIDE RECORDS SUMMARY | 2019-04-21 08:00 | XMS REPORT | Continuity of Care Document ---
:1940 External Reference #:[id number] Author Name Tracee Jaeger NP (transmitted by agent of provider Chelsy King) Address [address] [place] [address] Care Team Providers Name Role Phone Nasim Chiang MD - Internal Medicine Care Team Information Cota Sinan Juarez MD - Family Care Team Information [place]ota [phone] Medicine Arun Allen MD - Care Team Information [place] [phone] Cardiovascular Disease Dee Juarez NP - Family Care Team Information [place] [phone] Medicine Problems Description No Information Available Social History Type Date Description Comments Sex [...] Use Start: Unknown Patient has never smoked Recreational Drug Use Denies Drug Use Smoking Status Reviewed: 04/18/19 Patient has never smoked Exercise Type/Frequency Does not exercise Allergies, Adverse Reactions, Alerts Active Allergies Reaction Severity Comments Date Sulfa Antibiotics swelling 10/25/2012 Sulfa Antibiotics 09/18/2018 Silver Sulfadiazine 10/25/2012 Prevacid 10/25/2012 Zithromax 10/25/2012 Biaxin 10/25/2012 Ceftin 10/25/2012 Ofloxacin 10/25/2012 Tramadol 05/12/2016 Medications Active Medications SIG Qnty Indications Ordering Date Provider Dicyclomine HCL take one capsule 120caps Tracee Jaeger, 04/18/2019 10mg by mouth four DEPUTY K 9 Capsules times a day Hydrocodone-Acetaminop TK 1/2 Or 1 T PO Q Unknown hen 8 H prn For Severe 5-325mg Tablets P MDD 3 Magnesium-Oxide 1 by mouth every Unknown day 400(241.3mg) mg Tablets Clotrimazole use three times a Unknown Anti-Fungal day 1% Cream Nystatin-Triamcinolone use three times a Unknown day until clear 972525-8.1Unit/GM-% Cream Desloratadine 1 by mouth every Unknown 5mg Tablets day Amiodarone HCL 1 by mouth every Unknown 200mg day Tablets Xarelto 1 by mouth every Unknown 20mg Tablets day/ just stared six months ago Estropipate 2 by mouth every 30tabs Unknown [...] tablet daily. 90tabs Unknown 81mg Tablets DR Vit D 1 qd Unknown 1000U Medications Administered in Office Medication SIG Qnty Indications Ordering Provider Date Depomedrol 40MG Laura Curtis M.D. 11/22/2018 Injection Depomedrol 40MG Laura Curtis M.D. 09/28/2017 Injection Depomedrol 40MG Laura Curtis M.D. 04/20/2017 Injection Depomedrol 40MG Ranjana Zarco RPA-Delores 04/07/2017 Injection Depomedrol 40MG Laura Curtis M.D. 12/16/2016 Injection Depomedrol 40MG Laura Curtis M.D. 05/12/2016 Injection Depomedrol 40MG Laura Curtis M.D. 04/14/2016 Injection Depomedrol 40MG Laura Curtis M.D. 02/04/2016 Injection Depomedrol 80MG Laura Curtis M.D. 04/30/2015 Injection Depomedrol 80MG Laura Curtis M.D. 11/13/2014 Injection Depomedrol 80MG Laura Curtis M.D. 07/10/2014 Injection Depomedrol 80MG Laura Curtis M.D. 10/24/2013 Injection Depomedrol 80MG Laura Curtis M.D. 10/24/2013 Injection Depomedrol 80MG Laura Curtis M.D. 07/11/2013 Injection Gtomedrol 80MG Laura Curtis M.D. 04/11/2013 Injection Depomedrol 80MG Laura Curtis M.D. 01/01/2013 Injection Denisarol 80MG Laura Curtis M.D. 10/25/2012 Injection Immunizations Description No Information Available Vital Signs Date Vital Result Comment 04/18/2019 10:47am Height 65 inches 5'5" Weight 224.00 lb Heart Rate 82 /min BP Systolic 150 mmHg BP Diastolic 77 mmHg Body Temperature 97.5 F O2 % BldC Oximetry 95 % BMI (Body Mass Index) 37.3 kg/m2 11/22/2018 1:20pm Height 65 inches 5'5" Weight 210.00 lb BP Systolic 141 mmHg BP Diastolic 88 mmHg Respiratory Rate 18 /min Body Temperature 96.9 F Pain Level 4 BMI (Body Mass Index) 34.9 kg/m2 Results Description No Information Available Procedures Date Code Description Status 11/22/2018 04416 Inject Tendon Sheath Or Ligament Aponeurosis Eg Plantar Completed Fascia Medical Devices Description No Information Available Encounters Description No Information Available Assessments Date Code Description Provider 11/22/2018 M65.342 Trigger finger, left ring finger Laura Curtis M.D. Plan of Treatment Future Appointment(s):05/02/2019 10:15 am - Tracee Jaeger NP at [facility] Gastroenterology Functional Status Description No Information Available Mental Status Description No Information Available Referrals Description No Information Available
--- OUTSIDE RECORDS SUMMARY | 2019-04-21 08:00 | XMS REPORT | Continuity of Care Document ---
:1940 External Reference #:[id number] Author Name Sinan Perry MD Address [address] [place] [id number] Care Team Providers Name Role Phone Hubert Bassett MD - Cardiovascular Care Team Information Merchandise Clerk [phone] Disease [facility] - Allergy & Care Team Information Merchandise Clerk Immunology Frankie Parry - Cardiovascular Care Team Information Merchandise Clerk [phone] Disease Sinan Perry MD - Family Care Team Information Merchandise Clerk [phone] Care Team Information Merchandise Clerk [phone] Wellington Crowell MD - Allergy & Care Team Information Merchandise Clerk Unavailable Immunology Problems Active Problems Provider Date Allergic rhinitis Sinan Perry MD Onset: 01/08/2014 Disorder of magnesium metabolism Sinan Perry MD Onset: 05/07/2013 Mixed hyperlipidemia Sinan Perry MD Onset: 10/11/2012 Urinary incontinence Sinan Perry MD Onset: 04/11/2012 Type 2 diabetes mellitus Sinan Perry MD Onset: 10/20/2010 Vitamin D deficiency Sinan Perry MD Onset: 12/16/2009 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 Irritable bowel syndrome Onset: 07/10/2005 Peripheral venous insufficiency Onset: 07/10/2005 Lumbosacral spondylosis without myelopathy Onset: 07/10/2005 Hormone replacement therapy Sinan Perry MD Onset: 10/28/2004 Hypoxemia Sinan Perry MD Onset: 07/05/2014 Obstructive sleep apnea syndrome Sinan Perry MD Onset: 02/19/2015 Essential tremor Sinan Perry MD Onset: 02/19/2015 Essential hypertension Sinan Perry MD Onset: 06/16/2015 Mild recurrent major depression Sinan Perry MD Onset: 03/24/2016 Gastroesophageal reflux disease Sinan Perry MD Onset: 10/28/2004 Atrial fibrillation Sinan Perry MD Onset: 10/02/2018 Social History Type Date [...] Medications Active Medications SIG Qnty Indications Ordering Provider Date Amiodarone HCL 1/2 by mouth 45tabs I48.0 Digiovanna, 04/09/2019 200mg every day MD Sinan Tablets I48.91 Nitrofurantoin 1 pill by mouth 10caps R10.9 Digiovanna, 04/09/2019 Macrocrystal twice a day for 5 MD Sinan 100mg days with food Capsules Vitamin D3 1 by mouth every otc E55.9 Digiovanna, 02/21/2019 2000Unit day MD Sinan Capsules Albuterol Sulfate HFA Inhale 2 Puffs By 42.5units J45.40 Digiovanna, 02/14 Mouth Every 4 MD Sinan 108(90Base) mcg/Act Hours as Needed Aerosol Cholestyramine Take One Scoop In 1134units K58.9 Digiovanna, 10/18/2018 4GM/Dose Fluid By Mouth MD Sinan Powder Once A Day Freestyle Lite Blood Check Finger 1units E11.9 Digiovanna, 10/13/2018 Glucose Monitoring Sticks Daily MD Sinan System Device Magnesium Oxide 1 by mouth every OTC E83.42 Digiovandarrick, 10/02/2018 400mg day MD Sinan Tablets Xarelto take 1 tablet by 90tabs I48.91 Ann, 06/02/2018 20mg Tablets mouth every day MD Sinan Hydrocodone-Acetamino 1/2 or 1 tab by 90tabs Ann, 05/16/2018 phen mouth every 8 MD Sinan 5-325mg Tablets hours as needed for severe pain Citalopram take 1 tablet by 90tabs F33.0 Ann, 10/17/2017 Hydrobromide mouth every day MD Sinan 20mg Tablets Estropipate 2 pills by mouth 180tabs Z79.890 Ann, 04/01/2017 0.75mg once a day MD Sinan Tablets Clotrimazole 1 application to 15gm R21 Aranza Malik, 01/27/2017 1% Cream affected area PA twice daily Fluticasone 1 spray each 1units J06.9 Ann, 11/26/2016 Propionate nostril daily Mia, [employer]ER 50mcg/Act Suspension J30.9 Freestyle Lite Test use as directed 100units E11.9 Sinan Perry, twice a day Strips Amlodipine Besylate take 1 tablet by 90tabs I10 Sinan Perry, 10/21 mouth every day 5mg Tablets Aspirin 1 by mouth every OTC E11.9 Sinan Perry, 03/10/2016 81mg Tablets day MD IGNACIO Glipizide ER take 1 tablet by 90tabs E11.65 Sinan Perry, 2014 10mg mouth every day Tablets ER 24HR E11.9 Metformin HCL Take 1 Tablet By 180tabs E11.65 Sinan Perry, 2014 850mg Mouth Twice Daily Tablets With A Meal. Maximum Daily Dose Is 2. Maximum Daily Dose Is 2 E11.9 Lancets For Use each am to 50units E11.65 Sinan Perry, 11/19/2014 Glucometer check fasting blood sugar E11.9 Test Strips For Check blood sugar 50units E11.65 Sinan Perry, Glucometer each am - fasting E11.9 Nystatin-Triamcinolone apply to affected 60gm B37.2 Aranza Mailk, 10/11 area bid-tid [place] 795474-3.1Unit/GM-% Ointment Albuterol Sulfate 1 vial via 75ml J20.9 Ann, 04/18/2014 (2.5mg/3ML) 0.083% nebulizer every 4 MD Sinan Nebulizer hours as needed wheezing J45.40 Desloratadine 1 by mouth T78.3xxD Unknown 5mg Tablets every day Levocetirizine 1 by mouth 90tabs T78.3xxD Ann, Dihydrochloride every day MD Sinan 5mg Tablets J30.9 Epinephrine inject if needed 2units T78.3xxD Digdaniele, 0.3mg/0.3ML then call 911. MD Sinan Solution Auto-Inject Diphenhydramine HCL 1 by mouth every Unknown 25mg 6 hours as needed Capsules itching Oxybutynin Chloride ER take one tablet 90tabs R32 Ann, 5mg by mouth every MD Sinan Tablets ER 24HR day Prednisone 4 tabs po qd x Unknown 10mg Tablets 3d, 3 tabs po qd x 3 days,2 tabs po qd x 3days, then 1 tab Dailyuntil Gone Torsemide take 1 tablet by 90tabs I10 Ann, 10mg Tablets mouth every day MD Sinan R60.9 Famotidine take 1 tablet by 90tabs K21.9 Sinan Perry, 20mg Tablets mouth every day Hydroxyzine HCL take 1 tablet by 90tabs Sinan Perry, 25mg mouth every night Tablets at bedtime Atorvastatin Calcium take 1 tablet by E78.2 Frankie Parry 10mg mouth every Tablets evening E78.0 Nitrofurantoin Monohydrate/Macrocrystals TK 1 C PO bid Unknown 100mg Capsules History Medications Amoxicillin/Clavulanate 1 by mouth 20tabs L03.213 Jaycob, 12/08/2018 - Potassium twice daily MD Mary Anne 02/14/2019 875-125mg Tablets x 10 days Immunizations CPT Code Status Date Vaccine Reaction Lot # 33356 Given 10/11/2018 Shingrix (Shingles) Zoster Vaccine HZV, Recombinant, Subunit, Adj 92782 Given 03/22/2018 Fluzone Highdose Age 65 And Over [facility] Preservative & Antibiotic Free 76203 Given 03/24/2017 Fluzone Highdose Age 65 And Over Preservative & Antibiotic Free 36759 Given 02/19/2015 Prevnar 13 Pneumococal Conjugate [facility]# [id number] Vaccine 26566 Given 05/06/2013 Afluria Or Fluvirin Flu Vac Intramuscular 06387 Given 04/11/2012 Afluria Or Fluvirin Flu Vac Intramuscular 08518 Given 04/05/2011 Afluria Or Fluvirin Flu Vac Intramuscular 80907 Given 03/23/2010 Afluria Or Fluvirin Flu Vac Intramuscular 17949 Given 04/11/2008 Afluria Or Fluvirin Flu Vac Intramuscular 04974 Given 03/29/2007 Afluria Or Fluvirin Flu Vac Intramuscular 52568 Given 05/16/2006 Afluria Or Fluvirin Flu Vac Intramuscular 64667 Given 12/29/2005 Tetanus And Diptheria Toxoid 7 Years And Older Preserv Free 70450 Given 04/22/2005 Pneumococcal 23 Immunization Adult Or Immunosuppressed Patient 93029 Given 04/22/2005 Pneumococcal 23 Immunization Adult Or Immunosuppressed Patient 25787 Given 04/22/2005 Afluria Or Fluvirin Flu Vac Intramuscular 73184 Given 04/22/2005 Afluria Or Fluvirin Flu Vac Intramuscular 85172 Given 04/30/2004 Afluria Or Fluvirin Flu Vac Intramuscular Vital Signs Date Vital Result Comment 04/09/2019 3:15pm Body Temperature 97.5 F Heart Rate 74 /min BP Systolic 120 mmHg BP Diastolic 80 mmHg Respiratory Rate 18 /min 03/22/2019 9:36am BP Systolic 130 mmHg 82 BP Diastolic 86 mmHg 82 Respiratory Rate 18 /min Results Test Date Facility Test Result H/L Range Note Laboratory test 10/14/2 [facility] Urine Culture <pending> finding 019 Automated blood N2N/CCD Import Automated blood 0.4 0.0-5.0 immature 019 immature granulocyte count granulocyte count as perc as percentage of total leukocytes Automated blood N2N/CCD Import Automated blood 0.0 < 10/ 100 nucleated 019 nucleated WBC erythrocyte count erythrocyte count as per as percentage of total leukocytes Automated blood N2N/CCD Import Automated blood 1.66 1.0-4.0 lymphocyte count 019 lymphocyte count (number/volume) (number/volume) Absolute neutrophil N2N/CCD Import Absolute 4.73 1.8-7.0 count 019 neutrophil count Blood monocytes N2N/CCD Import Blood monocytes 0.63 0.3-0.9 automated count 019 automated count (number/volume) (number/volume) Automated blood N2N/CCD Import Automated blood 0.27 0.0-0.5 eosinophil count 019 eosinophil count Automated blood N2N/CCD Import Automated blood 0.03 immature 019 immature granulocyte count granulocyte count (number (number/volume) Automated blood N2N/CCD Import Automated blood 0.05 0.0-0.1 basophil count 019 basophil count (number/volume) (number/volume) Automated blood N2N/CCD Import Automated blood 0.00 nucleated 019 nucleated erythrocyte count erythrocyte count (count (count/volume) Serum or plasma N2N/CCD Import Serum or plasma 133 High 74-106 glucose measurement 019 glucose (mass/volume) measurement (mass/volume) Serum or plasma N2N/CCD Import Serum or plasma 34 High 7-18 urea nitrogen 019 urea nitrogen measurement measurement (mass/vo (mass/volume) Serum or plasma N2N/CCD Import Serum or plasma 1.0 0.6-1.3 creatinine 019 creatinine measurement measurement (mass/volum (mass/volume) Estimated N2N/CCD Import Estimated 57 >60 glomerular 019 glomerular filtration rate filtration rate (GFR) non-Afr (GFR) non- GFR/Bsa pred.black N2N/CCD Import GFR/Bsa pred.black >60 >60 SerPl MDRD-ArVRat 019 SerPl MDRD-ArVRat Serum or plasma N2N/CCD Import Serum or plasma 34.0 urea 019 urea nitrogen/creatinine nitrogen/creatinin mass rati e mass ratio Sodium SerPl-sCnc N2N/CCD Import Sodium SerPl-sCnc 137 136-145 019 Serum or plasma N2N/CCD Import Serum or plasma 3.9 3.5-5.1 potassium 019 potassium measurement measurement Serum or plasma N2N/CCD Import Serum or plasma 104 98-107 chloride 019 chloride measurement measurement Co2 SerPl-sCnc N2N/CCD Import Co2 SerPl-sCnc 29 21-32 019 Serum or plasma N2N/CCD Import Serum or plasma 4 Low 8-16 anion gap 019 anion gap Serum or plasma N2N/CCD Import Serum or plasma 9.2 8.5-10.1 calcium measurement 019 calcium (mass/volume) measurement (mass/volume) Serum or plasma N2N/CCD Import Serum or plasma 7.0 6.4-8.2 protein measurement 019 protein (mass/volume) measurement (mass/volume) Serum or plasma N2N/CCD Import Serum or plasma 3.4 3.4-5.0 albumin measurement 019 albumin (mass/volume) measurement (mass/volume) Serum globulin N2N/CCD Import Serum globulin 3.6 1.9-4.3 measurement by 019 measurement by calculation calculation (mass/vo (mass/volume) Serum or plasma N2N/CCD Import Serum or plasma 0.9 albumin/globulin 019 albumin/globulin mass ratio mass ratio Serum or plasma N2N/CCD Import Serum or plasma 0.3 0.2-1.0 total bilirubin 019 total bilirubin measurement (mass/ measurement (mass/volume) Serum or plasma N2N/CCD Import Serum or plasma 22 15-37 aspartate 019 aspartate aminotransferase aminotransferase measure measurement (enzymatic activity/volume) Serum or plasma N2N/CCD Import Serum or plasma 40 12-78 alanine 019 alanine aminotransferase aminotransferase measureme measurement (enzymatic activity/volume) Serum or plasma N2N/CCD Import Serum or plasma 109 45-117 alkaline 019 alkaline phosphatase phosphatase measurement ( measurement (enzymatic activity/volume) Serum or plasma N2N/CCD Import Serum or plasma 182 56-289 lipase measurement 019 lipase measurement (enzymatic acti (enzymatic activity/volume) Automated urine N2N/CCD Import Automated urine Yellow Yellow color determination 019 color determination Appearance of Urine N2N/CCD Import Appearance of Clear Clear 019 Urine Urine glucose N2N/CCD Import Urine glucose Negative Negative detection by 019 detection by automated test automated test strip strip Urine bilirubin N2N/CCD Import Urine bilirubin Negative Negative detection by 019 detection by automated test automated test strip strip Urine ketone N2N/CCD Import Urine ketone Negative Negative detection by 019 detection by automated test automated test strip strip Urine specific N2N/CCD Import Urine specific 1.022 1.010-1.03 gravity measurement 019 gravity 0 by refractometr measurement by refractometry Hgb Ur Ql N2N/CCD Import Hgb Ur Ql Negative 0-2 Strip.auto 019 Strip.auto Urine pH N2N/CCD Import Urine pH 5.5 Low 6.5-7.5 measurement by 019 measurement by automated test automated test strip strip Urine protein N2N/CCD Import Urine protein Trace Negative detection by 019 detection by automated test automated test strip strip Urine urobilinogen N2N/CCD Import Urine urobilinogen <2.0 < 2.0 detection by 019 detection by automated test str automated test strip Urine nitrite N2N/CCD Import Urine nitrite Negative Negative detection by 019 detection by automated test automated test strip strip Urine leukocyte N2N/CCD Import Urine leukocyte Trace High Negative esterase detection 019 esterase detection by automated te by automated test strip Urine erythrocyte N2N/CCD Import Urine erythrocyte 3-5 0-2 count by 019 count by computer-assisted computer-assisted micro microscopy (number/high power field) Automated urine N2N/CCD Import Automated urine 3-5 0-5 sediment leukocyte 019 sediment leukocyte count by micros count by microscopy (number/high power field) Urine squamous N2N/CCD Import Urine squamous Many None Seen epithelial cells 019 epithelial cells detection by autom detection by automated method Automated basophil N2N/CCD Import Automated basophil 0.7 0.0- 1.1 % 019 % Automated N2N/CCD Import Automated 3.7 0.0-6.6 eosinophil % 019 eosinophil % Automated monocyte N2N/CCD Import Automated monocyte 8.5 4.3- 13.2 % 019 % Automated blood N2N/CCD Import Automated blood 22.5 20.0-42.0 lymphocytes/100 019 lymphocytes/100 leukocytes leukocytes Automated blood N2N/CCD Import Automated blood 64.2 40.4-72.8 neutrophils/100 019 neutrophils/100 leukocytes leukocytes Automated blood N2N/CCD Import Automated blood 10.4 8.9-12.4 platelet mean 019 platelet mean volume measurement volume measurement Automated N2N/CCD Import Automated 13.8 11.7-14.4 erythrocyte 019 erythrocyte distribution width distribution width ratio ratio Automated N2N/CCD Import Automated 42.9 36-47 erythrocyte 019 erythrocyte distribution width distribution width Automated blood N2N/CCD Import Automated blood 291 155-360 platelet count 019 platelet count (count/volume) (count/volume) Automated N2N/CCD Import Automated 33.2 30.8-34.3 erythrocyte mean 019 erythrocyte mean corpuscular corpuscular hemoglobin hemoglobin concentration measurement (mass/volume) Automated N2N/CCD Import Automated 28.4 25.9-32.7 erythrocyte mean 019 erythrocyte mean corpuscular corpuscular hemoglobin hemoglobin (mass per erythrocyte) Automated N2N/CCD Import Automated 85.5 80.9-99.0 erythrocyte mean 019 erythrocyte mean corpuscular volume corpuscular volume (MCV (MCV) measurement Hct VFr Bld Auto N2N/CCD Import Hct VFr Bld Auto 38.2 36.0-46.1 019 Blood hemoglobin N2N/CCD Import Blood hemoglobin 12.7 11.6-15.8 measurement 019 measurement (mass/volume) (mass/volume) Automated leukocyte N2N/CCD Import Automated 7.4 3.1-10.7 count 019 leukocyte count (number/volume) (number/volume) Poc Urinalysis [facility] Poc Glucose, Urine Negative Negative 019 Poc Bilirubin, Urine Negative Negative Poc Ketone, Urine Negative Negative Poc Specific [place], Urine <= 1.005 Low 1.010-1.030 Poc Blood, Urine Trace-intact Abnormal Negative Poc pH, Urine 6.5 Normal 5-9 Poc Protein, Urine Negative Negative Poc Urobilinogen, Urine 0.2 Negative Poc Nitrite, Urine Negative Negative Poc Leukocytes, Urine 2+ Abnormal Negative Poc Color, Urine Yellow Poc Clarity, Urine Clear 1 Urine Culture And 03/18/2019 [facility] Urine Culture SEE RESULT 2, 3 Sensitivities BELOW Drugs Of 02/21/2019 [facility] Amphetamines, NEGATIVE <1000 4 Abuse,Urine-FCMG Urine ng/mL Barbiturates,Urine NEGATIVE <200 ng/mL Benzodiazepines, Urine NEGATIVE <200 ng/mL Bupernorphrine/Norbu,Urine NEGATIVE <10 ng/mL Cocaine Metabolites,Urine NEGATIVE <300 ng/mL Methadone,Urine NEGATIVE <300 ng/mL Opiates,Urine POSITIVE Abnormal <300 ng/mL Oxycodone,Urine NEGATIVE <100 ng/mL Phencyclidine,Urine NEGATIVE <25 ng/mL Cannabinoids,Urine NEGATIVE <50 ng/mL Laboratory test finding 02/14/2019 [facility] Tryptase 13.8 ug/L High 5 Laboratory test finding 02/14/2019 [facility] Complement C4 30 mg/dL (10-40 ) 6, 7 Hannah Screen With 02/14/2019 [facility] Hannah Screen NEGATIVE Negative Reflex-FCMG dsDNA IgG <0.50 IU/mL 0.00-9.00 8 Thyroid Auto 02/14/2019 [facility] Thyroid Peroxidase <4.00 IU/mL 0.00- 25.00 9 Antibodies Antibody Thyroglobulin AutoAB <12.00 IU/mL 0.00-40.00 10 Laboratory test finding 02/14/2019 [facility] TSH 5.40 uIU/mL High 0.35- 4.94 CBC with Auto Diff-fcmg 02/14/2019 [facility] WBC 7.4 K/uL 4.1-11.0 RBC 4.47 M/uL 4.00-5.40 Hemoglobin 12.5 gm/dL 12.0-16.0 Hematocrit 37.8 % 36.0-47.0 MCV 84.6 fL 80.0-97.0 MCH 27.9 pg 27.0-32.0 MCHC 33.0 g/dL 32.0-36.0 RDW 14.8 % High 11.5-14.5 PLT Count 292 K/ul 140-400 MPV 8.2 FL 7.1-10.7 Neutrophil 69.6 % 35.0-75.0 Lymphocyte 18.6 % 16.0-52.0 Monocyte 6.8 % 2.0-10.0 Eosinophil 4.0 % 0.0-5.0 Basophil 1.0 % 0.0-4.0 Abs Neutrophils 5.1 K/uL 2.1-8.0 Abs Lymphocytes 1.4 K/uL 0.8-5.5 Abs Monocytes 0.5 K/uL 0.1-1.0 Abs Eosinophils 0.3 K/uL 0.0-0.5 Abs Basophils 0.1 K/uL 0.0-0.3 Laboratory test 02/14/2019 [facility] Vitamin D 25 23 ng/mL Low 30-100 11, 12 finding Hydroxy Hemoglobin A1c 02/14/2019 [facility] Hemoglobin A1c 6.4 % High 4.1-5.9 Estimated Average Glucose Calc 137 mg/dL 71-140 Lipid Treatment 02/14/2019 [facility] Cholesterol 236 mg/dL High 50-199 Triglycerides 300 mg/dL High 30-200 HDL 46 mg/dL 35-85 13 Chol/ HDL Ratio 5.2 ratio 3.7-5.6 VLDL 60 mg/dL High 2-29 LDL (Calc) 131 mg/dL High 20-99 14 Alt 25 U/L 3-42 Ast 15 U/L 8-42 Basic (BMP) 02/14/2019 [facility] Sodium 137 mmol/L 135-146 15 Potassium 4.3 mmol/L 3.5-5.2 Chloride# 101 mmol/L 97-110 16 Carbon Dioxide 26 mmol/L 24-34 Glucose 143 mg/dL High 70-105 BUN 17 mg/dL 6-26 Creatinine 0.9 mg/dL 0.5-1.4 Calcium 9.5 mg/dL 8.5-10.5 17 Female Egfr 64 >60 18 Male Egfr 82 >60 19 Anion Gap 10 mmol/L 5-15 20 Laboratory test 02/14/2019 [facility] Magnesium 1.8 mg/dL 1.5-2.7 finding Blood Culture 12/09/2018 [facility] Blood Culture NO GROWTH: 21, 22 (315)- - Aerobic FINAL <SEE NOTE> Blood Culture Anaerobic NO GROWTH: FINAL <SEE NOTE> 23 Ua RFX Micro & 12/09/2018 [facility] Urine Color YELLOW Yellow Culture II (315)- - Urine Clarity CLEAR Clear Urine Glucose - Dipstick NEGATIVE mg/dL Negative Urine Bilirubin - Dipstick NEGATIVE Negative Urine Ketone NEGATIVE mg/dL Negative Urine Specific [place] 1.010 Normal 1.010-1.030 Urine Blood NEGATIVE Negative Urine PH 5.5 Low 6.5-7.5 Urine Protein - Dipstick NEGATIVE mg/dL Negative Urine Urobilinogen - Dipstick 0.2 E.U./dL Normal 0.2-1.0 Urine Nitrite - Dipstick NEGATIVE Negative Urine Leuk Esterase NEGATIVE Negative Source: URINE, CLEAN CAT <SEE NOTE> 24 CBS W/Automated 12/09/2018 [facility] White Blood 11.2 K/ uL High 3.1-10.7 [...] 40.4-72.8 Lymph % 16.6 % Low 20.0-42.0 Clark % 7.1 % Normal 4.3-13.2 Eo% 2.9 % Normal 0.0-6.6 Bas% 0.5 % Normal 0.0-1.1 Immature Grans 0.4 % Normal 0.0-5.0 NRBC % 0.0 /100WBC < 10/ 100 WBC Neut# 8.12 K/uL High 1.8-7.0 Lymph # 1.86 K/uL Normal 1.0-4.0 Clark # 0.79 K/uL Normal 0.3-0.9 Eos # 0.32 K/uL Normal 0.0-0.5 Baso # 0.06 K/uL Normal 0.0-0.1 Immature Grans Absolute 0.04 K/uL NRBC # 0.00 K/uL Lactic Acid 12/09/2018 [facility] Lactic Acid 1.1 mmol/L Normal 0.4-1.9 (315)- - Lab Reflex >2.0 for Sepsis? Y Comprehensive Metabolic 12/09/2018 [facility] Glucose 140 mg/dL High 74-106 Panel (315)- - BUN 43 mg/dL High 7-18 Creatinine 1.2 mg/dL Normal 0.6-1.3 Glom Filtration Rate, Estimate 46 mL/min >60 If 56 mL/min >60 25 BUN/Creat 35.8 ratio Sodium 138 mmol/L Normal [...] 12-78 Alkaline Phosphatase 110 U/L Normal 45-117 Blood Culture 12/09/2018 [facility] Blood Culture NO GROWTH: FINAL 26 (315)- - Aerobic <SEE NOTE> Blood Culture Anaerobic NO GROWTH: FINAL <SEE NOTE> 27 1 [employer] Maintainer: [id number] SEE RESULT BELOW Name: MEHUL CORREA : [address]: Benjamin Victoria MD Acct: [id number] Unit: [id number] AGE: 79 Location: [facility] Re03/18/19 SEX: F Status: DEP ER SPEC: [id number] PRATEEK: 03/18/[address] [facility] [address]: Benjamin Victoria MD REQ: [id number] RECD: 03/18/19 STATUS: TAWNY ANDREW DR: Sinan Perry Jr, MD _ SOURCE: URINE SPDESC: ORDERED: Urine Culture COMMENTS: [id number] QUERIES: Urine Source: Random Procedure Result Reported Site Urine Culture Final 03/19/19- 1625 ML Organism 1 STREP GROUP B [place] Count 10-25,000 (Moderate) CFU/ML Organism 2 NORMAL TATIANA [place] Count 10-25,000 (Moderate) CFU/ML Susceptibility testing of penicillins and other B-lactams approved by FDA for treatment of Streptococcus pyogenes (Group A Strep) and Streptococcus agalactiae (Group B Strep) is not necessary for clinical purposes and need not be done routinely, since as with vancomycin, resistant strains have not been recognized. (CLSI K213-B34;p.66) Positive isolates will be saved for one week. Please call the Microbiology Laboratory if further susceptibility testing is needed. * [facility] - Main Lab . END OF REPORT DEPARTMENT OF PATHOLOGY, [address] [place] [address] Merrick Zhong M.D. Director [facility] # [id number] 4 02/26: APPROPRIATE + 5 Reference range: <=10.9 Performed by [facility], [address] [place] [id number] [email or web address], Librado Zuñiga MD, Lab. Director Unless otherwise specified, testing performed by [facility] [place] [address] 6 FAXED 02/18 7 Unless otherwise specified, testing performed by [facility] [address] [place] [id number] 8 Interpretation: <0.5 -9 IU/ml Negative 10-15 IU/ml Equivocal >15.0 IU/ml Positive 9 Interpretation: 0-25 Negative 26-35 Equivocal >35 Positive 10 Interpretation: 0-40 Negative 41-60 Equivocal >60 Positive 11 02/12 preOV 12 Clinical Guidelines for recommended serum 25(OH)Vitamin D Deficient at less than 20 ng/mL Insufficient at 20 to <30 ng/mL Sufficient at 30-100 ng/mL Toxicity at greater than 100 ng/mL 13 Per NCEP ATP III Guidelines: Results lower than 40 mg/dL are suggestive of increased risk for coronary artery disease. Results > or = to 60 mg/dL are considered a negative risk factor. 14 Per NCEP ATP III Guidelines: Normal Population <130 Patients with medical conditions: CHD/DM Optimal: <100 Borderline high: 130-159 High: 160-189 Very high: >189 15 Updated reference range on new analyzer 16 Updated reference range on new analyzer 17 Updated reference range 10-25-2018 18 Concerning GFR Guidelines for Americans: Normal function or mild renal disease, if clinically at risk: >/= 60 mL/min Moderately decreased: 30-59 Severely decreased: 15-29 Renal failure: <15 There is reduced accuracy above 60ml/min/1.73 m squared, but the numeric value may be clinically useful in the near 60 range 19 Concerning GFR Guidelines: Normal function or mild renal disease, if clinically at risk: >/= 60 mL/min Moderately decreased: 30-59 Severely decreased: 15-29 Renal failure: <15 There is reduced accuracy above 60ml/min/1.73 m squared, but the numeric value may be clinically useful in the near 60 range Glomerular Filtration Rate (GFR) is estimated based on the CKD-EPI equation, which assumes a steady state for [...] drugs that are excreted by the kidneys. 20 Updated Reference Range 21 STY LEFT EYE 22 NO GROWTH: FINAL REPORT 23 NO GROWTH: FINAL REPORT 24 URINE, CLEAN CATCH 25 Note: Persistent reduction for 3 months or more in an eGFR <60 mL/min/1.73 m2 defines CKD. Patients with eGFR values >/=60 mL/min/1.73 m2 may also have CKD if evidence of persistent proteinuria is present. The original MDRD equation for estimated GFR is not valid for patients less than 18 years of age. Additional information may be found at [email or web address]. 26 NO GROWTH: FINAL REPORT 27 NO GROWTH: FINAL REPORT Procedures Date Code Description Status 10/02/2018 [id number] Mammogram Completed 2017 [id number] Colonoscopy Completed 01/01/2015 [id number] Mammogram Completed Medical Devices Description No Information Available Encounters Type Date Location Provider Dx Diagnosis Office Visit 03/22/2019 [facility] Sinan Perry, N39.0 Urinary tract 9:45a infection, site not specified R10.30 Lower abdominal pain, unspecified E11.9 Type 2 diabetes mellitus without complications Office Visit 02/14/2019 10:00a [facility] Aranza Malik PA N90.7 Vulvar cyst Office Visit 12/08/2018 10:45a [facility] Mary Anne Devries MD L03.213 Periorbital cellulitis E11.9 Type 2 diabetes mellitus without complications Assessments Date Code Description Provider 04/09/2019 R10.9 Unspecified abdominal pain Sinan Perry MD 03/22/2019 N39.0 Acute urinary tract infection Sinan Perry MD 03/22/2019 R10.30 Abdominal pain Sinan Perry MD 03/22/2019 E11.9 Type 2 diabetes mellitus without Sinan Perry MD complications 02/21/2019 I10 Essential (primary) hypertension Sinan Perry MD 02/21/2019 E78.2 Mixed hyperlipidemia Sinan Perry MD 02/21/2019 E11.9 Type 2 diabetes mellitus without Sinan Perry MD complications 02/21/2019 G47.33 Obstructive sleep apnea (adult) Sinan Perry MD (pediatric) 02/21/2019 E55.9 Vitamin D deficiency, unspecified Sinan Perry MD 02/21/2019 M15.9 Polyosteoarthritis, unspecified Sinan Perry MD 02/21/2019 E83.42 Hypomagnesemia Sinan Perry MD 02/21/2019 J30.89 Other allergic rhinitis Sinan Perry MD 02/21/2019 G25.0 Essential tremor Sinan Perry MD 02/21/2019 K21.9 Gastro-esophageal reflux disease without Sinan Perry MD esophagitis 02/21/2019 F33.0 Major depressive disorder, recurrent, mild Sinan Perry MD 02/21/2019 I48.91 Unspecified atrial fibrillation Sinan Prery MD 02/21/2019 R94.6 Thyroid function tests abnormal Sinan Perry MD 02/21/2019 Z79.899 Long-term current use of drug therapy Sinan Perry MD 02/21/2019 Z79.899 Other bed bug exterminator (current) drug therapy [facility] 02/14/2019 J45.30 Mild persistent asthma, uncomplicated Sinan Perry MD 02/14/2019 N90.7 Vulvar cyst Aranza Malik PA 02/14/2019 J45.30 Mild persistent asthma, uncomplicated Schedule, Laboratory 02/14/2019 G47.30 Sleep apnea, unspecified Sinan Perry MD 02/14/2019 G47.30 Sleep apnea, unspecified Schedule, Laboratory 02/14/2019 J30.89 Other allergic rhinitis Sinan Perry MD 02/14/2019 J30.89 Other allergic rhinitis Schedule, Laboratory 02/14/2019 E83.42 Hypomagnesemia Sinan Perry MD 02/14/2019 E83.42 Hypomagnesemia Schedule, Laboratory 02/14/2019 I10 Essential (primary) hypertension Sinan Perry MD 02/14/2019 I10 Essential (primary) hypertension Schedule, Laboratory 02/14/2019 E78.2 Mixed hyperlipidemia Sinan Perry MD 02/14/2019 E78.2 Mixed hyperlipidemia Schedule, Laboratory 02/14/2019 E11.9 Type 2 diabetes mellitus without Sinan Perry MD complications 02/14/2019 E11.9 Type 2 diabetes mellitus without Schedule, Laboratory complications 02/14/2019 E55.9 Vitamin D deficiency, unspecified Sinan Perry MD 02/14/2019 E55.9 Vitamin D deficiency, unspecified Schedule, Laboratory 02/14/2019 E83.42 Hypomagnesemia [facility] 02/14/2019 E78.2 Mixed hyperlipidemia [facility] 02/14/2019 E11.9 Type 2 diabetes mellitus without [facility] complications 02/14/2019 E55.9 Vitamin D deficiency, unspecified [facility] 02/14/2019 J45.30 Mild persistent asthma, uncomplicated [facility] 02/14/2019 G47.30 Sleep apnea, unspecified [facility] 02/14/2019 J30.89 Other allergic rhinitis [facility] 12/08/2018 L03.213 Periorbital cellulitis Mary Anne Devries MD 12/08/2018 E11.9 Type 2 diabetes mellitus without Mary Anne Devries MD complications Plan of Treatment Future Appointment(s):06/11/2019 9:10 am - Schedule, Laboratory at [facility]2018 11:30 am - Sinan Perry MD at [facility]04/23/2019 10:00 am - Schedule, Laboratory at [facility]04/09/2019 - Sinan Perry, MDR10.9 Unspecified abdominal painNew Medication:Nitrofurantoin Macrocrystal 100 mg - 1 pill by mouth twice a day for 5 days with food Functional Status Description No Information Available Mental Status Description No Information Available Referrals Description No Information Available
--- OUTSIDE RECORDS SUMMARY | 2019-04-21 08:01 | XMS REPORT | Continuity of Care Document ---
:1940 External Reference #:[id number] Author Name Sinan Perry MD Address [address] [place] [id number] Care Team Providers Name Role Phone Hubert Bassett MD - Cardiovascular Care Team Information [employer] [phone] Disease [facility] - Allergy & Care Team Information [employer] [phone] Immunology Frankie Parry - Cardiovascular Care Team Information [employer] [phone] Disease Sinan Perry MD - Family Care Team Information [employer] [phone] Care Team Information [employer] [phone] Wellington Crowell MD - Allergy & Care Team Information [employer] Unavailable Immunology Problems Active Problems Provider Date [...] Perry MD Onset: 10/28/2004 Atrial fibrillation Sinan Peryr MD Onset: 10/02/2018 Social History Type Date [...] Medications SIG Qnty Indications Ordering Date Provider Vitamin D3 1 by mouth every otc [...] Xarelto take 1 tablet by 90tabs I48.91 Digiovanna, 06/02/2018 20mg Tablets mouth every day MD [...] 1units J06.9 Ann, 11/26/2016 Propionate nostril daily JOEY Bellamy 50mcg/Act Suspension J30.9 Freestyle Lite Test use [...] Nystatin-Triamcinolone apply to affected 60gm B37.2 Aranza Malik, 10/11 area bid-tid [place] 448113-0.1Unit/GM-% Ointment Albuterol Sulfate 1 vial via 75ml J20.9 Ann, 04/18/2014 (2.5mg/3ML) 0.083% nebulizer every 4 MD Sinan Nebulizer hours as needed wheezing J45.40 Nitrofurantoin TK 1 C PO bid Unknown Monohydrate/Macrocrystals 100mg Capsules Amiodarone HCL 1 By Mouth Once I48.0 Frankie Parry 100mg Tablets A Day I48.91 Atorvastatin Calcium take 1 tablet by mouth E78.2 Frankie Parry 10mg Tablets every evening E78.0 Hydroxyzine HCL take 1 tablet by 90tabs Sinan Perry, 25mg mouth every night Tablets at bedtime Famotidine take 1 tablet by 90tabs K21.9 Sinan Perry, 20mg Tablets mouth every day Torsemide take 1 tablet by 90tabs I10 Sinan Perry, 10mg Tablets mouth every day R60.9 Prednisone [...] Code Status Date Vaccine Reaction Lot # 48522 Given 10/11/2018 Shingrix (Shingles) Zoster Vaccine HZV, Recombinant, Subunit, Adj 43788 Given 03/22/2018 Fluzone Highdose Age 65 And Over [facility] Preservative & Antibiotic Free 18553 Given 03/24/2017 Fluzone Highdose Age 65 And Over Preservative & Antibiotic Free 58441 Given 02/19/2015 Prevnar 13 Pneumococal Conjugate [facility]# 3118-8012-94 [id number] Vaccine 56807 Given 05/06/2013 Afluria Or Fluvirin Flu Vac Intramuscular 57651 Given 04/11/2012 Afluria Or Fluvirin Flu Vac Intramuscular 15265 Given 04/05/2011 Afluria Or Fluvirin Flu Vac Intramuscular 00954 Given 03/23/2010 Afluria Or Fluvirin Flu Vac Intramuscular 05338 Given 04/11/2008 Afluria Or Fluvirin Flu Vac Intramuscular 26128 Given 03/29/2007 Afluria Or Fluvirin Flu Vac Intramuscular 32807 Given 05/16/2006 Afluria Or Fluvirin Flu Vac Intramuscular 26182 Given 12/29/2005 Tetanus And Diptheria Toxoids For Adult Use-preservative free 28870 Given 04/22/2005 Pneumococcal 23 Immunization Adult Or Immunosuppressed Patient 98763 Given 04/22/2005 Pneumococcal 23 Immunization Adult Or Immunosuppressed Patient 97509 Given 04/22/2005 Afluria Or Fluvirin Flu Vac Intramuscular 19664 Given 04/22/2005 Afluria Or Fluvirin Flu Vac Intramuscular 22335 Given 04/30/2004 Afluria Or Fluvirin Flu Vac Intramuscular Vital Signs Date Vital Result Comment 03/22/2019 9:36am BP Systolic 130 mmHg 82 BP Diastolic 86 mmHg 82 Respiratory Rate 18 /min 02/21/2019 11:19am Weight 225.00 lb with shoes Heart Rate 88 /min After rescue inhaler BP Systolic 142 mmHg BP Diastolic 90 mmHg Respiratory Rate 22 /min O2 % BldC Oximetry 95 % Ra- After rescue inhaler- 91% Prior Results Test Date Facility Test Result H/L Range Note Automated blood N2N/CCD Import Automated blood 0.4 [...] 019 leukocyte count (number/volume) (number/volume) Poc Urinalysis [facility] Poc Glucose, Urine Negative Negative 019 Poc Bilirubin, Urine Negative Negative Poc Ketone, Urine Negative Negative Poc Specific [place], Urine <= 1.005 Low 1.010-1.030 Poc Blood, Urine Trace-intact Abnormal Negative Poc pH, Urine 6.5 Normal 5-9 Poc Protein, Urine Negative Negative Poc Urobilinogen, Urine 0.2 Negative Poc Nitrite, Urine Negative Negative Poc Leukocytes, Urine 2+ Abnormal Negative Poc Color, Urine Yellow Poc Clarity, Urine Clear 1 Urine Culture And 03/18/2019 [facility] Urine Culture SEE RESULT 2, 3 [...] Basophils 0.1 K/uL 0.0-0.3 Laboratory test 02/14/2019 [facility] 25 23 ng/mL Low 30-100 11, 12 finding Hydro[facility] 6.4 % High 4.1-5.9 Estimated [...] 1.8 mg/dL 1.5-2.7 finding Blood Culture 12/09/2018 [facility] Blood Culture NO GROWTH: 21, (315)- - Aerobic FINAL <SEE NOTE> Blood Culture Anaerobic NO GROWTH: FINAL <SEE NOTE> 23 Comprehensive Metabolic 12/09/2018 [facility] Glucose 140 mg/dL High 74-106 Panel (315)- - BUN 43 mg/dL High 7-18 Creatinine 1.2 mg/dL Normal 0.6-1.3 Glom Filtration Rate, Estimate 46 mL/min >60 If 56 mL/min >60 24 BUN/Creat 35.8 ratio Sodium 138 mmol/L Normal [...] 110 U/L Normal 45-117 Lactic Acid 12/09/2018 [facility] Lactic Acid 1.1 mmol/L Normal 0.4-1.9 (315)- - Lab Reflex >2.0 for Sepsis? Y CBS W/Automated 12/09/2018 [facility] White Blood 11.2 K/ uL [...] 40.4-72.8 Lymph % 16.6 % Low 20.0-42.0 Luce % 7.1 % Normal 4.3-13.2 Eo% 2.9 % Normal 0.0-6.6 Bas% 0.5 % Normal 0.0-1.1 Immature Grans 0.4 % Normal 0.0-5.0 NRBC % 0.0 /100WBC < 10/ 100 WBC Neut# 8.12 K/uL High 1.8-7.0 Lymph # 1.86 K/uL Normal 1.0-4.0 Luce # 0.79 K/uL Normal 0.3-0.9 Eos # 0.32 K/uL Normal 0.0-0.5 Baso # 0.06 K/uL Normal 0.0-0.1 Immature Grans Absolute 0.04 K/uL NRBC # 0.00 K/uL Ua RFX Micro & 12/09/2018 [facility] Urine Color YELLOW Yellow Culture II (315)- - Urine Clarity CLEAR Clear Urine Glucose - Dipstick NEGATIVE mg/dL Negative Urine Bilirubin - Dipstick NEGATIVE Negative Urine Ketone NEGATIVE mg/dL Negative Urine Specific [place] 1.010 Normal 1.010-1.030 Urine Blood NEGATIVE Negative Urine PH 5.5 Low 6.5-7.5 Urine Protein - Dipstick NEGATIVE mg/dL Negative Urine Urobilinogen - Dipstick 0.2 E.U./dL Normal 0.2-1.0 Urine Nitrite - Dipstick NEGATIVE Negative Urine Leuk Esterase NEGATIVE Negative Source: URINE, CLEAN CAT <SEE NOTE> 25 Blood Culture 12/09/2018 [facility] Blood Culture NO GROWTH: FINAL 26 (315)- - Aerobic <SEE NOTE> Blood Culture Anaerobic NO GROWTH: FINAL <SEE NOTE> 27 Basic (BMP) 09/22/2018 [facility] Sodium 138 mmol/L 135-146 28, 29 Potassium 4.3 mmol/L 3.5-5.2 Chloride# 101 mmol/L 97-110 30 Carbon Dioxide 26 mmol/L 24-34 Glucose 151 mg/dL High 70-105 BUN 27 mg/dL High 6-26 Creatinine 1.0 mg/dL 0.5-1.4 Calcium 9.4 mg/dL 8.5-10.2 Non Pamela Egfr 56 Low >60 31 Pamela Egfr >60 >60 32 Anion Gap 11 mmol/L 5-15 33 Lipid Treatment 09/22/2018 [facility] Cholesterol 238 mg/dL High 50-199 Triglycerides 420 mg/dL High 30-200 HDL 43 mg/dL 35-85 34 Chol/ HDL Ratio 5.5 ratio 3.7-5.6 Alt [...] mg/dL High 71-140 Laboratory test finding 09/22/2018 [facility] TSH 4.66 uIU/mL 0.35-4.94 Direct LDL 128 mg/dL High 20-99 35 1 [place]: [id number] SEE RESULT BELOW Name: MEHUL CORREA : [address]: eBnjamin Victoria MD Acct: [id number] Unit: [id number] AGE: 79 Location: [facility] Re03/18/19 SEX: F Status: DEP ER SPEC: [id number] PRATEEK: 03/18/19-[address] [facility] [address]: Benjamin Victoria MD REQ: [id number] RECD: 03/18/19-134 STATUS: TAWNY ANDREW DR: Sinan Perry Jr, MD _ SOURCE: URINE SPDESC: ORDERED: Urine Culture COMMENTS: [id number] QUERIES: Urine Source: Random Procedure Result Reported Site Urine Culture Final 03/19/19- 1625 ML Organism 1 STREP GROUP B Zwingle Count 10-25,000 (Moderate) CFU/ML Organism 2 NORMAL TATIANA Zwingle Count 10-25,000 (Moderate) CFU/ML Susceptibility testing of penicillins and other B-lactams approved by FDA for treatment of Streptococcus pyogenes (Group A Strep) and Streptococcus agalactiae (Group B Strep) is not necessary for clinical purposes and need not be done routinely, since as with vancomycin, resistant strains have not been recognized. (CLSI W218-M27;p.66) Positive isolates will be saved for one week. Please call the Microbiology Laboratory if further susceptibility testing is needed. * [facility] - Main Lab . END OF REPORT DEPARTMENT OF PATHOLOGY, [address] [place] [address] Merrick Zhong M.D. Director [facility] # [id number] 4 02/26: APPROPRIATE + 5 Reference range: <=10.9 Performed by [facility], [address] [place] [id number] [email or web address], Librado Zuñiga MD, Lab. Director Unless otherwise specified, testing performed by [facility] [place] [address] 6 FAXED 02/18 7 Unless otherwise specified, testing performed by [facility] [place] [address] 8 Interpretation: <0.5 -9 IU/ml Negative 10-15 [...] REPORT 23 NO GROWTH: FINAL REPORT 24 Note: Persistent reduction for 3 months or more in an eGFR <60 mL/min/1.73 m2 defines CKD. Patients with eGFR values >/=60 mL/min/1.73 m2 may also have CKD if evidence of persistent proteinuria is present. The original MDRD equation for estimated GFR is not valid for patients less than 18 years of age. Additional information may be found at [email or web address]. 25 URINE, CLEAN CATCH 26 NO GROWTH: FINAL REPORT 27 NO GROWTH: FINAL REPORT 28 10/13 preOV 29 Updated reference range on new analyzer 30 Updated reference range on new analyzer 31 Concerning GFR Guidelines: Normal function or mild [...] drugs that are excreted by the kidneys. 32 Concerning GFR Guidelines for Americans: Normal function or mild renal disease, if clinically at risk: >/= 60 mL/min Moderately decreased: 30-59 Severely decreased: 15-29 Renal failure: <15 33 Updated Reference Range -2017 34 Per NCEP ATP III Guidelines: Results lower than 40 mg/dL are suggestive of increased risk for coronary artery disease. Results > or = to 60 mg/dL are considered a negative risk factor. 35 Per NCEP ATP III Guidelines: Normal population: <130 Patients with medical conditions: CHD/DM Optimal range: <100 Borderline high: 130-159 High: 160-189 Very high: >189 Procedures Date Code Description Status 10/02/2018 91707 Brief Emotional/Behav Assessment W/ Scoring Doc Per Completed Standard Inst 10/02/2018 [id number] Mammogram Completed 2017 [id number] Colonoscopy Completed 01/01/2015 [id number] Mammogram Completed Medical Devices Description No Information Available Encounters Type Date Location Provider Dx Diagnosis Office Visit 02/14/2019 [facility] Aranza Malik PA N90.7 Vulvar cyst 10:00a Office Visit 12/08/2018 [facility] Mary Anne Devries MD L03.213 Periorbital 10:45a cellulitis E11.9 Type 2 diabetes mellitus without complications Office Visit 10/02/2018 1:00p [facility] Sinan Perry MD E83.42 Hypomagnesemia I10 Essential (primary) hypertension [...] 38.0-38.9, adult Assessments Date Code Description Provider 03/22/2019 N39.0 Acute urinary tract infection Sinan [...] MD 02/21/2019 I48.91 Unspecified atrial fibrillation Sinan Perry MD 02/21/2019 R94.6 Thyroid function tests abnormal Sinan Perry MD 02/21/2019 Z79.899 Long-term current use of drug therapy Sinan Perry MD 02/21/2019 Z79.899 Other halfway (current) drug therapy [facility] 02/14/2019 [...] Devries MD complications 10/02/2018 E83.42 Hypomagnesemia Sinan Perry MD 10/02/2018 I10 Essential (primary) hypertension Sinan Perry MD 10/02/2018 E78.2 Mixed hyperlipidemia Sinan Perry MD 10/02/2018 E11.9 Type 2 diabetes mellitus without Sinan Perry MD complications 10/02/2018 G47.33 Obstructive sleep apnea (adult) Sinan Perry MD (pediatric) 10/02/2018 M15.9 Polyosteoarthritis, unspecified Sinan Perry MD 10/02/2018 I48.91 Unspecified atrial fibrillation Sinan Perry MD 10/02/2018 F33.0 Major depressive disorder, recurrent, mild Sinan Perry MD 10/02/2018 G25.0 Essential tremor Sinan Perry MD 10/02/2018 E66.9 Obesity, unspecified Sinan Perry MD 10/02/2018 K21.9 Gastro-esophageal reflux disease without Sinan Perry MD esophagitis 10/02/2018 Z13.31 Encounter for screening for depression Sinan Perry MD 10/02/2018 E55.9 Vitamin D deficiency, unspecified Sinan Perry MD 10/02/2018 Z68.38 Body mass index (BMI) 38.0-38.9, adult Sinan Perry MD 09/22/2018 I10 Essential (primary) hypertension Sinan Perry MD 09/22/2018 I10 Essential (primary) hypertension Schedule, Laboratory 09/22/2018 E78.2 Mixed hyperlipidemia Sinan Perry MD 09/22/2018 E78.1 Pure hyperglyceridemia [facility] 09/22/2018 E78.2 Mixed hyperlipidemia Schedule, Laboratory 09/22/2018 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, Sinan Perry MD unspecified 09/22/2018 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, Schedule, Laboratory unspecified 09/22/2018 G47.33 Obstructive sleep apnea (adult) Sinan Perry MD (pediatric) 09/22/2018 G47.33 Obstructive sleep apnea (adult) Schedule, Laboratory (pediatric) 09/22/2018 E11.9 Type 2 diabetes mellitus without Sinan Perry MD complications 09/22/2018 E11.9 Type 2 diabetes mellitus without Schedule, Laboratory complications 09/22/2018 Z68.37 Body mass index (BMI) 37.0-37.9, adult Sinan Perry MD 09/22/2018 Z68.37 Body mass index (BMI) 37.0-37.9, adult Schedule, Laboratory 09/22/2018 E78.2 Mixed hyperlipidemia [facility] 09/22/2018 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, [facility] unspecified 09/22/2018 E11.9 Type 2 diabetes mellitus without [facility] complications 09/22/2018 Z68.37 Body mass index (BMI) 37.0-37.9, adult [facility] Plan of Treatment Future Appointment(s):06/11/2019 9:10 am - Schedule, Laboratory at [facility]2018 11:30 am - Sinan Perry MD at [facility]04/23/2019 10:00 am - Schedule, Laboratory at [facility]03/22/2019 - Sinan Perry MDN39.0 Acute urinary tract infectionFollow up:Follow up as ujprjecuuK68.30 Abdominal painFollow up:.E11.9 Type 2 diabetes mellitus without complications Functional Status Description No Information Available Mental Status Description No Information Available Referrals Description No Information Available
[2019-04-21 08:42] VITALS: BP 157/80
--- NOTE | 2019-04-21 08:57 | UC ---
Respiratory Complaint HPI - HPI Summary HPI Summary: 79 yo woman with chronic a fib, with 2-3 day history of cough without upper respiratory symptoms. Increased respiratory rate noted by her daughter. No hx of asthma, but has an albuterol nebulizer which she uses off and on, currently using twice daily. (past PFT's in [facility] reported as normal). Subjective fever, and feels out of breath. Recent ER visit for abdominal pain with dx of constipation. Negative CT done. Has not yet had flu vaccine this year. - History of Current Complaint Chief Complaint: UCRespiratory Stated Complaint: COUGH Time Seen by Provider: 04/21/19 08:45 Hx Obtained From: Patient, Family/Director Of Academic - here with daughter, visiting from [facility]. Hx Last Menstrual Period: n/a Onset/Duration: Gradual Onset, Lasting Days - 2-3 Timing: Intermittent Episodes - of increased respiratory rate. Severity Initially: Moderate Severity Currently: Moderate Pain Intensity: 3 Character: Cough: Nonproductive Aggravating Factors: Recumbent Position Alleviating Factors: Bronchodilator Associated Signs And Symptoms: Positive: Dyspnea, Fever - subjective--had acetaminophen about 4 hours ago.. Negative: Dizziness, Calf Swelling - Allergies/Home Medications Allergies/Adverse Reactions: Allergies Allergy/AdvReac Type Severity Reaction Status Date / Time azithromycin Allergy Swelling Verified 04/21/19 08:39 Of Face,Lips,& Throat Cephalosporins Allergy Swelling Verified 04/21/19 08:39 Of Face,Lips,& Throat clarithromycin Allergy Swelling Verified 04/21/19 08:39 Of Face,Lips,& Throat fentanyl Allergy Swelling Verified 04/21/19 08:39 lansoprazole [From Prevacid] Allergy Unknown Verified 04/21/19 08:39 Reaction Details lisinopril Allergy Unknown Verified 04/21/19 08:39 Reaction Details losartan Allergy Swelling Verified 04/21/19 08:39 Of Face,Lips,& Throat ofloxacin Allergy Swelling Verified 04/21/19 08:39 silver sulfadiazine Allergy Unknown Verified 04/21/19 08:39 Reaction Details soybean Allergy Unknown Verified 04/21/19 08:39 Reaction Details Sulfa (Sulfonamide Allergy Swelling Verified 04/21/19 08:39 Antibiotics) Of Face,Lips,& Throat tramadol Allergy Unknown Verified 04/21/19 08:39 Reaction Details Home Medications: Home Medications Amiodarone TAB* [Cordarone TAB*] 200 mg PO DAILY 04/21/19 [History Confirmed ] Atorvastatin* [Lipitor*] 10 mg PO DAILY 04/21/19 [History Confirmed 04/21/19] Clotrimazole 1% CREAM* [Clotrimazole 1%*] 1 applic TOPICAL TID 04/21/19 [ History Confirmed 04/21/19] Desloratidine (NF) [Clarinex (NF)] 5 mg PO DAILY 04/21/19 [History Confirmed ] Dicyclomine CAP* [Bentyl CAP*] 10 mg PO QID 04/21/19 [History Confirmed 04/21/19 ] EPINEPHrine [Epipen] 0.3 mg IM SEE INSTRUCTIONS PRN 04/21/19 [History Confirmed 04/21/19] Estropitate 1.5 mg PO DAILY 04/21/19 [History] Metoprolol Succinate XL TAB* [Toprol XL TAB*] 25 mg PO DAILY 04/21/19 [History Confirmed 04/21/19] Nystatin/Triamcinolon OINT(NF) [Mycolog Oint(NF)] 1 applic TOPICAL TID PRN 04/21 [History Confirmed 04/21/19] PMH/Surg Hx/FS Hx/Imm Hx Previously Healthy: No Endocrine History: Diabetes - well controlled. Cardiovascular History: Hypertension, Atrial Fibrillation Respiratory History: Other - prone to wheezing and uses albuterol, but normal PFT's Other History Of: Anticoagulant Therapy - since 06/08/2018 Dr Parry - Surgical History Surgical History: Yes Surgery Procedure, Year, and Place: ONE KNEE REPLACED(2004,[facility]) ONE KNEE REPLACED IN [place]; parathyroid(2009, [facility]); gallbladder LONG TIME AGO. LEON CARPAL TUNNEL RELEASE; HYSTERECTOMY - Family History Known Family History: Positive: Hypertension - Social History Occupation: Retired Lives: Alone Alcohol Use: None Substance Use Type: None Smoking Status (MU): Never Smoked Tobacco Have You Smoked in the Last Year: No - Immunization History Most Recent Influenza Vaccination: 2016 Most Recent Tetanus Shot: UTD Most Recent Pneumonia Vaccination: UTD Review of Systems All Other Systems Reviewed And Are Negative: Yes Constitutional: Positive: Fatigue ENT: Positive: Negative. Negative: Sore Throat, Ear Ache, Sinus Congestion Respiratory: Positive: Shortness Of Breath, Cough Cardiovascular: Positive: Other - hx of rate controlled a fib. Negative: Chest Pain Gastrointestinal: Positive: Abdominal Pain - has improved significantly with diet change. Genitourinary: Positive: Other - hx of incontinence. Motor: Positive: Negative Neurovascular: Positive: Negative Musculoskeletal: Positive: Negative Neurological: Positive: Negative Psychological: Positive: Negative Is Patient Immunocompromised?: No Physical Exam Triage Information Reviewed: Yes Appearance: Ill-Appearing, Obese, Other: - looks frail and chronically unwell, but alert. Vital Signs: Initial Vital Signs Temp 97.9 F 04/21/19 08:34 Pulse 70 04/21/19 08:34 Resp 24 04/21/19 08:34 BP 157/80 04/21/19 08:34 Pulse Ox 96 04/21/19 08:34 Eyes: Positive: Conjunctiva Clear ENT: Positive: Pharynx normal, TMs normal Neck: Positive: Supple, Nontender, No Lymphadenopathy Respiratory Exam: Other - Mildly tachypneic without indrawing or use of accessory muscles. Respiratory: Positive: Lungs clear, Normal breath sounds, No accessory muscle use. Negative: Crackles, Rhonchi, Wheezing Cardiovascular: Positive: RRR - clinically regular, Murmur:Sys:Grade _?_/ - short murmur left sternal border without radiation.. Negative: Tachycardia Musculoskeletal: Positive: Edema @ - mild pitting edema of the ankles. Neurological: Positive: Alert Skin Exam: Normal Respiratory Course/Dx - Course Course Of Treatment: Reviewed negative CXR, likely viral illness. Manage symptoms. She requests a codeine suppressant for sleep; cautioned re risks of this but she is rather adamant about having codeine. [facility] search [phone] - Differential Dx/Diagnosis Differential Diagnosis/HQI/PQRI: Asthma, Bronchitis, Influenza, Sinusitis, Other - URI Provider Diagnosis: URI, acute Discharge ED - Sign-Out/Discharge Documenting (check all that apply): Patient Departure All imaging exams completed and their final reports reviewed: Yes - Discharge Plan Condition: Stable Disposition: HOME Prescriptions: guaiFENesin/CODIEN 100MG-10MG* [Robitussin AC 100Mg-10Mg*] 5 ml PO Q4H PRN #100 ml MDD 20ml PRN Reason: Cough Patient Education Materials: Upper Respiratory Infection (ED) Referrals: Sinan Juarez MD [Primary Care Provider] - Additional Instructions: It is likely that you have a virus which is increasing your breathing rate. Continue use of albuterol as needed for cough and shortness of breath. Please use the codeine suppressant carefully, because it can cause drowsiness and can worsen your constipation. If you continue to cough and have rapid breathing, please proceed to the emergency room for further testing. - Billing Disposition and Condition Condition: STABLE Disposition: Home
[2019-04-21 09:06] LABS: Influenza A Molecular NEGATIVE (Negative); Influenza B Molecular NEGATIVE (Negative)
== END 2019-04-21 10:02 | disposition home or self-care (01) ==
LOC: UCCORT 07:52
DX: J06.9 Acute upper respiratory infection, unspecified (principal); E66.9 Obesity, unspecified; E11.9 Type 2 diabetes mellitus without complications; I10 Essential (primary) hypertension; R06.02 Shortness of breath; Z88.1 Allergy status to other antibiotic agents; Z88.5 Allergy status to narcotic agent; Z88.2 Allergy status to sulfonamides; Z88.8 Allergy status to other drugs, medicaments and biological substances; Z91.018 Allergy to other foods; Z79.899 Other long term (current) drug therapy
CPT/HCPCS: 71046; 99212; G0463

== ENCOUNTER 2019-05-09 09:55 | Emergency (ER) | payer MEDICARE ==
--- OUTSIDE RECORDS SUMMARY | 2019-05-09 10:41 | XMS REPORT | Continuity of Care Document ---
:1940 External Reference #:[id number] Author Name Tracee Jaeger NP (transmitted by agent of provider Chelsy King) Address [address] [place] [address] Care Team Providers Name Role Phone Nasim Chiang MD - Internal Medicine Care Team [employer] [phone] Sinan Juarez MD - Family Care Team [employer] Medicine Arun Allen MD - Care Team [employer] [phone] Cardiovascular Disease Dee Juarez NP - Family Care Team [employer] Medicine Problems Active Problems Provider Date Diarrhea Tracee Jaeger NP Onset: 04/18/2019 Atrial fibrillation Tracee Jaeger NP Onset: 04/18/2019 Abdominal bloating Tracee Jaeger NP Onset: 04/18/2019 Essential hypertension Tracee Jaeger NP Onset: 04/18/2019 Type 2 diabetes mellitus in obese Tracee Jaeger NP Onset: 04/18/2019 Social History Type Date Description Comments Sex [...] Use Denies Drug Use Smoking Status Reviewed: 05/02/19 Patient has never smoked Exercise Type/Frequency Does not exercise Allergies, Adverse Reactions, Alerts Active Allergies Reaction Severity Comments Date Sulfa Antibiotics swelling 10/25/2012 Sulfa Antibiotics 09/18/2018 Silver Sulfadiazine 10/25/2012 Prevacid 10/25/2012 Zithromax 10/25/2012 Biaxin 10/25/2012 Ceftin 10/25/2012 Ofloxacin 10/25/2012 Tramadol 05/12/2016 Medications Active Medications SIG Qnty Indications Ordering Date Provider Dicyclomine HCL take one capsule 120caps Tracee Jaeger, 04/18/2019 10mg by mouth four [employer]NAGER [employer] Capsules times a day Hydrocodone-Acetaminop TK 1/2 Or 1 T PO Q Unknown hen 8 H prn For Severe 5-325mg Tablets P MDD 3 Magnesium-Oxide 1 by mouth every Unknown day 400(241.3mg) mg Tablets Clotrimazole use three times a Unknown Anti-Fungal day 1% Cream Nystatin-Triamcinolone use three times a Unknown day until clear 638027-9.1Unit/GM-% Cream Desloratadine 1 by mouth every Unknown [...] DR Shahid Cobian 1 qd Unknown 1000U Medications Administered in [...] Depomedrol 80MG Laura Curtis M.D. 11/13/2014 Injection Gtomedrol 80MG Laura Curtis M.D. 07/10/2014 Injection Gtomedrol 80MG Laura Curtis M.D. 10/24/2013 Injection Gtomedrol 80MG Laura Curtis M.D. 10/24/2013 Injection Gtomedrol 80MG Laura Curtis M.D. 07/11/2013 Injection Depomedrol 80MG Laura Curtis M.D. 04/11/2013 Injection Depomedrol 80MG Laura Curtis M.D. 01/01/2013 Injection Depomedrol 80MG Laura Curtis M.D. 10/25/2012 Injection Immunizations Description No Information Available Vital Signs Date Vital Result Comment 05/02/2019 10:24am Height 65 inches 5'5" Heart Rate 76 /min BP Systolic 152 mmHg BP Diastolic 88 mmHg Body Temperature 97.0 F O2 % BldC Oximetry 94 % 04/18/2019 10:47am Height 65 inches 5'5" Weight 224.00 lb Heart Rate 82 /min BP Systolic 150 mmHg BP Diastolic 77 mmHg Body Temperature 97.5 F O2 % BldC Oximetry 95 % BMI (Body Mass Index) 37.3 kg/m2 Results Description No Information Available Procedures Date Code Description Status 11/22/2018 68906 Inject Tendon Sheath Or Ligament Aponeurosis Eg Plantar Completed Fascia Medical Devices Description No Information Available Encounters Type Date Location Provider Dx Diagnosis Office Visit 05/02/2019 [facility] Tracee Jaeger, R10.9 Unspecified 10:15a MANAGER GRANT abdominal pain R19.7 Diarrhea, unspecified R14.0 Abdominal distension (gaseous) Assessments Date Code Description Provider 05/02/2019 R10.9 Unspecified abdominal pain Tracee Jaeger, MANAGER [employer] 05/02/2019 R19.7 Diarrhea, unspecified Tracee Downeyers, MANAGER GRANT 05/02/2019 R14.0 Abdominal distension (gaseous) Tracee Jaeger, MANAGER GRANT 04/18/2019 R19.7 Diarrhea, unspecified Tracee Downeyers, MANAGER GRANT 04/18/2019 R10.9 Unspecified abdominal pain Tracee Jaeger, MANAGER GRANT 04/18/2019 R14.0 Abdominal distension (gaseous) Tracee Jaeger, MANAGER GRANT 11/22/2018 M65.342 Trigger finger, left ring finger Laura Curtis M.D. Plan of Treatment Future Appointment(s):05/25/2019 10:15 am - Tracee Jaeger NP at [facility] [id number]/06/2019 - Tracee Jaeger NPR10.9 Unspecified abdominal painNew Labs:CBC No Diff, Ordered: 05/02/19Comp Metabolic Panel, Ordered: C Reactive Protein, Ordered: 05/02/19R19.7 Diarrhea, [id number] Abdominal distension (gaseous) Functional Status Description No Information Available Mental Status Description No Information Available Referrals Description No Information Available
--- OUTSIDE RECORDS SUMMARY | 2019-05-09 10:41 | XMS REPORT | Continuity of Care Document ---
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 Medicine Problems Active Problems Provider Date Primary cardiomyopathy Grella, Kerrie A., ANP Onset: 09/27/2011 Chest pain Grella, Kerrie A., ANP Onset: 09/27/2011 Benign essential hypertension Grella, Kerrie A., ANP Onset: 09/27/2011 Mixed hyperlipidemia Grella, Kerrie A., ANP Onset: 09/27/2011 Dyspnea Grella, Kerrie A., ANP Onset: 07/17/2013 Essential tremor Grella, Kerrie A., ANP Onset: 06/04/2014 Sleep dysfunction with sleep stage Grella, Kerrie A., ANP Onset: 10/08/2014 disturbance Essential hypertension Grella, Kerrie A., ANP Onset: 09/29/2015 Sleep disorder Grella, Kerrie A., ANP Onset: 09/29/2015 Acute bronchitis Grella, Kerrie A., ANP Onset: 11/26/2015 Preoperative cardiovascular Frankie Parry M.D., Onset: 03/26/2016 examination [facility] Allergic condition Frankie Parry M.D., Onset: 03/26/2016 [facility] Other allergy, subsequent encounter Frankie Parry M.D., Onset: 2016 [facility] Type 2 diabetes mellitus Frankie Parry M.D., Onset: 06/23/2017 [facility] Paroxysmal atrial fibrillation Frankie Parry M.D., Onset: 10/03/2018 [facility] Malaise and fatigue Frankie Parry M.D., Onset: 04/27/2019 [facility] Allergic reaction Onset: Vaginal bleeding Onset: Facial swelling Onset: Reactive airways dysfunction syndrome Onset: Acute exacerbation of chronic Onset: bronchitis Hypoxia Onset: Social History Type Date Description Comments Sex Unknown Tobacco Use Start: Unknown Never Smoked Cigarettes ETOH Use Never used alcohol Tobacco Use Start: Unknown Patient denies history of smoking Smoking Status Reviewed: 04/27/19 Patient denies history of smoking Allergies, Adverse Reactions, Alerts Active Allergies Reaction Severity Comments Date Sulfa Drugs 07/07/2011 Zithromax 07/07/2011 Losartan lip swelling 01/28/2016 Clarithromycin Anaphylaxis 04/18/2019 Fentanyl Throat Swelling 04/18/2019 Lisinopril Eye Swelling 04/18/2019 Ofloxacin Insomnia 04/18/2019 Silver Sulfadiazine Edema 04/18/2019 Soybean Preparation Anaphylaxis 04/18/2019 Tramadol Lip Swelling 04/18/2019 Medications Active Medications SIG Qnty Indications Ordering Date Provider Atorvastatin Calcium 1 by mouth 90tabs E78.2 Frankie Parry 06/08/2018 10mg every day Maritza Pack, [facility] Tablets Vitamin D3 Complete 1 po daily Frankie Parry 06/23/2017 1000mg Maritza Pack, [facility] Tablets Torsemide Take One Tablet 90tabs I42.9 Frankie Parry 09/29/2015 10mg Tablets By Mouth Every M., Maritza, [facility] Day Citalopram Hydrobromide 1 po qd 30tabs Unknown 10mg Tablets Ventolin HFA prn Unknown 108(90Base) mcg/Act Aerosol Glipizide 1 by mouth Unknown 10mg Tablets every day Metformin HCL one po twice Hubert Bassett MD 850mg Tablets daily. Multi-Day Vitamins 1 by mouth Unknown Tablets every day Levocetirizine 1 by mouth Unknown Dihydrochloride every day 5mg Tablets Hydroxyzine HCL 3 tabs by mouth Unknown 25mg Tablets AT Bedtime Benadryl Allergy 1 by mouth Unknown 25mg Tablets every day at bedtime Xarelto 1 by mouth 90tabs Frankie Parry 20mg Tablets every day aMritza Pack, [facility] Amlodipine Besylate 1 by mouth Unknown 5mg every day Tablets Magnesium 1 po daily Unknown 400mg Tablets Omeprazole 1 by mouth Unknown 20mg Capsules DR every day Immunizations CPT Code Status Date Vaccine Lot # 28432 Given Unknown Pneumovax Injection Vital Signs Date Vital Result Comment 04/27/2019 11:42am BP Systolic Sitting Left Arm 172 mmHg BP Diastolic Sitting Left Arm 82 mmHg Heart Rate 76 /min Respiratory Rate 18 /min Height 65 inches 5'5" per pt Weight 224.00 lb BMI (Body Mass Index) 37.3 kg/m2 BSA (Body Surface Area) 2.08 m2 [place] body weight in kilograms 57 kg O2 % BldC Oximetry 92 % Ora 10/03/2018 11:51am BP Systolic Sitting Right Arm 150 mmHg BP Diastolic Sitting Right Arm 81 mmHg Heart Rate 74 /min Respiratory Rate 16 /min Height 65 inches 5'5" per pt [place] body weight in kilograms 57 kg O2 % BldC Oximetry 93 % ra Results Test Acquired Facility Test Result H/L Range Note Date nRBC/100 WBC Bld 04/13/2019 N2N/CCD Import Nucleated Red 0.0 < 10/ 100 Auto-Rto Blood Cells % WBC (auto) Neutrophils # 04/13/2019 N2N/CCD Import Neutrophils # 2.92 1.8-7.0 Bld Auto (Auto) Lymphocytes # 04/13/2019 N2N/CCD Import Lymphocytes # 1.43 1.0-4.0 Bld Auto (Auto) Monocytes # Bld 04/13/2019 N2N/CCD Import Monocytes # (Auto) 0.63 0.3- 0.9 Auto Eosinophil # Bld 04/13/2019 N2N/CCD Import Eosinophils # 0.59 High 0.0- 0.5 Auto (Auto) Basophils # Bld 04/13/2019 N2N/CCD Import Basophils # (Auto) 0.05 0.0- 0.1 Auto Imm Granulocytes 04/13/2019 N2N/CCD Import Immature 0.02 # Bld Auto Granulocyte # (Auto) nRBC # Bld Auto 04/13/2019 N2N/CCD Import Nucleated RBC 0.00 Absolute Count (auto) Glucose 04/13/2019 N2N/CCD Import Glucose Screen 145 High 74-106 SerPl-mCnc BUN SerPl-mCnc 04/13/2019 N2N/CCD Import Blood Urea 29 High 7-18 Nitrogen Creat SerPl-mCnc 04/13/2019 N2N/CCD Import Creatinine 1.2 0.6-1.3 GFR/Bsa pred.non 04/13/2019 N2N/CCD Import Estimated GFR 46 >60 black SerPl (Non- MDRD-ArVRat [place] GFR/Bsa 04/13/2019 N2N/CCD Import Estimated GFR 55 >60 pred.black SerPl () MDRD-ArVRat BUN/Creat SerPl 04/13/2019 N2N/CCD Import BUN/Creatinine 24.1 Ratio Sodium 04/13/2019 N2N/CCD Import Sodium Level 135 Low 136-145 SerPl-sCnc Potassium 04/13/2019 N2N/CCD Import Potassium Level 3.9 3.5-5.1 SerPl-sCnc Chloride 04/13/2019 N2N/CCD Import Chloride Level 102 98-107 SerPl-sCnc Co2 SerPl-sCnc 04/13/2019 N2N/CCD Import Carbon Dioxide 28 21-32 Level Anion Gap 04/13/2019 N2N/CCD Import Anion Gap 5 Low 8-16 SerPl-sCnc Calcium 04/13/2019 N2N/CCD Import Calcium Level 8.5 8.5-10.1 SerPl-mCnc Prot SerPl-mCnc 04/13/2019 N2N/CCD Import Total Protein 7.3 6.4-8.2 Albumin 04/13/2019 N2N/CCD Import Albumin 3.5 3.4-5.0 SerPl-mCnc Globulin Ser 04/13/2019 N2N/CCD Import Globulin 3.8 1.9-4.3 Calc-mCnc Albumin/Glob 04/13/2019 N2N/CCD Import Albumin/Globulin 0.9 SerPl Ratio Bilirub 04/13/2019 N2N/CCD Import Total Bilirubin 0.4 0.2-1.0 SerPl-mCnc Ast SerPl-cCnc 04/13/2019 N2N/CCD Import Aspartate Amino 25 15-37 Transf (Ast/Sgot) Alt SerPl-cCnc 04/13/2019 N2N/CCD Import Alanine 44 12-78 Aminotransferase (Alt/SGPT) Alp SerPl-cCnc 04/13/2019 N2N/CCD Import Alkaline 122 High 45-117 Phosphatase Lactate 04/13/2019 N2N/CCD Import Lactic Acid Level 1.4 0.4-1.9 SerPl-sCnc Color Ur Auto 04/13/2019 N2N/CCD Import Urine Color Yellow Yellow Appearance Ur 04/13/2019 N2N/CCD Import Urine Clarity Clear Clear Glucose Ur Ql 04/13/2019 N2N/CCD Import Urine Glucose (Ua) Negative Negative Strip.auto Bilirub Ur Ql 04/13/2019 N2N/CCD Import Urine Bilirubin Negative Negative Strip.auto Ketones Ur Ql 04/13/2019 N2N/CCD Import Urine Ketones Negative Negative Strip.auto Sp Gr Ur 04/13/2019 N2N/CCD Import Urine Specific 1.022 1.010-1.03 Refractometry [place] 0 Hgb Ur Ql 04/13/2019 N2N/CCD Import Urine Blood Negative 0-2 Strip.auto pH Ur Strip.auto 04/13/2019 N2N/CCD Import Urine pH 6.0 Low 6.5-7.5 Prot Ur Ql 04/13/2019 N2N/CCD Import Urine Protein Trace Negative Strip.auto Urobilinogen Ur 04/13/2019 N2N/CCD Import Urine Urobilinogen < 2.0 < 2.0 Ql Strip.auto Nitrite Ur Ql 04/13/2019 N2N/CCD Import Urine Nitrite Negative Negative Strip.auto Leukocyte 04/13/2019 N2N/CCD Import Urine Leukocyte Negative Negative esterase Ur Ql Esterase Strip.auto WBC # XXX Auto 04/13/2019 N2N/CCD Import White Blood Count 5.6 3.1-10.7 RBC # Bld Auto 04/13/2019 N2N/CCD Import Red Blood Count 4.45 3.90-5.40 Imm 04/13/2019 N2N/CCD Import Immature 0.4 0.0-5.0 Granulocytes/birght Granulocyte % k NFr Bld Auto (Auto) Basophils/leuk 04/13/2019 N2N/CCD Import Basophils (%) 0.9 0.0-1.1 NFr Bld Auto (Auto) Eosinophil/leuk 04/13/2019 N2N/CCD Import Eosinophils (%) 10.5 High 0.0- 6.6 NFr Bld Auto (Auto) Monocytes/leuk 04/13/2019 N2N/CCD Import Monocytes (%) 11.2 4.3-13.2 NFr Bld Auto (Auto) Lymphocytes/leuk 04/13/2019 N2N/CCD Import Lymphocytes (%) 25.4 20.0- 42.0 NFr Bld Auto (Auto) Neutrophils/leuk 04/13/2019 N2N/CCD Import Neutrophils (%) 51.6 40.4- 72.8 NFr Bld Auto (Auto) PMV Bld Auto 04/13/2019 N2N/CCD Import Mean Platelet 9.6 8.9-12.4 Volume RDW RBC Auto-Rto 04/13/2019 N2N/CCD Import RDW Coefficient of 14.1 11.7- 14.4 Variation RDW RBC Auto 04/13/2019 N2N/CCD Import Red Cell 43.4 36-47 Distribution Width Platelet # Bld 04/13/2019 N2N/CCD Import Platelet Count 302 155-360 Auto MCHC RBC 04/13/2019 N2N/CCD Import Mean Corpuscular 33.5 30.8-34.3 Auto-mCnc Hemoglobin Concent MCH RBC Qn Auto 04/13/2019 N2N/CCD Import Mean Corpuscular 28.3 25.9- 32.7 Hemoglobin MCV RBC Auto 04/13/2019 N2N/CCD Import Mean Corpuscular 84.5 80.9-99.0 Volume Hct VFr Bld Auto 04/13/2019 N2N/CCD Import Hematocrit 37.6 36.0-46.1 Hgb Bld-mCnc 04/13/2019 N2N/CCD Import Hemoglobin 12.6 11.6-15.8 Lab Results 03/20/2019 N2N/CCD Import Urine RBC 3-5 0-2 WBC #/area UrnS 03/20/2019 N2N/CCD Import Urine WBC 3-5 0-5 HPF Squamous Ur Ql 03/20/2019 N2N/CCD Import Urine Epithelial Many None Seen Auto Cells Lipase 03/20/2019 N2N/CCD Import Lipase 182 56-289 SerPl-cCnc Procedures Date Code Description Status 04/27/2019 55062 EKG-Tracing And Report Completed Medical Devices Description No Information Available Encounters Type Date Location Provider Dx Diagnosis Office Visit 04/27/2019 Cardiology Office Frankie Parry I48.0 Paroxysmal atrial 11:20a Ben Pack., [facility] fibrillation I42.9 Cardiomyopathy, unspecified E78.2 Mixed hyperlipidemia R53.83 Other fatigue E11.9 Type 2 diabetes mellitus without complications Assessments Date Code Description Provider 04/27/2019 I48.0 Paroxysmal atrial fibrillation Frankie Parry M.D., [facility] 04/27/2019 I42.9 Cardiomyopathy, unspecified Frankie Parry M.D., [facility] 04/27/2019 E78.2 Mixed hyperlipidemia Frankie Parry M.D., [facility] 04/27/2019 R53.83 Other fatigue Frankie Parry M.D., [facility] 04/27/2019 E11.9 Type 2 diabetes mellitus without Frankie Parry M.D., complications [facility] Plan of Treatment Future Appointment(s):07/06/2019 11:00 am - Frankie Parry M.D., [facility] at Cardiology [id number]/27/2019 - Frankie Parry M.D., FACCI48.0 Paroxysmal atrial fibrillationComments:I will DC amiodarone. I suspect it may be contributing to her fatigue. If there is evidence of recurrence of the afib we may resort to a differenct type of AADI42.9 Cardiomyopathy, unspecifiedComments: HCM with no documented significant gradients.E78.2 Mixed hyperlipidemiaComments: On statin. Followed by PCP.R53.83 Other fatigueComments:She will stop amiodarone. I would like her to return in 2 months to make sure she has remained in SR.E11.9 Type 2 diabetes mellitus without complicationsComments: Followed by PCPAllFollow up:Follow up visit in two month. Functional Status Functional Condition Comment Date Status Independent with all ADL's Active Independent with all IADL's Active Mental Status Description No Information Available Referrals Description No Information Available
[2019-05-09 11:01] VITALS: BP 137/77
--- NOTE | 2019-05-09 11:23 | ED ---
Lower Extremity - HPI Summary HPI Summary: 79 yr old female with the complaint of left foot and ankle pain. Onset of symptoms three days ago. She got caught in her blanket and twisted the foot and ankle. No other complaints. Her pain is moderate. Associated with STS lateral ankle. No other injuries. - History of Current Complaint Chief Complaint: UCLowerExtremity Stated Complaint: LEFT FOOT INJURY Time Seen by Provider: 05/09/19 11:14 Hx Last Menstrual Period: n/a Pain Intensity: 10 - Allergies/Home Medications Allergies/Adverse Reactions: Allergies Allergy/AdvReac Type Severity Reaction Status Date / Time azithromycin Allergy Swelling Verified 05/09/19 10:55 Of Face,Lips,& Throat Cephalosporins Allergy Swelling Verified 05/09/19 10:55 Of Face,Lips,& Throat clarithromycin Allergy Swelling Verified 05/09/19 10:55 Of Face,Lips,& Throat fentanyl Allergy Swelling Verified 05/09/19 10:55 lansoprazole [From Prevacid] Allergy Unknown Verified 05/09/19 10:55 Reaction Details lisinopril Allergy Unknown Verified 05/09/19 10:55 Reaction Details losartan Allergy Swelling Verified 05/09/19 10:55 Of Face,Lips,& Throat ofloxacin Allergy Swelling Verified 05/09/19 10:55 silver sulfadiazine Allergy Unknown Verified 05/09/19 10:55 Reaction Details soybean Allergy Unknown Verified 05/09/19 10:55 Reaction Details Sulfa (Sulfonamide Allergy Swelling Verified 04/21/19 08:39 Antibiotics) Of Face,Lips,& Throat tramadol Allergy Unknown Verified 04/21/19 08:39 Reaction Details PMH/Surg Hx/FS Hx/Imm Hx Endocrine/Hematology History: Reports: Hx Anticoagulant Therapy - since 2017 Dr Parry, Hx Diabetes, Hx Thyroid Disease - Hypothyroidism Cardiovascular History: Reports: Hx Congestive Heart Failure, Hx Hypertension, Other Cardiovascular Problems/Disorders - "bad heart", possible Afib Denies: Hx Pacemaker/ICD Respiratory History: Reports: Hx Asthma - not sure GI History: Reports: Other GI Disorders - PARATHYROIDECTOMY History: Reports: Hx Renal Disease Denies: Other Problems/Disorders Musculoskeletal History: Reports: Hx Arthritis - ALL OVER, LEON KNEE RELACEMENT, Hx Back Problems, Other Musculoskeletal History - SPINAL STENOSIS Sensory History: Reports: Hx Cataracts, Hx Contacts or Glasses - GLASSES Opthamlomology History: Reports: Hx Cataracts, Hx Contacts or Glasses - GLASSES Neurological History: Reports: Other Neuro Impairments/Disorders - PAIN CLINIC PT Psychiatric History: Reports: Hx Depression - recently Denies: Hx Panic Disorder - Surgical History Surgery Procedure, Year, and Place: ONE KNEE REPLACED(2005,[facility]) ONE KNEE REPLACED IN [place]; parathyroid(2010, [facility] [place]); gallbladder LONG TIME AGO. LEON CARPAL TUNNEL RELEASE; HYSTERECTOMY Hx Anesthesia Reactions: No Infectious Disease History: No Infectious Disease History: Reports: Hx Clostridium Difficile - ~2003, Hx Shingles Denies: Hx Hepatitis, Hx Human Immunodeficiency Virus (HIV), Hx of Known/ Suspected MRSA, Hx Tuberculosis, Hx Known/Suspected VRE, Hx Known/Suspected VRSA , History Other Infectious Disease, Traveled Outside the [place] in Last 30 Days - Family History Known Family History: Positive: Hypertension - Social History Alcohol Use: None Substance Use Type: Reports: None Smoking Status (MU): Never Smoked Tobacco Have You Smoked in the Last Year: No Review of Systems Positive: Other - left foot ankle pain All Other Systems Reviewed And Are Negative: Yes Physical Exam Triage Information Reviewed: Yes Vital Signs On Initial Exam: Initial Vitals Temp Pulse Resp BP Pulse Ox 97.7 F 86 20 137/77 94 05/09/19 10:55 05/09/19 10:55 05/09/19 10:55 05/09/19 10:55 05/09/19 10:55 Vital Signs Reviewed: Yes Appearance: Positive: Well-Appearing, No Pain Distress Skin: Positive: Warm, Skin Color Reflects Adequate Perfusion Head/Face: Positive: Normal Head/Face Inspection Eyes: Positive: EOMI ENT: Positive: Normal ENT inspection Neck: Positive: Nontender Respiratory/Lung Sounds: Positive: Clear to Auscultation, Breath Sounds Present Cardiovascular: Positive: RRR. 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 Neurological: Positive: Sensory/Motor Intact, Alert, Oriented to Person Place, Time, CN Intact II-III Psychiatric: Positive: Normal Diagnostics - Vital Signs Vital Signs Temp Pulse Resp BP Pulse Ox 05/09/19 10:55 97.7 F 86 20 137/77 94 - Laboratory Lab Statement: Any lab studies that have been ordered have been reviewed, and results considered in the medical decision making process. - Radiology left foot ankle Radiology Interpretation Completed By: Radiologist - no acute fracture identified Lower Extremity Course/Dx - Course Course Of Treatment: 79 yr old with left ankle foot sprain. They have crutches in the car and the patient will get a gel ankle splint. FU with ortho. - Diagnoses Provider Diagnoses: Ankle sprain, Sprain of foot, left Discharge ED - Sign-Out/Discharge Documenting (check all that apply): Patient Departure All imaging exams completed and their final reports reviewed: Yes - Discharge Plan Condition: Good Disposition: HOME Patient Education Materials: Ankle Sprain (ED), Foot Sprain (ED) Referrals: Sinan Juarez MD [Primary Care Provider] - Behzad Zavaleta MD [Medical Doctor] - 2 Days - Billing Disposition and Condition Condition: GOOD Disposition: Home
== END 2019-05-09 13:06 | disposition home or self-care (01) ==
LOC: UCCORT 09:55
DX: S93.402A Sprain of unspecified ligament of left ankle, initial encounter (principal); I10 Essential (primary) hypertension; E11.9 Type 2 diabetes mellitus without complications; Z88.1 Allergy status to other antibiotic agents; Z88.2 Allergy status to sulfonamides; Z88.5 Allergy status to narcotic agent; Z91.018 Allergy to other foods; Z88.8 Allergy status to other drugs, medicaments and biological substances; W23.0XXA Caught, crushed, jammed, or pinched between moving objects, initial encounter; Y92.9 Unspecified place or not applicable
CPT/HCPCS: 99213; G0463

== ENCOUNTER 2019-09-09 17:43 | Emergency (ER) | payer MEDICARE ==
--- OUTSIDE RECORDS SUMMARY | 2019-09-09 17:55 | XMS REPORT | Continuity of Care Document ---
:1940 External Reference #:[id number] Author Name Aranza Malik, MAITE Address [address] [place] [address] Care Team Providers Name Role Phone Hubert Bassett MD - Cardiovascular Care Team Information Ct Technologist [phone] Disease [facility] - Allergy & Care Team Information Ct Technologist Immunology Frankie Parry - Cardiovascular Care Team Information Ct Technologist Disease Sinan Perry MD - Family Care Team Information Ct Technologist Medicine Ramesh Denson DR - Gastroenterology Care Team Information Ct Technologist Wellington Crowell MD - Allergy & Care Team Information Ct Technologist Unavailable Immunology Problems Active Problems Provider Date [...] Patient has never smoked Smoking Status Reviewed: 07/23/19 Patient has never smoked Allergies, Adverse Reactions, [...] Medications SIG Qnty Indications Ordering Date Provider Doxycycline Hyclate 1 tablet by 20tabs J01.90 Pola Schafer, 08/25/2019 100mg mouth twice DO Tablets daily for 10 days Amlodipine Besylate 1 by mouth every 90tabs I10 Ann, 08/03/2019 10mg day MD Sinan Tablets Cyclobenzaprine HCL 3 Times Daily 15tabs Unknown 07/21/2019 5mg Tablets Ibuprofen Every 4 To 6 HRS 14caps Unknown 07/21/2019 200mg Capsules Silver Sulfadiazine apply to 100gm T24.239A Mary Anne Devries, 07/05/2019 1% affected areas Cream once a day and re-apply as needed Omeprazole increase to 2 90caps K21.9 Mary Anne Devreis, 04/17/[address] capsule by mouth every day Amiodarone HCL 1/2 by mouth 45tabs I48.0 Ann, 04/09/2019 200mg every day MD Sinan Tablets I48.91 Vitamin D3 1 by mouth otc E55.9 Sinan Perry, 02/21/2019 2000Unit every day Capsules Albuterol Sulfate HFA Inhale 2 Puffs 42.5units J45.40 Sinan Perry, 02/14/2019 By Mouth Every 108(90Base) mcg/Act 4 Hours as Aerosol Needed Freestyle Lite Blood Check Finger 1units E11.9 Sinan Perry, 2018 Glucose Monitoring Sticks Daily System Device Magnesium Oxide 1 by mouth OTC E83.42 Sinan Perry, 10/02/2018 400mg every day Tablets Xarelto take 1 tablet 90tabs I48.91 Sinan Perry, 06/02/2018 20mg Tablets by mouth every MD day Hydrocodone-Acetaminop 1/2 or 1 tab by 90tabs Sinan Perry, 2017 hen mouth every 8 MD 5-325mg Tablets hours as needed for severe pain Citalopram Take 1 Tablet 90tabs F33.0 Sinan Perry, 10/17/2017 Hydrobromide By Mouth Every 20mg Tablets Day F41.9 Estropipate 2 pills by mouth 180tabs Z79.890 Ann, 04/01/2017 0.75mg once a day MD Sinan Tablets Clotrimazole 1 application to 15gm R21 Aranza Malik PA 01/27/2017 1% Cream affected area twice daily Fluticasone 1 spray each 1units J06.9 Ann, 11/26/2016 Propionate nostril daily Mia, [employer] 50mcg/Act Suspension J30.9 Freestyle Lite Test use as directed 100units E11.9 Sinan Perry, twice a day Strips Aspirin 1 by mouth every OTC E11.9 Sinan Perry, 03/10/2016 81mg Tablets day MD IGNACIO Test Strips For Check blood sugar 50units E11.65 Sinan Perry, Glucometer each am - fasting E11.9 Lancets For Use each am to 50units E11.65 Sinan Perry, 11/19/2014 Glucometer check fasting blood sugar E11.9 Metformin HCL Take 1 Tablet By 180tabs E11.65 Sinan Perry, 2014 850mg Mouth Twice Daily Tablets With A Meal. E11.9 Glipizide ER Take 1 Tablet By 90tabs E11.65 Sinan Perry, 2014 10mg Mouth Every Day Tablets ER 24HR E11.9 Nystatin-Triamcinolone apply to affected 60gm B37.2 Aranza Malik, 10/11 area bid-tid [place] 395656-3.1Unit/GM-% Ointment Albuterol Sulfate 1 vial via 75ml J20.9 Ann, 04/18/2014 (2.5mg/3ML) 0.083% nebulizer every 4 MD Sinan Nebulizer hours as needed wheezing J45.40 Metoprolol Succinate ER 1 by mouth every day I10 Frankie Parry 25mg Tablets ER 24HR Atorvastatin Calcium take 1 tablet by mouth E78.2 Frankie Parry 10mg Tablets every evening E78.0 Hydroxyzine HCL Take 1 Tablet By 90tabs F41.9 Sinan Perry, 25mg Mouth Every Night Tablets AT Bedtime. Torsemide Take 1 Tablet By 90tabs I10 Sinan Perry, 10mg Tablets Mouth Every Day R60.9 Oxybutynin Chloride ER take one tablet 90tabs R32 Ann, 5mg by mouth every MD Sinan Tablets ER 24HR day Diphenhydramine HCL 1 by mouth Unknown 25mg every 6 hours Capsules as needed itching Epinephrine inject if 2units T78.3xxD Ann, 0.3mg/0.3ML needed then MD Sinan Solution Auto-Inject call 911. Levocetirizine 1 by mouth 90tabs T78.3xxD Ann, Dihydrochloride every day MD Sinan 5mg Tablets J30.9 Desloratadine 1 by mouth every day T78.3xxD Unknown 5mg Tablets History Medications Doxepin HCL Apply thin film 45gm T24.239A Mary Anne Devries, 07/05/2019 - 5% Cream to affected MD 07/10/2019 area qid for five days Omeprazole 1 by mouth 30caps K21.9 Digiovandarrick, 04/17/2019 - 40mg Capsules every day MD Sinan 04/17/2019 Nitrofurantoin 1 pill by mouth 10caps R10.9 Ann, 04/09/2019 - Macrocrystal twice a day for MD Sinan 04/14/2019 100mg 5 days with Capsules food Immunizations CPT Code Status Date Vaccine Reaction Lot # [id number] Given 05/30/2019 Fluzone Highdose Age 65 And Over Preservative & Antibiotic Free 14824 Given 12/06/2018 Shingrix (Shingles) Zoster Vaccine HZV, Recombinant, Subunit, Adj 12056 Given 10/11/2018 Shingrix (Shingles) Zoster Vaccine HZV, Recombinant, Subunit, Adj 51017 Given 03/22/2018 Fluzone Highdose Age 65 And Over [facility] Preservative & Antibiotic Free 28500 Given 03/24/2017 Fluzone Highdose Age 65 And Over Preservative & Antibiotic Free 75390 Given 02/19/2015 Prevnar 13 Pneumococal Conjugate [facility]# [id number] Vaccine 98505 Given 05/06/2013 Afluria Or Fluvirin Flu Vac Intramuscular 03699 Given 04/11/2012 Afluria Or Fluvirin Flu Vac Intramuscular 65500 Given 04/05/2011 Afluria Or Fluvirin Flu Vac Intramuscular 99452 Given 03/23/2010 Afluria Or Fluvirin Flu Vac Intramuscular 00764 Given 04/11/2008 Afluria Or Fluvirin Flu Vac Intramuscular 68204 Given 03/29/2007 Afluria Or Fluvirin Flu Vac Intramuscular 60741 Given 05/16/2006 Afluria Or Fluvirin Flu Vac Intramuscular 52282 Given 12/29/2005 Tetanus And Diptheria Toxoid 7 Years And Older Preserv Free 57995 Given 04/22/2005 Pneumococcal 23 Immunization Adult Or Immunosuppressed Patient 23801 Given 04/22/2005 Pneumococcal 23 Immunization Adult Or Immunosuppressed Patient 02160 Given 04/22/2005 Afluria Or Fluvirin Flu Vac Intramuscular 01999 Given 04/22/2005 Afluria Or Fluvirin Flu Vac Intramuscular 36419 Given 04/30/2004 Afluria Or Fluvirin Flu Vac Intramuscular Vital Signs Date Vital Result Comment 08/25/2019 9:46am Body Temperature 98.0 F Heart Rate 74 /min BP Systolic 122 mmHg BP Diastolic 78 mmHg Respiratory Rate 18 /min O2 % BldC Oximetry 96 % Ra 07/23/2019 10:38am Heart Rate 80 /min BP Systolic 130 mmHg BP Diastolic 72 mmHg Respiratory Rate 18 /min Results Test Acquired Date Facility Test Result H/L Range Note Laboratory test 07/21/2019 [facility] Troponin-I < 0.015 1, 2 finding (315)- - ng/mL CBS W/Automated 07/21/2019 [facility] White 7.4 K/uL Normal 3.1-10.7 Diff (315)- - Blood Count Red Blood Count 4.42 M/uL Normal 3.90-5.40 Hemoglobin 12.1 gm/dL Normal 11.6-15.8 Hematocrit 37.7 % Normal 36.0-46.1 Mean Cell Volume 85.3 fl Normal 80.9-99.0 Mean Corpuscular HGB 27.4 pg Normal 25.9-32.7 Mean Corpuscular HGB Conc 32.1 g/dL Normal 30.8-34.3 Platelet Count 281 K/uL Normal 155-360 Red Cell Distri Width SD 43.3 fl Normal 36-47 Red Cell Distri Width %CV 13.9 % Normal 11.7-14.4 Mean Platelet Volume 10.0 fl Normal 8.9-12.4 Neut% 57.3 % Normal 40.4-72.8 Lymph % 30.0 % Normal 20.0-42.0 Hayes % 7.1 % Normal 4.3-13.2 Eo% 4.6 % Normal 0.0-6.6 Bas% 0.7 % Normal 0.0-1.1 Immature Grans 0.3 % Normal 0.0-5.0 NRBC % 0.0 /100WBC < 10/ 100 WBC Neut# 4.27 K/uL Normal 1.8-7.0 Lymph # 2.23 K/uL Normal 1.0-4.0 Hayes # 0.53 K/uL Normal 0.3-0.9 Eos # 0.34 K/uL Normal 0.0-0.5 Baso # 0.05 K/uL Normal 0.0-0.1 Immature Grans Absolute 0.02 K/uL NRBC # 0.00 K/uL Comprehensive Metabolic 07/21/2019 [facility] Glucose 118 mg/dL High 74-106 Panel (315)- - BUN 26 mg/dL High 7-18 Creatinine 1.0 mg/dL Normal 0.6-1.3 Glom Filtration Rate, Estimate 57 mL/min >60 If >60 mL/min >60 3 BUN/Creat 26.0 ratio Sodium 137 mmol/L Normal 136-145 Potassium 4.4 mmol/L Normal 3.5-5.1 Chloride 105 mmol/L Normal 98-107 Carbon Dioxide 29 mmol/L Normal 21-32 Anion Gap 3 mEq/L Low 8-16 Calcium 8.6 mg/dL Normal 8.5-10.1 Total Protein 7.1 g/dL Normal 6.4-8.2 Albumin 3.3 g/dL Low 3.4-5.0 Globulin 3.8 g/dL Normal 1.9-4.3 Alb/Glob 0.9 ratio Bilirubin,Total 0.2 mg/dL Normal 0.2-1.0 Sgot/Ast 15 U/L Normal 15-37 SGPT/Alt 25 U/L Normal 12-78 Alkaline Phosphatase 97 U/L Normal 45-117 Laboratory test finding 06/11/2019 [facility] Vitamin D 25 Hydroxy 38 ng/mL 30-100 4, 5 Magnesium 1.8 mg/dL 1.5-2.7 TSH 5.10 uIU/mL High 0.35-4.94 Basic (BMP) 06/11/2019 [facility] Sodium 139 mmol/L 135-146 6 Potassium 4.2 mmol/L 3.5-5.2 Chloride# 100 mmol/L 97-110 7 Carbon Dioxide 29 mmol/L 24-34 Glucose 97 mg/dL 70-105 BUN 32 mg/dL High 6-26 Creatinine 1.0 mg/dL 0.5-1.4 Calcium 9.3 mg/dL 8.5-10.5 8 Female Egfr 53 Low >60 9 Male Egfr 71 >60 10 Anion Gap 10 mmol/L 5-15 11 Laboratory test finding 06/11/2019 [facility] Tryptase 9.1 ug/L 12 Hemoglobin A1c 06/11/2019 [facility] Hemoglobin A1c 6.7 % High 4.1-5.9 Estimated Average Glucose Calc 146 mg/dL High 71-140 Lipid Treatment 06/11/2019 [facility] Cholesterol 201 mg/dL High 50-199 Triglycerides 143 mg/dL 30-200 HDL 53 mg/dL 35-85 13 Chol/ HDL Ratio 3.8 ratio 3.7-5.6 VLDL 29 mg/dL 2-29 LDL (Calc) 119 mg/dL High 20-99 14 Alt 23 U/L 3-42 Ast 13 U/L 8-42 Laboratory test 06/01/2019 [facility] Urine Culture Microbiology res 15 finding <SEE NOTE> CBC with Auto 06/01/2019 [facility] WBC 10.0 K/uL 4.1-11. 16, 17 Diff-fcmg 0 RBC 4.44 M/uL 4.00-5.40 18 Hemoglobin 12.5 gm/dL 12.0-16.0 19 Hematocrit 37.1 % 36.0-47.0 20 MCV 83.5 fL 80.0-95.0 21 MCH 28.2 pg 27.0-32.0 22 MCHC 33.8 g/dL 32.0-36.0 23 RDW 14.9 % High 10.5-14.5 24 PLT Count 335 K/ul 150-400 25 MPV 8.2 FL 7.1-10.7 Neutrophil 72.0 % 35.0-75.0 26 Lymphocyte 17.1 % 16.0-52.0 27 Monocyte 7.1 % 0.0-8.0 28 Eosinophil 2.6 % 0.0-5.0 Basophil 1.2 % 0.0-4.0 Abs Neutrophils 7.2 K/uL 1.8-7.7 29 Abs Lymphocytes 1.7 K/uL 1.2-4.8 30 Abs Monocytes 0.7 K/uL 0.0-0.8 31 Abs Eosinophils 0.3 K/uL 0.0-0.5 32 Abs Basophils 0.1 K/uL 0.0-0.2 33 Comprehensive Met Panel-FCMG 06/01/2019 [facility] Sodium 137 mmol/L 135- 146 34 Potassium 4.4 mmol/L 3.5-5.2 Chloride# 97 mmol/L 97-110 35 Carbon Dioxide 25 mmol/L 24-34 Calcium 9.4 mg/dL 8.5-10.5 36 Glucose 110 mg/dL High 70-105 BUN 27 mg/dL High 6-26 Creatinine 1.0 mg/dL 0.5-1.4 Total Protein 6.8 g/dL 6.0-8.0 Albumin 4.6 g/dL 3.6-4.9 Globulin 2.2 g/dL 2.0-3.5 A/G Ratio 2.1 Ratio 1.0-2.2 Total Bilirubin 0.4 mg/dL 0.1-1.3 Alkaline Phosphatase 81 U/L 24-140 Alt 14 U/L 3-42 Ast 15 U/L 8-42 Anion Gap 15 mmol/L 5-15 37 Female Egfr 53 Low >60 38 Male Egfr 71 >60 39 Laboratory test 06/01/2019 [facility] Lipase 21 U/L 11-82 finding Laboratory test 04/23/2019 [facility] Vitamin D 25 24 ng/mL Low 30-100 40, 41 finding Hydroxy TSH 5.28 uIU/mL High 0.35-4.94 T3,Free 2.64 pg/mL 1.71-3.71 Free T4 0.91 ng/dL 0.70-1.48 Ua RFX Micro & 04/13/2019 [facility] Urine Color Yellow Yellow 42 Culture II (315)- - Urine Clarity Clear Clear Urine Glucose - Dipstick NEGATIVE mg/dL Negative Urine Bilirubin - Dipstick NEGATIVE Negative Urine Ketone NEGATIVE mg/dL Negative Urine Specific [place] 1.022 Normal 1.010-1.030 Urine Blood NEGATIVE 0-2 Urine PH 6.0 Low 6.5-7.5 Urine Protein - Dipstick TRACE mg/dL Negative Urine Urobilinogen - Dipstick < 2.0 mg/dL < 2.0 Urine Nitrite - Dipstick NEGATIVE Negative Urine Leuk Esterase NEGATIVE Negative Source: URINE, CLEAN CAT <SEE NOTE> 43 CBS W/Automated 04/13/2019 [facility] White Blood 5.6 K/ uL Normal 3.1-10.7 Diff (315)- - Count Red Blood Count 4.45 M/uL Normal 3.90-5.40 Hemoglobin 12.6 gm/dL Normal 11.6-15.8 Hematocrit 37.6 % Normal 36.0-46.1 Mean Cell Volume 84.5 fl Normal 80.9-99.0 Mean Corpuscular HGB 28.3 pg Normal 25.9-32.7 Mean Corpuscular HGB Conc 33.5 g/dL Normal 30.8-34.3 Platelet Count 302 K/uL Normal 155-360 Red Cell Distri Width SD 43.4 fl Normal 36-47 Red Cell Distri Width %CV 14.1 % Normal 11.7-14.4 Mean Platelet Volume 9.6 fl Normal 8.9-12.4 Neut% 51.6 % Normal 40.4-72.8 Lymph % 25.4 % Normal 20.0-42.0 Hayes % 11.2 % Normal 4.3-13.2 Eo% 10.5 % High 0.0-6.6 Bas% 0.9 % Normal 0.0-1.1 Immature Grans 0.4 % Normal 0.0-5.0 NRBC % 0.0 /100WBC < 10/ 100 WBC Neut# 2.92 K/uL Normal 1.8-7.0 Lymph # 1.43 K/uL Normal 1.0-4.0 Hayes # 0.63 K/uL Normal 0.3-0.9 Eos # 0.59 K/uL High 0.0-0.5 Baso # 0.05 K/uL Normal 0.0-0.1 Immature Grans Absolute 0.02 K/uL NRBC # 0.00 K/uL Comprehensive Metabolic 04/13/2019 [facility] Glucose 145 mg/dL High 74-106 Panel (315)- - BUN 29 mg/dL High 7-18 Creatinine 1.2 mg/dL Normal 0.6-1.3 Glom Filtration Rate, Estimate 46 mL/min >60 If 55 mL/min >60 44 BUN/Creat 24.1 ratio Sodium 135 mmol/L Low 136-145 Potassium 3.9 mmol/L Normal 3.5-5.1 Chloride 102 mmol/L Normal 98-107 Carbon Dioxide 28 mmol/L Normal 21-32 Anion Gap 5 mEq/L Low 8-16 Calcium 8.5 mg/dL Normal 8.5-10.1 Total Protein 7.3 g/dL Normal 6.4-8.2 Albumin 3.5 g/dL Normal 3.4-5.0 Globulin 3.8 g/dL Normal 1.9-4.3 Alb/Glob 0.9 ratio Bilirubin,Total 0.4 mg/dL Normal 0.2-1.0 Sgot/Ast 25 U/L Normal 15-37 SGPT/Alt 44 U/L Normal 12-78 Alkaline Phosphatase 122 U/L High 45-117 Lactic Acid 04/13/2019 [facility] Lactic Acid 1.4 mmol/L Normal 0.4-1.9 (315)- - Lab Reflex >2.0 for Sepsis? Y Laboratory test 04/09/2019 [facility] Urine Culture Microbiology 45 finding res <SEE NOTE> Automated blood 03/20/2019 N2N/CCD Import Automated blood 1.66 1.0-4.0 lymphocyte count lymphocyte count (number/volume) (number/volume) Absolute 03/20/2019 N2N/CCD Import Absolute 4.73 1.8-7.0 neutrophil count neutrophil count Blood monocytes 03/20/2019 N2N/CCD Import Blood monocytes 0.63 0.3-0.9 automated count automated count (number/volume) (number/volume) Automated blood 03/20/2019 N2N/CCD Import Automated blood 0.27 0.0-0.5 eosinophil count eosinophil count Automated blood 03/20/2019 N2N/CCD Import Automated blood 0.03 immature immature granulocyte count granulocyte count (number (number/volume) Automated blood 03/20/2019 N2N/CCD Import Automated blood 0.05 0.0-0.1 basophil count basophil count (number/volume) (number/volume) Automated blood 03/20/2019 N2N/CCD Import Automated blood 0.00 nucleated nucleated erythrocyte count erythrocyte count (count (count/volume) Serum or plasma 03/20/2019 N2N/CCD Import Serum or plasma 133 High 74- 106 glucose glucose measurement measurement (mass/volume) (mass/volume) Serum or plasma 03/20/2019 N2N/CCD Import Serum or plasma 34 High 7-18 urea nitrogen urea nitrogen measurement measurement (mass/vo (mass/volume) Serum or plasma 03/20/2019 N2N/CCD Import Serum or plasma 1.0 0.6-1.3 creatinine creatinine measurement measurement (mass/volum (mass/volume) Estimated 03/20/2019 N2N/CCD Import Estimated 57 >60 glomerular glomerular filtration rate filtration rate (GFR) non-Afr (GFR) non- GFR/Bsa pred.black 03/20/2019 N2N/CCD Import GFR/Bsa >60 >60 SerPl MDRD-ArVRat pred.black SerPl MDRD-ArVRat Serum or plasma 03/20/2019 N2N/CCD Import Serum or plasma 34.0 urea urea nitrogen/creatinin nitrogen/creatini e mass rati ne mass ratio Sodium SerPl-sCnc 03/20/2019 N2N/CCD Import Sodium SerPl-sCnc 137 136- 145 Serum or plasma 03/20/2019 N2N/CCD Import Serum or plasma 3.9 3.5-5.1 potassium potassium measurement measurement Serum or plasma 03/20/2019 N2N/CCD Import Serum or plasma 104 98-107 chloride chloride measurement measurement Co2 SerPl-sCnc 03/20/2019 N2N/CCD Import Co2 SerPl-sCnc 29 21-32 Serum or plasma 03/20/2019 N2N/CCD Import Serum or plasma 4 Low 8-16 anion gap anion gap Serum or plasma 03/20/2019 N2N/CCD Import Serum or plasma 9.2 8.5-10.1 calcium calcium measurement measurement (mass/volume) (mass/volume) Serum or plasma 03/20/2019 N2N/CCD Import Serum or plasma 7.0 6.4-8.2 protein protein measurement measurement (mass/volume) (mass/volume) Serum or plasma 03/20/2019 N2N/CCD Import Serum or plasma 3.4 3.4-5.0 albumin albumin measurement measurement (mass/volume) (mass/volume) Serum globulin 03/20/2019 N2N/CCD Import Serum globulin 3.6 1.9-4.3 measurement by measurement by calculation calculation (mass/vo (mass/volume) Serum or plasma 03/20/2019 N2N/CCD Import Serum or plasma 0.9 albumin/globulin albumin/globulin mass ratio mass ratio Serum or plasma 03/20/2019 N2N/CCD Import Serum or plasma 0.3 0.2-1.0 total bilirubin total bilirubin measurement (mass/ measurement (mass/volume) Serum or plasma 03/20/2019 N2N/CCD Import Serum or plasma 22 15-37 aspartate aspartate aminotransferase aminotransferase measure measurement (enzymatic activity/volume) Serum or plasma 03/20/2019 N2N/CCD Import Serum or plasma 40 12-78 alanine alanine aminotransferase aminotransferase measureme measurement (enzymatic activity/volume) Serum or plasma 03/20/2019 N2N/CCD Import Serum or plasma 109 45-117 alkaline alkaline phosphatase phosphatase measurement ( measurement (enzymatic activity/volume) Serum or plasma 03/20/2019 N2N/CCD Import Serum or plasma 182 56-289 lipase measurement lipase (enzymatic acti measurement (enzymatic activity/volume) Automated urine 03/20/2019 N2N/CCD Import Automated urine Yellow Yellow color color determination determination Appearance of 03/20/2019 N2N/CCD Import Appearance of Clear Clear Urine Urine Urine glucose 03/20/2019 N2N/CCD Import Urine glucose Negative Negative detection by detection by automated test automated test strip strip Urine bilirubin 03/20/2019 N2N/CCD Import Urine bilirubin Negative Negative detection by detection by automated test automated test strip strip Urine ketone 03/20/2019 N2N/CCD Import Urine ketone Negative Negative detection by detection by automated test automated test strip strip Urine specific 03/20/2019 N2N/CCD Import Urine specific 1.022 1.010-1.0 gravity gravity 30 measurement by measurement by refractometr refractometry Hgb Ur Ql 03/20/2019 N2N/CCD Import Hgb Ur Ql Negative 0-2 Strip.auto Strip.auto Urine pH 03/20/2019 N2N/CCD Import Urine pH 5.5 Low 6.5-7.5 measurement by measurement by automated test automated test strip strip Urine protein 03/20/2019 N2N/CCD Import Urine protein Trace Negative detection by detection by automated test automated test strip strip Urine urobilinogen 03/20/2019 N2N/CCD Import Urine <2.0 < 2.0 detection by urobilinogen automated test str detection by automated test strip Urine nitrite 03/20/2019 N2N/CCD Import Urine nitrite Negative Negative detection by detection by automated test automated test strip strip Urine leukocyte 03/20/2019 N2N/CCD Import Urine leukocyte Trace High Negative esterase detection esterase by automated te detection by automated test strip Urine erythrocyte 03/20/2019 N2N/CCD Import Urine erythrocyte 3-5 0-2 count by count by computer-assisted computer-assisted micro microscopy (number/high power field) Automated urine 03/20/2019 N2N/CCD Import Automated urine 3-5 0-5 sediment leukocyte sediment count by micros leukocyte count by microscopy (number/high power field) Urine squamous 03/20/2019 N2N/CCD Import Urine squamous Many None Seen epithelial cells epithelial cells detection by autom detection by automated method Automated 03/20/2019 N2N/CCD Import Automated 7.4 3.1-10.7 leukocyte count leukocyte count (number/volume) (number/volume) Automated blood 03/20/2019 N2N/CCD Import Automated blood 0.0 < 10/ 100 nucleated nucleated WBC erythrocyte count erythrocyte count as per as percentage of total leukocytes Automated blood 03/20/2019 N2N/CCD Import Automated blood 0.4 0.0-5.0 immature immature granulocyte count granulocyte count as perc as percentage of total leukocytes Automated basophil 03/20/2019 N2N/CCD Import Automated 0.7 0.0-1.1 % basophil % Automated 03/20/2019 N2N/CCD Import Automated 3.7 0.0-6.6 eosinophil % eosinophil % Automated monocyte 03/20/2019 N2N/CCD Import Automated 8.5 4.3-13.2 % monocyte % Automated blood 03/20/2019 N2N/CCD Import Automated blood 22.5 20.0- 42.0 lymphocytes/100 lymphocytes/100 leukocytes leukocytes Automated blood 03/20/2019 N2N/CCD Import Automated blood 64.2 40.4- 72.8 neutrophils/100 neutrophils/100 leukocytes leukocytes Automated blood 03/20/2019 N2N/CCD Import Automated blood 10.4 8.9-12.4 platelet mean platelet mean volume measurement volume measurement Automated 03/20/2019 N2N/CCD Import Automated 13.8 11.7-14.4 erythrocyte erythrocyte distribution width distribution ratio width ratio Automated 03/20/2019 N2N/CCD Import Automated 42.9 36-47 erythrocyte erythrocyte distribution width distribution width Automated blood 03/20/2019 N2N/CCD Import Automated blood 291 155-360 platelet count platelet count (count/volume) (count/volume) Automated 03/20/2019 N2N/CCD Import Automated 33.2 30.8-34.3 erythrocyte mean erythrocyte mean corpuscular corpuscular hemoglobin hemoglobin concentration measurement (mass/volume) Automated 03/20/2019 N2N/CCD Import Automated 28.4 25.9-32.7 erythrocyte mean erythrocyte mean corpuscular corpuscular hemoglobin hemoglobin (mass per erythrocyte) Automated 03/20/2019 N2N/CCD Import Automated 85.5 80.9-99.0 erythrocyte mean erythrocyte mean corpuscular volume corpuscular (MCV volume (MCV) measurement Hct VFr Bld Auto 03/20/2019 N2N/CCD Import Hct VFr Bld Auto 38.2 36.0- 46.1 Blood hemoglobin 03/20/2019 N2N/CCD Import Blood hemoglobin 12.7 11.6- 15.8 measurement measurement (mass/volume) (mass/volume) Poc Urinalysis 03/18/2019 [facility] Poc Glucose, Negative Negative Urine Poc Bilirubin, Urine Negative Negative Poc Ketone, Urine Negative Negative Poc Specific [place], Urine <= 1.005 Low 1.010-1.030 Poc Blood, Urine Trace-intact Abnormal Negative Poc pH, Urine 6.5 Normal 5-9 Poc Protein, Urine Negative Negative Poc Urobilinogen, Urine 0.2 Negative Poc Nitrite, Urine Negative Negative Poc Leukocytes, Urine 2+ Abnormal Negative Poc Color, Urine Yellow Poc Clarity, Urine Clear 46 Urine Culture And 03/18/2019 [facility] Urine Culture SEE RESULT 47, 48 Sensitivities BELOW 1 chest pain 2 0.0 - 0.045 ng/mL: Normal 0.046 - 0.5 ng/mL: Suggestive 0.6 - 1.5 ng/mL: Consistent 3 Note: Persistent reduction for 3 months or more in an eGFR <60 mL/min/1.73 m2 defines CKD. Patients with eGFR values >/=60 mL/min/1.73 m2 may also have CKD if evidence of persistent proteinuria is present. The original MDRD equation for estimated GFR is not valid for patients less than 18 years of age. Additional information may be found at www.kdo[facility].org. 4 06/14 preOV 5 Clinical Guidelines for recommended serum 25(OH)Vitamin D Deficient at less than 20 ng/mL Insufficient at 20 to <30 ng/mL Sufficient at 30-100 ng/mL Toxicity at greater than 100 ng/mL 6 Updated reference range on new analyzer 7 Updated reference range on new analyzer 8 Updated reference range 10-25-2018 9 Concerning GFR Guidelines for Americans: Normal function or mild renal disease, if clinically at risk: >/= 60 mL/min Moderately decreased: 30-59 Severely decreased: 15-29 Renal failure: <15 There is reduced accuracy above 60ml/min/1.73 m squared, but the numeric value may be clinically useful in the near 60 range 10 Concerning GFR Guidelines: Normal function or mild [...] drugs that are excreted by the kidneys. 11 Updated Reference Range 12 Reference range: <=10.9 Performed by [facility], [address] [place] [id number] [email or web address], Librado Zuñiga MD, Lab. Director Unless otherwise specified, testing performed by [facility] [address] [place] [address] 13 Per NCEP ATP III Guidelines: Results lower than 40 mg/dL are suggestive of increased risk for coronary artery disease. Results > or = to 60 mg/dL are considered a negative risk factor. 14 Per NCEP ATP III Guidelines: Normal Population <130 Patients with medical conditions: CHD/DM Optimal: <100 Borderline high: 130-159 High: 160-189 Very high: >189 15 Microbiology results SOURCE Clean Catch Midstream FINAL RESULT No growth 16 After 06/01/19 OV cc: DR DENSON (FAXED 06/04) 17 Updated Reference Range 04/2019 18 Updated Reference Range 04/2019 19 Updated Reference Range 04/2019 20 Updated Reference Range 04/2019 21 Updated Reference Range 04/2019 22 Updated Reference Range 04/2019 23 Updated Reference range 04/2019 24 Updated Reference range 04/2019 25 Updated Reference Range 04/2019 26 Updated Reference Range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
--- OUTSIDE RECORDS SUMMARY | 2019-09-09 17:56 | XMS REPORT | Continuity of Care Document ---
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 light activity, avoid lying down within 2 hours after a mealI48.91 Unspecified atrial fibrillationComments:Doing well. Continue current treatment and routine follow-up with Functional Status Description No Information Available Mental [...] providers, Tracee Jimenez, on 04/18 @ 1015. NEVILLE 04/17 [address] [place] [address] [phone]
--- OUTSIDE RECORDS SUMMARY | 2019-09-09 17:56 | XMS REPORT | Continuity of Care Document ---
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 Medicine Problems Active Problems Provider Date Primary [...] cardiovascular Frankie Parry M.D., Onset: 03/26/2016 examination [facility] Allergic condition Frankie Parry M.D., Onset: 03/26/2016 [facility] Other allergy, subsequent encounter Frankie Parry M.D., Onset: 2016 [facility] Type 2 diabetes mellitus Frankie Parry M.D., Onset: 06/23/2017 [facility] Paroxysmal atrial fibrillation Frankie Parry M.D., Onset: 10/03/2018 [facility] Malaise and fatigue Frankie Parry M.D., Onset: 04/27/2019 [facility] Allergic reaction Onset: Vaginal bleeding Onset: Facial swelling Onset: Reactive airways dysfunction syndrome Onset: Acute exacerbation of chronic Onset: bronchitis Hypoxia Onset: Social History Type Date Description Comments Sex Unknown Tobacco Use Start: Unknown Never Smoked Cigarettes ETOH Use Never used alcohol Tobacco Use Start: Unknown Patient denies history of smoking Recreational Drug Use Denies Drug Use Smoking Status Reviewed: 07/06/19 Patient denies history of smoking Allergies, Adverse Reactions, Alerts Active Allergies Reaction Severity Comments Date Sulfa Drugs 07/07/2011 Zithromax 07/07/2011 Losartan lip swelling 01/28/2016 Clarithromycin Anaphylaxis 04/18/2019 Fentanyl Throat Swelling 04/18/2019 Lisinopril Eye Swelling 04/18/2019 Ofloxacin Insomnia 04/18/2019 Silver Sulfadiazine Edema 04/18/2019 Soybean Preparation Anaphylaxis 04/18/2019 Tramadol Lip Swelling 04/18/2019 Medications Active Medications SIG Qnty Indications Ordering Date Provider Metoprolol Succinate 1 tab by mouth 90tabs I10 Graciela Haywood 08/02/2019 ER every day LEOPOLDO Castillo, 25mg Tablets ER 24HR [employer] Amlodipine Besylate 1 by mouth every 30tabs Sohan, 07/30/2019 10mg day Frankie Pack M.D., Tablets [facility] Torsemide Take One Tablet By 90tabs I42.9 Sohan, 09/29/2015 10mg Tablets Mouth Every Day Frankie Pack M.D., [facility] Metamucil 4 po daily for Unknown 0.52gm Capsules constipation Hydrocodone-Acetaminop 1/2-1 po every 8 Unknown hen hours as needed 5-325mg Tablets mdd3 Clotrimazole apply to affected Unknown Anti-Fungal area 3x/day as 1% Cream needed Desloratadine 1 tab by mouth Unknown 5mg Tablets every day as needed Dispers congestion Estropipate 2 po daily Unknown 0.75mg Tablets Epipen 2-Jordan use as directed as Unknown 0.3mg/0.3ML needed for allergic Solution Auto-Inject reaction Cholestyramine 1 packet po daily. Unknown 4gm Packet Albuterol Sulfate nebulized every 4-6 Unknown hours as needed (2.5mg/3ML) 0.083% Nebulizer Amiodarone HCL 1 by mouth every Alcidesenko, 100mg day Frankie Pack M.D., Tablets [facility] Citalopram 1 by mouth every Unknown Hydrobromide day 20mg Tablets Oxybutynin Chloride 1 po daily Unknown 5mg Tablets Omeprazole 1 by mouth every Unknown 20mg Capsules day DR Magnesium 1 po daily Unknown 400mg Tablets Xarelto 1 by mouth every 90tabs Sohan, 20mg Tablets day Frankie Pack M.D., FACDelores Hydroxyzine HCL 1 po daily Unknown 25mg Tablets Levocetirizine 1 by mouth every Unknown Dihydrochloride day 5mg Tablets Metformin HCL one po twice daily. Hubert Bassett MD 850mg Tablets Immunizations CPT Code Status Date Vaccine Lot # [id number] Given Unknown Pneumovax Injection Vital Signs Date Vital Result Comment 08/02/2019 11:31am BP Systolic Sitting Left Arm 142 mmHg BP Diastolic Sitting Left Arm 76 mmHg Heart Rate 83 /min Respiratory Rate 18 /min Height 65 inches 5'5" per pt Weight 221.00 lb BMI (Body Mass Index) 36.8 kg/m2 BSA (Body Surface Area) 2.06 m2 [place] body weight in kilograms 57 kg O2 Saturation Level with Exercise 96 % 07/06/2019 11:24am BP Systolic Sitting Left Arm 150 mmHg BP Diastolic Sitting Left Arm 77 mmHg Heart Rate 78 /min Respiratory Rate 20 /min Height 65 inches 5'5" per pt Weight 222.00 lb BMI (Body Mass Index) 36.9 kg/m2 BSA (Body Surface Area) 2.07 m2 [place] body weight in kilograms 57 kg O2 % BldC Oximetry 93 % ra Results Test Acquired Facility Test Result H/L Range Note Date Neutrophils # 04/13/2019 N2N/CCD Import Neutrophils # [...] GFR 46 >60 black SerPl (Non- MDRD-ArVRat Micronesian GFR/Bsa 04/13/2019 N2N/CCD Import Estimated GFR 55 [...] N2N/CCD Import Urine Specific 1.022 1.010-1.03 Refractometry Shiro 0 Hgb Ur Ql 04/13/2019 N2N/CCD Import [...] N2N/CCD Import Red Blood Count 4.45 3.90-5.40 Hgb Bld-mCnc 04/13/2019 N2N/CCD Import Hemoglobin 12.6 11.6-15.8 nRBC/100 WBC Bld 04/13/2019 N2N/CCD Import Nucleated Red 0.0 < 10/ 100 Auto-Rto Blood Cells % WBC (auto) Imm 04/13/2019 N2N/CCD Import Immature 0.4 0.0-5.0 Granulocytes/bright Granulocyte % k NFr Bld Auto (Auto) [...] Auto 04/13/2019 N2N/CCD Import Hematocrit 37.6 36.0-46.1 Lab Results 03/20/2019 N2N/CCD Import Urine RBC 3-5 0-2 WBC #/area UrnS 03/20/2019 N2N/CCD Import Urine WBC 3-5 0-5 HPF Squamous Ur Ql 03/20/2019 N2N/CCD Import Urine Epithelial Many None Seen Auto Cells Lipase 03/20/2019 N2N/CCD Import Lipase 182 56-289 [facility] Procedures Date Code Description Status 07/06/2019 87056 EKG-Tracing And Report Completed 04/27/2019 26222 EKG-Tracing And Report Completed Medical Devices Description No Information Available Encounters Type Date Location Provider Dx Diagnosis Office Visit 08/02/2019 Cardiology Office Graciela Haywood I10 Essential ( primary) 11:20a LEOPOLDO Castillo, hypertension [employer] R07.9 Chest pain, unspecified I42.9 Cardiomyopathy, unspecified I48.0 Paroxysmal atrial fibrillation E78.2 Mixed hyperlipidemia Office Visit 07/06/2019 Cardiology Sohan, Z01.810 Encounter for 11:00a Office Frankie Pack M.D., preprocedural [facility] cardiovascular examination I42.9 Cardiomyopathy, unspecified I48.0 Paroxysmal atrial fibrillation Office Visit 04/27/2019 Cardiology Frankie Parry I48.0 Paroxysmal atrial 11:20a Office Maritza Pack, [facility] fibrillation I42.9 Cardiomyopathy, unspecified E78.2 Mixed hyperlipidemia R53.83 Other fatigue E11.9 Type 2 diabetes mellitus without complications Assessments Date Code Description Provider 08/02/2019 I10 Essential (primary) hypertension Graciela Haywood, LEOPOLDO, [employer] 08/02/2019 R07.9 Chest pain, unspecified Graciela Haywood MSN, [employer] 08/02/2019 I42.9 Cardiomyopathy, unspecified Graciela Haywood, LEOPOLDO, [employer] 08/02/2019 I48.0 Paroxysmal atrial fibrillation Graciela Haywood, MSN, [facility] 08/02/2019 E78.2 Mixed hyperlipidemia Graciela Haywood, MSN, [facility] 07/06/2019 Z01.810 Encounter for preprocedural Frankie Parry M.D., cardiovascular examination [facility] 07/06/2019 I42.9 Cardiomyopathy, unspecified Frankie Parry M.D., [facility] 07/06/2019 I48.0 Paroxysmal atrial fibrillation Frankie Parry M.D., [facility] 04/27/2019 I48.0 Paroxysmal atrial fibrillation Frankie Parry M.D., [facility] 04/27/2019 I42.9 Cardiomyopathy, unspecified Frankie Parry M.D., [facility] 04/27/2019 E78.2 Mixed hyperlipidemia Frankie Parry M.D., [facility] 04/27/2019 R53.83 Other fatigue Frankie Parry M.D., [facility] 04/27/2019 E11.9 Type 2 diabetes mellitus without Frankie Parry M.D., complications [facility] Plan of Treatment Future Appointment(s):08/23/2019 10:20 am - Graciela Haywood MSN, [employer] at Cardiology [id number]/10/2020 11:20 am - Frankie Parry M.D., [facility] at Cardiology [id number]/02/2019 - Graciela Haywood MSN, [id number] Essential ( primary) hypertensionNew Medication:Metoprolol Succinate ER 25 mg - 1 tab by mouth every dayComments:Will add back the BB and she will continue to monitor the BP at home.R07.9 Chest pain, unspecifiedNew Orders:Nuclear Stress TestSerene, Ordered: 08/02/19Comments:We will order a nuclear stress test to evaluate the patient's ischemic potential.I42.9 Cardiomyopathy, unspecifiedComments:No changes.I48.0 Paroxysmal atrial fibrillationComments: Monitor.E78.2 Mixed hyperlipidemiaAllFollow up:After nuclear stress test completed. Functional Status Functional Condition Comment Date Status Independent with all ADL's Active Independent with all IADL's Active Mental Status Description No Information Available Referrals Description No Information Available
[2019-09-09 19:04] VITALS: BP 146/93
--- NOTE | 2019-09-09 19:08 | UC ---
Throat Pain/Nasal Miles HPI - HPI Summary HPI Summary: Has been on Amoxicillin for 10 days for sinus infection and sinus pain is now getting worse. - History of Current Complaint Stated Complaint: SINUS/FEVER Hx Obtained From: Patient Hx Last Menstrual Period: n/a Onset/Duration: Gradual Onset, Lasting Days - 10+, Worse Since - today Cough: None Associated Signs & Symptoms: Positive: Sinus Discomfort, Nasal Discharge - allergies Related History: Seasonal Allergies - Allergies/Home Medications Allergies/Adverse Reactions: Allergies Allergy/AdvReac Type Severity Reaction Status Date / Time azithromycin Allergy Swelling Verified 09/09/19 18:56 Of Face,Lips,& Throat Cephalosporins Allergy Swelling Verified 09/09/19 18:56 Of Face,Lips,& Throat clarithromycin Allergy Swelling Verified 09/09/19 18:56 Of Face,Lips,& Throat fentanyl Allergy Swelling Verified 09/09/19 18:56 lansoprazole [From Prevacid] Allergy Unknown Verified 09/09/19 18:56 Reaction Details lisinopril Allergy Unknown Verified 09/09/19 18:56 Reaction Details losartan Allergy Swelling Verified 09/09/19 18:56 Of Face,Lips,& Throat ofloxacin Allergy Swelling Verified 09/09/19 18:56 silver sulfadiazine Allergy Unknown Verified 09/09/19 18:56 Reaction Details soybean Allergy Unknown Verified 09/09/19 18:56 Reaction Details Sulfa (Sulfonamide Allergy Swelling Verified 09/09/19 18:56 Antibiotics) Of Face,Lips,& Throat tramadol Allergy Unknown Verified 09/09/19 18:56 Reaction Details Home Medications: Home Medications Citalopram TAB* [Celexa TAB*] 20 mg PO QAM 04/13/15 [History Confirmed 09/09/19] glipiZIDE TAB* [Glucotrol TAB*] 10 mg PO QAM 04/13/15 [History Confirmed ] metFORMIN* [Glucophage 850 MG TAB *] 850 mg PO QPM 04/13/15 [History Confirmed 09/09/19] Torsemide TAB* [Demadex 20 MG*] 10 mg PO QAM 11/20/15 [History Confirmed ] LevoCETirizine TAB (NF) [Xyzal TAB (NF)] 5 mg PO QAM 03/31/16 [History Confirmed 09/09/19] Cholecalciferol (Vitamin D3) [Vitamin D3] 1,000 unit PO QAM 01/06/17 [History Confirmed 09/09/19] amLODIPine TAB* [Norvasc 5 mg TAB*] 5 mg PO BEDTIME 01/06/17 [History Confirmed 09/09/19] Rivaroxaban TAB(*) [Xarelto 20 mg] 20 mg PO BEDTIME 11/07/18 [History Confirmed 09/09/19] Albuterol 2.5MG/3ML (0.083%)* [Ventolin 2.5 MG/3 ML NEB.SAM*] 2.5 mg INH Q4H PRN 03/18/19 [History Confirmed 09/09/19] Albuterol HFA INHALER* [Ventolin HFA Inhaler*] 2 puff INH Q4H PRN 03/18/19 [ History Confirmed 09/09/19] Magnesium Oxide TAB* [MagOx 400 TAB*] 400 mg PO QAM 03/18/19 [History Confirmed 09/09/19] Acetaminophen [Tylenol] 650 mg PO Q6H PRN 07/17/19 [History Confirmed 09/09/19] Amiodarone HCl [Amiodarone HCl-] 100 mg PO QAM 07/17/19 [History Confirmed 09/08] Docusate CAP* [Colace Cap*] 200 mg PO QAM 07/17/19 [History Confirmed 09/09/19] Hydrocodone/Acetaminophen [Hydrocodone-Acetamin 5-325 mg] 1 tab PO Q6H PRN 07/17 [History Confirmed 09/09/19] Omeprazole 20 mg PO QAM 07/17/19 [History Confirmed 09/09/19] Psyllium Husk/Calcium Carb [Metamucil Plus Calcium Capsule] 4 cap PO QAM [History Confirmed 09/09/19] Amoxicillin/Clavulanate TAB* [Augmentin TAB 875*] 875 mg PO BID #20 tab [Rx] Metoprolol Tartrate TAB* [Lopressor TAB*] 1 tab DAILY 09/09/19 [History Confirmed 09/09/19] PMH/Surg Hx/FS Hx/Imm Hx Endocrine History: Diabetes Respiratory History: Asthma Other History Of: Anticoagulant Therapy - since 06/08/2018 Dr Parry - Surgical History Surgical History: Yes Surgery Procedure, Year, and Place: [facility] ONE KNEE REPLACED IN [place]; parathyroid(2010, [facility]); gallbladder LONG TIME AGO. LEON CARPAL TUNNEL RELEASE; HYSTERECTOMY - Family History Known Family History: Positive: Hypertension, Diabetes - Social History Occupation: Retired Lives: Alone Alcohol Use: None Substance Use Type: None Smoking Status (MU): Never Smoked Tobacco Have You Smoked in the Last Year: No - Immunization History Most Recent Influenza Vaccination: 2016 Most Recent Tetanus Shot: UTD Most Recent Pneumonia Vaccination: UTD Review of Systems All Other Systems Reviewed And Are Negative: Yes Constitutional: Positive: Chills, Fatigue ENT: Positive: Nasal Discharge, Sinus Pain/Tenderness Musculoskeletal: Positive: Myalgia Physical Exam Triage Information Reviewed: Yes Appearance: No Pain Distress, Well-Nourished, Ill-Appearing - mild Vital Signs Reviewed: Yes Eyes: Positive: Conjunctiva Clear ENT: Positive: Pharynx normal, Nasal congestion, TMs normal Neck exam: Normal Respiratory Exam: Normal Cardiovascular Exam: Normal Musculoskeletal Exam: Normal Neurological Exam: Normal Psychological Exam: Normal Skin Exam: Normal Throat Pain/Nasal Course/Dx - Differential Dx/Diagnosis Differential Diagnosis/HQI/PQRI: Otitis Media, Pharyngitis, Sinusitis, URI Provider Diagnosis: Acute bacterial sinusitis, Allergic rhinitis Discharge ED - Sign-Out/Discharge Documenting (check all that apply): Patient Departure All imaging exams completed and their final reports reviewed: No Studies - Discharge Plan Condition: Stable Disposition: HOME Prescriptions: Amoxicillin/Clavulanate TAB* [Augmentin TAB 875*] 875 mg PO BID #20 tab Patient Education Materials: Sinusitis (ED), Allergies (ED) Referrals: Sinan Juarez MD [Primary Care Provider] - Additional Instructions: NEILMED SINUS RINSE: CHECK OUT AT [facility] Saline nasal wash helps with mucous, allergies and congestion. It can be used up to twice a day or only as needed. Use lukewarm tap water. It does not have to be sterilized or distilled water. Tilt your head straight down into the sink. Do 1/3 on each side and snort out of both nostrils. Repeat the process with 1/6 of the bottle on each side with snorting in between to finish the solution in the bottle - Billing Disposition and Condition Condition: STABLE Disposition: Home
[2019-09-09] MEDS ORDERED: Amoxicillin/Clavulanate TAB* 875 MG PO ONE (19:16)
== END 2019-09-09 19:27 | disposition home or self-care (01) ==
LOC: UCCORT 17:43
DX: J01.90 Acute sinusitis, unspecified (principal); B96.89 Other specified bacterial agents as the cause of diseases classified elsewhere; J30.9 Allergic rhinitis, unspecified; E11.9 Type 2 diabetes mellitus without complications; J45.909 Unspecified asthma, uncomplicated; Z88.1 Allergy status to other antibiotic agents; Z88.8 Allergy status to other drugs, medicaments and biological substances; Z88.2 Allergy status to sulfonamides; Z91.018 Allergy to other foods; Z88.6 Allergy status to analgesic agent; Z79.01 Long term (current) use of anticoagulants; Z79.84 Long term (current) use of oral hypoglycemic drugs; Z79.899 Other long term (current) drug therapy
CPT/HCPCS: 99212; A9270-GY; G0463

== ENCOUNTER 2022-08-10 13:28 | Inpatient (IN) ==
[2022-08-10] MEDS ORDERED: Magnesium Hydroxide LIQ 30 ML UDC PO PRN (13:44)
[2022-08-10] MEDS ORDERED: Morphine 2 MG/ML SYRINGE IV PRN (13:44)
[2022-08-10] MEDS ORDERED: Lactulose 30 ml UDC PO PRN (13:44)
[2022-08-10] MEDS ORDERED: Ondansetron 4 mg VIAL 2 MG/ML 2 ml VIAL IV PRN (13:44)
[2022-08-10] MEDS ORDERED: Ondansetron ODT 4 mg TAB 4 MG TAB PO PRN (13:44)
[2022-08-10] MEDS ORDERED: Vancomycin per Pharmacy 1 EA NOTE FOLLOW UP SCH (14:00)
[2022-08-10 16:25] LABS: ABS Basophils 0.1 10^3/ul (0-0.2); ABS Eosinophils 0.2 10^3/ul (0-0.6); ABS Lymphocytes 1.2 10^3/ul (1.0-4.8); ABS Monocytes 0.9 10^3/ul (0-0.8); ABS Neutrophils 12.1 10^3/ul (1.5-7.7); Eosinophil % 1.6 %; Hematocrit 45 % (35-47); Hemoglobin 14.9 g/dL (12.0-16.0); Lymphocyte % 8.4 %; Mean Corpuscular HGB Conc 33 g/dL (31-36); Mean Corpuscular Hemoglobin 29 pg (27-31); Mean Corpuscular Volume 87 fL (80-97); Mean Platelet Volume 8.1 fL (7.4-10.4); Platelet Count 277 10^3/uL (150-450); Red Blood Count 5.17 10^6 /uL (3.70-4.87); Red Cell Distribution Width 14 % (10-15); White Blood Count 14.5 10^3/uL (3.5-10.8)
[2022-08-10 16:40] LABS: INR 1.02 (0.88-1.18)
[2022-08-10] MEDS ORDERED: Dextrose 50% Syringe 50 ml 25 GM/50 ML SYRINGE IV PUSH PRN (16:54)
[2022-08-10 16:56] LABS: C Reactive Protein 43.44 mg/L (<8.01); Calcium 8.9 mg/dL (8.6-10.3); Creatinine, Serum 1.11 mg/dL (0.51-0.95); Potassium 3.9 mmol/L (3.5-5.0)
[2022-08-10] MEDS ORDERED: Zosyn per Pharmacy NOTE FOLLOW UP SCH (17:00)
[2022-08-10] MEDS ORDERED: Vancomycin 1,250 MG in NS 0.9% 250 ml 250 ML IVPB ONE (17:00)
[2022-08-10] MEDS ORDERED: Piperacillin/Tazobac ADVAN 3.375 GM in NS 0.9% 100 ml BAG 100 ML IV ONE (17:30)
[2022-08-10 20:03] LABS: Erythrocyte Sed Rate 51 mm/Hr (0-29)
[2022-08-10] MEDS ORDERED: Heparin 5000 UNITS/ML 1 mL VIAL SUBCUT SCH (22:00)
[2022-08-10] MEDS: Magnesium Hydroxide LIQ 30 ML UDC PO SCH (22:19)
[2022-08-11] MEDS: Magnesium Hydroxide LIQ 30 ML UDC PO SCH ×2 (00:31→12:17)
[2022-08-11] MEDS: ZOSYN 3.375 GM Q8H per EXTENDED INFUSION IV SCH ×2 (00:35→07:43)
[2022-08-11] MEDS: Vitamin THERAPEUTIC TAB PO SCH (10:45)
[2022-08-11] MEDS: Potassium Chlor 20 meq TAB.ER PO SCH (10:45)
[2022-08-11] MEDS ORDERED: VANCOMYCIN 1000 MG IVPB SCH (17:00)
[2022-08-11] MEDS ORDERED: Clindamycin 900 MG/D5W BAG 900 MG/50 ML BAG IVPB ONE (17:59)
[2022-08-11] MEDS ORDERED: Propofol 10 MG/ML 20 ML BTL ONE (20:39)
[2022-08-11] MEDS ORDERED: fentaNYL 100 mcg/2 ml 50 MCG/ML VIAL ONE ×2 (20:39→23:23)
[2022-08-11] MEDS ORDERED: Metoclopramide 5 MG/ML VIAL (10 mg) ONE (20:39)
[2022-08-11] MEDS ORDERED: Ondansetron 4 mg VIAL 2 MG/ML 2 ml VIAL ONE (20:39)
[2022-08-11] MEDS ORDERED: Naloxone 0.4 mg VIAL 0.4 mg/ml 1 ml VIAL IV PRN (22:14)
[2022-08-11] MEDS ORDERED: Prochlorperazine 5 mg/ml 2 ml VIAL (10 mg) IV PRN (22:14)
[2022-08-11] MEDS ORDERED: fentaNYL 100 mcg/2 ml 50 MCG/ML VIAL IV PRN (22:14)
[2022-08-12] MEDS: Magnesium Hydroxide LIQ 30 ML UDC PO SCH ×3 (01:14→20:47)
[2022-08-12] MEDS ORDERED: Polyethylene Glycol 3350 17 GM PACKET PO PRN (03:35)
[2022-08-12 06:30] LABS: ABS Eosinophils 0.1 10^3/ul (0-0.6); ABS Lymphocytes 1.1 10^3/ul (1.0-4.8); ABS Monocytes 0.9 10^3/ul (0-0.8); ABS Neutrophils 11.3 10^3/ul (1.5-7.7); Eosinophil % 0.8 %; Hematocrit 39 % (35-47); Hemoglobin 13.1 g/dL (12.0-16.0); Lymphocyte % 7.9 %; Mean Corpuscular HGB Conc 33 g/dL (31-36); Mean Corpuscular Hemoglobin 30 pg (27-31); Mean Corpuscular Volume 88 fL (80-97); Mean Platelet Volume 8.3 fL (7.4-10.4); Platelet Count 232 10^3/uL (150-450); Red Blood Count 4.46 10^6 /uL (3.70-4.87); Red Cell Distribution Width 14 % (10-15); White Blood Count 13.5 10^3/uL (3.5-10.8)
[2022-08-12 06:45] LABS: C Reactive Protein 90.68 mg/L (<8.01); Calcium 8.1 mg/dL (8.6-10.3); Creatinine, Serum 1.11 mg/dL (0.51-0.95)
[2022-08-12] MEDS: Potassium Chlor 20 meq TAB.ER PO SCH (09:05)
[2022-08-12] MEDS: Vitamin THERAPEUTIC TAB PO SCH (09:06)
[2022-08-12 09:11] LABS: Erythrocyte Sed Rate 51 mm/Hr (0-29)
[2022-08-12] MEDS: Heparin 5000 UNITS/ML 1 mL VIAL SUBCUT SCH (20:48)
[2022-08-13] MEDS: Heparin 5000 UNITS/ML 1 mL VIAL SUBCUT SCH ×2 (08:13→20:40)
[2022-08-13] MEDS: Potassium Chlor 20 meq TAB.ER PO SCH (08:15)
[2022-08-13] MEDS: Magnesium Hydroxide LIQ 30 ML UDC PO SCH ×2 (08:15→20:41)
[2022-08-13] MEDS: Vitamin THERAPEUTIC TAB PO SCH (08:15)
[2022-08-13] MEDS: Vancomycin 1000 MG in NS 0.9% 250 ML IVPB SCH (09:21)
[2022-08-13 10:14] LABS: ABS Basophils 0.1 10^3/ul (0-0.2); ABS Eosinophils 0.3 10^3/ul (0-0.6); ABS Lymphocytes 1.1 10^3/ul (1.0-4.8); ABS Monocytes 0.7 10^3/ul (0-0.8); ABS Neutrophils 10.1 10^3/ul (1.5-7.7); Eosinophil % 2.7 %; Hematocrit 40 % (35-47); Lymphocyte % 9.1 %; Mean Corpuscular HGB Conc 33 g/dL (31-36); Mean Corpuscular Hemoglobin 29 pg (27-31); Mean Corpuscular Volume 89 fL (80-97); Mean Platelet Volume 7.9 fL (7.4-10.4); Platelet Count 234 10^3/uL (150-450); Red Blood Count 4.46 10^6 /uL (3.70-4.87); Red Cell Distribution Width 13 % (10-15); White Blood Count 12.4 10^3/uL (3.5-10.8)
[2022-08-13 11:30] LABS: Calcium 8.3 mg/dL (8.6-10.3); Creatinine, Serum 1.01 mg/dL (0.51-0.95); Potassium 4.4 mmol/L (3.5-5.0); eGFR CKD-EPI 54.9 (>60)
[2022-08-13] MEDS ORDERED: Vancomycin Trough Check NOTE FOLLOW UP ONE (16:30)
[2022-08-14] MEDS ORDERED: Vancomycin Trough Check NOTE FOLLOW UP ONE (05:30)
[2022-08-14 07:38] LABS: ABS Basophils 0.1 10^3/ul (0-0.2); ABS Eosinophils 0.3 10^3/ul (0-0.6); ABS Lymphocytes 1.2 10^3/ul (1.0-4.8); ABS Monocytes 0.8 10^3/ul (0-0.8); ABS Neutrophils 9.3 10^3/ul (1.5-7.7); Eosinophil % 2.8 %; Hematocrit 37 % (35-47); Hemoglobin 12.3 g/dL (12.0-16.0); Lymphocyte % 10.6 %; Mean Corpuscular HGB Conc 34 g/dL (31-36); Mean Corpuscular Hemoglobin 29 pg (27-31); Mean Corpuscular Volume 87 fL (80-97); Mean Platelet Volume 8.3 fL (7.4-10.4); Platelet Count 226 10^3/uL (150-450); Red Cell Distribution Width 14 % (10-15); White Blood Count 11.7 10^3/uL (3.5-10.8)
[2022-08-14 08:00] LABS: C Reactive Protein 135.46 mg/L (<8.01); Creatinine, Serum 0.78 mg/dL (0.51-0.95); Vancomycin Trough 8.1 mcg/mL; eGFR CKD-EPI 74.8 (>60)
[2022-08-14] MEDS: Vancomycin 1000 MG in NS 0.9% 250 ML IVPB SCH (08:49)
[2022-08-14] MEDS: Heparin 5000 UNITS/ML 1 mL VIAL SUBCUT SCH ×2 (08:50→20:39)
[2022-08-14] MEDS: Vitamin THERAPEUTIC TAB PO SCH (08:51)
[2022-08-14] MEDS: Potassium Chlor 20 meq TAB.ER PO SCH (08:51)
[2022-08-14] MEDS: Magnesium Hydroxide LIQ 30 ML UDC PO SCH ×2 (09:10→20:40)
[2022-08-15] MEDS: Vancomycin 1,250 MG in NS 0.9% 250 ml 250 ML IVPB SCH (05:45)
[2022-08-15 06:31] LABS: ABS Basophils 0.1 10^3/ul (0-0.2); ABS Eosinophils 0.3 10^3/ul (0-0.6); ABS Lymphocytes 1.1 10^3/ul (1.0-4.8); ABS Monocytes 0.7 10^3/ul (0-0.8); ABS Neutrophils 7.9 10^3/ul (1.5-7.7); Hematocrit 38 % (35-47); Hemoglobin 12.8 g/dL (12.0-16.0); Lymphocyte % 11.2 %; Mean Corpuscular HGB Conc 33 g/dL (31-36); Mean Corpuscular Hemoglobin 29 pg (27-31); Mean Corpuscular Volume 88 fL (80-97); Mean Platelet Volume 8.1 fL (7.4-10.4); Platelet Count 248 10^3/uL (150-450); Red Blood Count 4.36 10^6 /uL (3.70-4.87); Red Cell Distribution Width 14 % (10-15); White Blood Count 10.1 10^3/uL (3.5-10.8)
[2022-08-15 06:47] LABS: C Reactive Protein 125.32 mg/L (<8.01); Creatinine, Serum 0.66 mg/dL (0.51-0.95); eGFR CKD-EPI 86.4 (>60)
[2022-08-15] MEDS: Vitamin THERAPEUTIC TAB PO SCH (08:32)
[2022-08-15] MEDS: Heparin 5000 UNITS/ML 1 mL VIAL SUBCUT SCH ×2 (08:32→20:23)
[2022-08-15] MEDS: Potassium Chlor 20 meq TAB.ER PO SCH (08:33)
[2022-08-15] MEDS: Magnesium Hydroxide LIQ 30 ML UDC PO SCH ×2 (08:33→20:23)
[2022-08-15 12:17] LABS: Rapid COVID-19 Molecular Undetected (Undetected)
[2022-08-16] MEDS: Vancomycin 1,250 MG in NS 0.9% 250 ml 250 ML IVPB SCH (05:21)
[2022-08-16] MEDS: Potassium Chlor 20 meq TAB.ER PO SCH (08:10)
[2022-08-16] MEDS: Vitamin THERAPEUTIC TAB PO SCH (08:10)
[2022-08-16] MEDS: Heparin 5000 UNITS/ML 1 mL VIAL SUBCUT SCH ×2 (08:11→20:03)
[2022-08-16] MEDS: Magnesium Hydroxide LIQ 30 ML UDC PO SCH ×2 (08:12→20:03)
[2022-08-17] MEDS: Heparin 5000 UNITS/ML 1 mL VIAL SUBCUT SCH (08:10)
[2022-08-17] MEDS: Vitamin THERAPEUTIC TAB PO SCH (08:15)
[2022-08-17] MEDS: Potassium Chlor 20 meq TAB.ER PO SCH (08:15)
[2022-08-17] MEDS: Magnesium Hydroxide LIQ 30 ML UDC PO SCH (08:15)
[2022-08-17 10:37] VITALS: BP 152/85
[2022-08-18] MEDS ORDERED: Vancomycin Trough Check NOTE FOLLOW UP ONE (05:30)
== END 2022-08-17 11:20 | DRG 908 ==
LOC: MED → SUATTDRO 14:26 → OBSVTOIN 14:26
PROVIDERS: ADMIT Orthopaedic Surgery; ATTEND Internal Medicine Hematology & Oncology